=== PATIENT | male | born 1965 | race Caucasian/White ===

== ENCOUNTER 2019-04-26 10:20 | Observation (INO) ==
[2019-04-26 11:19] LABS: Basophils # (auto) 0.02 K/uL (0-0.2); Basophils % (auto) 0.2 %; Eosinophils # (auto) 0.03 K/uL (0-0.5); Eosinophils % (auto) 0.3 %; Hematocrit (blood only) 39.4 % (42-52); Hemoglobin 13.5 g/dL (14.0-18.0); Immature Granulocytes # (auto) 0.02 K/uL (0.00-0.02); Immature Granulocytes % (auto) 0.2 %; Lymphocytes # (auto) 0.86 K/uL (1.2-3.4); Mean Corpuscular Hgb Conc 34.3 g/dL (32-36); Mean Corpuscular Volume 89.1 fL (80-100); Mean Platelet Volume 9.6 fL (7.4-10.4); Monocytes # (auto) 0.83 K/uL (0.11-0.59); Monocytes % (auto) 7.7 %; Neutrophils # (auto) 8.98 K/uL (1.4-6.5); Neutrophils % (auto) 83.6 %; Platelet Count 208 K/uL (130-400); RDW Coefficient of Variation 18.6 % (11.5-14.5); RDW Standard Deviation 61.2 fL (36.4-46.3); Red Blood Count 4.42 M/uL (4.7-6.1); White Blood Count 10.74 K/uL (4.8-10.8)
[2019-04-26 11:30] LABS: INR 1.4 (0.9-1.1); Partial Thromboplastin Ratio 0.9; Partial Thromboplastin Time 23.3 Seconds (21.0-31.0); Prothrombin Time 13.7 Seconds (9.0-12.0)
[2019-04-26 11:38] LABS: Albumin Level 3.9 gm/dl (3.4-5.0); Calcium 8.6 mg/dl (8.5-10.1); Est GFR (African American) 87.1; Est GFR (Non-African American) 75.2; Potassium 4.3 mmol/L (3.5-5.1)
[2019-04-26 11:41] LABS: Albumin Globulin Ratio 1.1 (0.9-2); Bilirubin,Total 1.1 mg/dl (0.2-1); Globulin 3.4 gm/dl (2.5-4.0); Total Protein 7.3 gm/dl (6.4-8.2)
[2019-04-26] MEDS ORDERED: IOVERSOL 100ml IV PRN (11:44)
--- NOTE | 2019-04-26 12:14 | CT Scan Report ---
CT SCAN OF THE ABDOMEN AND PELVIS WITH IV CONTRAST CLINICAL HISTORY: Lower abdominal pain. Hematochezia. COMPARISON STUDY: Abdominal CT dated 04/17/2007. TECHNIQUE: Following the IV administration of 94 cc of Optiray 320, CT scan of the abdomen and pelvi s is performed from the lung bases to the proximal femora. Images are reviewed in the axial, sagittal , and coronal planes. IV contrast was administered without complication. A dose lowering technique wa s utilized adhering to the principles of ALARA. CT DOSE: 583.14 mGy.cm FINDINGS: Lung bases: The heart is top normal in size and without pericardial effusion. There are coronary charlee ry calcifications. There is a tiny hiatal hernia. The lung bases are clear. Liver: The contrast-enhanced liver is normal in size. The liver is cirrhotic in morphology and hetero geneous in attenuation, with nodularity of the surface contour. There is no intrahepatic biliary duct al dilatation. The hepatic veins and portal veins are patent. A subcentimeter hypodensity in segment IV likely represents a cyst but is too small for definitive characterization. Gallbladder: Unremarkable. Spleen: Normal in size and attenuation. Pancreas: Unremarkable. Adrenal glands: Unremarkable. Kidneys: The contrast enhanced kidneys are normal in size and without hydronephrosis. The kidneys enh ance symmetrically. Abdominal vasculature: The abdominal aorta is normal in course and caliber noting moderate to advance d atherosclerotic calcification. Bowel: There is postoperative change from left colon resection with colocolonic anastomosis. No bowel obstruction is seen. There is significant rectosigmoid fecal retention. Mild perirectal stranding is noted. There is mild diverticulosis of the left colon without CT evidence of acute diverticulitis. T he appendix is well-visualized and normal. Peritoneum: There is no intraperitoneal free air or abdominal ascites. Lymphadenopathy: None. Pelvic viscera: The the prostate gland is enlarged and heterogeneous noting median lobe hypertrophy. The bladder is distended. The bladder wall is mildly thickened and trabeculated indicating chronic ou tlet obstruction. There are bilateral varicoceles, with venous collaterals present in the groin bilat erally. Skeletal structures: The skeletal structures are osteopenic. Mild to moderate lumbosacral spondylosis is observed. A large posterior disc osteophyte complex is seen at L4-L5. Degenerative change is note d in the sacroiliac joints and pubic symphysis. No lytic or blastic lesions are seen. IMPRESSION: 1. There is significant rectosigmoid fecal retention with associated perirectal stranding. Correlate clinically for evidence of proctitis. 2. There are postoperative changes from left colon resection with colocolonic anastomosis as well as moderate constipation. No bowel obstruction is seen. 3. The liver shows changes of cirrhosis. 4. Additional findings as above. Electronically signed by: Tyree Mensah M.D. 04/26/2019 12:13 PM
[2019-04-26] MEDS ORDERED: HYDROmorphone INJ 0.5 MG/0.5 ML SYR IV STA (12:38)
[2019-04-26] MEDS ORDERED: GLYCERIN ADULT 12 EA SUPP PR ONE (13:26)
[2019-04-26] MEDS ORDERED: LORazepam 0.5 MG/1 ML VIAL IV STA (13:29)
[2019-04-26] MEDS ORDERED: LAVAGE SOLUTION 4000ML PO SCH (13:30)
--- NOTE | 2019-04-26 14:14 | History & Physical Report ---
Date of Service April 26, 2019 Assessment & Plan (1) Proctitis: (2) Bright red rectal bleeding: (3) Fecal impaction: This is a 54-year-old male who has a significant past medical history of hypertension, anxiety, alcohol use, elevated transaminitis, history of diverticulitis status post left colon resection, pre-DM who presents to [facility] ED secondary to bright red blood per rectum x1 day. In ED patient with gross bright red blood per rectum CT scan abd/pelvis: significant rectosigmoid fecal retention with associated perirectal stranding concerning for proctitis. Postoperative changes from left colon resection with colocolonic anastomosis as well as moderate constipation, no obstruction seen. Liver shows changes concerning of cirrhosis. Hemoglobin and hematocrit stable at 13.5 and 39.4 INR elevated at 1.4 BMP unremarkable LFTs significant for AST 86, T bili 1.1 ED provider discussed case with GI Dr. Saravia - recommends admit and tx with with glycerin suppos and Golytely admit to med/surg administer glycerin suppository/Golytely Repeat H/H at 8pm and in a.m. Consult GI Clear liquid diet, NPO after midnight Hold home meloxicam for now, takes for arthralgias (4) HTN (hypertension): Blood pressure slightly elevated likely secondary to anxiety and discomfort Continue HCTZ and metoprolol (5) Pre-diabetes: A1c 5.7 Diet and lifestyle modification Recommend alcohol cessation (6) Anxiety: Ativan as needed (7) Alcohol use: Patient admits to drinking 6 beers 3-4 nights a week AWSS protocol Gabapentin taper protocol prn ativan (8) Elevated transaminase level: CT scan of abdomen reveals cirrhotic changes of liver AST 86, T bili 1.1, INR 1.4 Transaminases noted to be elevated in 2017 Recommend alcohol cessation GI on board, will have them weigh in on cirrhosis as well will need outpt GI follow up MELD 11 based on current labs (9) DVT prophylaxis: Pt ambulatory no chemical prophylaxis given lower GI bleed Disposition: Discharge to home when able Follow-up: PCP Dr. Lindo upon discharge; also recommend outpatient GI follow-up given proctitis and findings on CT scan consistent with cirrhosis Patient was seen and examined in collaboration with Dr. Lala, please see addendum. History of Present Illness Chief Complaint: Bright red blood per rectum x1 day. Primary Care Provider: Rashmi Lindo MD This is a 54-year-old male who has a significant past medical history of hypertension, anxiety, alcohol use, elevated transaminitis, history of diverticulitis status post left colon resection, pre-DM who presents to [facility] ED secondary to bright red blood per rectum x1 day. Over the past few days patient has overall felt bloated and distended with mild nausea. He has been moving his bowels daily, but when he went to move his bowels this morning he noticed pure blood. Due to blood loss he felt like he was overall dizzy and lightheaded. He recalls having bright red blood per rectum in the past secondary to a hemorrhoid from heavy weightlifting, and thought this might be the case. He denies any pain with his BM or stool incontinence. Currently has stool urgency but unable to defecate. Painful to sit down. Denies any recent fever, chills, sweats, syncope, chest pain, shor tness of breath, abdominal pain, emesis, diarrhea, hematuria, increased urgency or frequency with urination, dysuria. He states he does have a history of diverticulitis which required a sigmoidectomy approximately 10 years ago. He has had a history of colonoscopy significant for diverticulosis but otherwise unremarkable. His appetite has otherwise been fine, no weight loss. Allergies Allergy/AdvReac Type Severity Reaction Status Date / Time lisinopril Allergy Severe ANGIOEDEMA Verified 04/26/19 12:19 Home Medications Home Medications Medication Instructions Recorded Confirmed Type atorvastatin 10 mg PO DAILY 04/26/19 04/26/19 History hydrochlorothiazide 12.5 mg PO DAILY 04/26/19 04/26/19 History lorazepam 0.5 mg PO QID PRN 04/26/19 04/26/19 History meloxicam 15 mg PO DAILY 04/26/19 04/26/19 History metoprolol succinate 25 mg PO BID 04/26/19 04/26/19 History multivitamin 1 tab PO DAILY 04/26/19 04/26/19 History omega [id number]-fish oil [Fish Oil] 1 cap PO DAILY 04/26/19 04/26/19 History Past Med/Surg History Medical History Alcohol use (Chronic) HTN (hypertension) (Chronic) Pre-diabetes (Chronic) Anxiety (Chronic) Left foot drop (Chronic) Diverticulitis (Resolved) Lymphedema (Chronic) Surgical History History of tonsillectomy (Chronic) History of lumbar surgery (Chronic) L4-L5 decompression, residual drop left foot S/P partial colectomy (Resolved) Left colon resection Family History Father Stroke AAA (abdominal aortic aneurysm) Smoker Mother Coronary heart disease Hypertension Smoker Uncle Prostate cancer Diverticulitis Social History Preferred Language: [place] Communication Ability: Effective Beliefs That Will Affect Care: None marital status: Single Current Living Situation: Alone Other Information That Helps Us Care for You: No Feels Safe at Home: Yes Safety Concerns: Feels Safe At This Time Smoking Status: Former smoker packs per day: 1 Years Smoked: 5 Smoking End Da te: 2010 Hx Alcohol Use: Yes Alcohol type: beer Alcohol Intake Frequency: Weekly Alcohol Intake Frequency Comment: 3-4 times per week/6 pack of beer Hx Substance Use: No Childhood Exposure to Second-Hand Smoke: Yes Review of Systems Review of Systems: As noted per HPI, 10 systems reviewed and negative unless noted above. Physical Exam Physical Exam: Gen: WD/WN, M, NAD, standing in room walking around, states "it is painful to sit," pleasant, conversing easily Head: Normocephalic, Atraumatic Eyes: Sclera normal, no conjunctival injection, PERRLA, EOMI ENT: Gross hearing intact, normal pharynx, mucous membranes moist Neck: supple, no adenopathy, No JVD, no bruit, Resp: Clear to auscultation b/l, no wheeze, rales, rhonchi. Normal insp/exp effort, no accessory muscle use CV: Tachycardic rate, regular rhythm, no murmur, rub, gallop, or ectopy Abd: Distended abdomen, firm, NT, hypoactive BS x 4, Musculoskeletal: moves extremities active rom x 4, strength intact, good drafter heating and ventilating strength Extremities: No edema bilaterally Skin: warm, moist, no rash, negative turgor, cap refill < 2sec Neuro: Alert and oriented x 3, speech normal, good mood/affect, cran nerve 2-12 intact grossly : + Bright red blood noted in collection hat and toilet along with drops of blood throughout bathroom and on patient's gown and leg Results & Data Vital Signs (Past 12 Hours) Vital Signs Temp Pulse Pulse Resp BP BP Pulse Ox 04/26/19 12:57 98 H 20 155/88 H 99 04/26/19 10:32 36.5 C 104 H 18 176/94 H 96 Laboratory Results Short CBC 04/26/19 04/26/19 Range/Units 11:04 11:04 WBC 10.74 (4.8-10.8) K/uL Hgb 13.5 L (14.0-18.0) g/dL Hct 39.4 L (42-52) % Plt Count 208 (130-400) K/uL AST 86 H (15-37) U/L BMP 04/26/19 11:04 Sodium 140 Potassium 4.3 Chloride 105 Carbon Dioxide 30 BUN 12 Creatinine 1.10 Glucose 96 Calcium 8.6 Liver Function 04/26/19 Range/Units 11:04 Total Bilirubin 1.1 H (0.2-1) mg/dl AST 86 H (15-37) U/L ALT 52 (12-78) U/L Alkaline Phosphatase 57 (45-117) U/L Albumin 3.9 (3.4-5.0) gm/dl Diagnostic Findings CT abd/pelvis: IMPRESSION: 1. There is significant rectosigmoid fecal retention with associated perirectal stranding. Correlate clinically for evidence of proctitis. 2. There are postoperative changes from left colon resection with colocolonic anastomosis as well as moderate constipation. No bowel obstruction is seen. 3. The liver shows changes of cirrhosis. 4. Additional findings as above. Medications Administered Ioversol (Optiray 320 100ml) 94 ml IV ONCE PRN PRN Reason: Interaction Checking Stop: 04/30/19 11:43 Last Admin: 04/26/19 11:44 Dose: 94 ml Documented by: [id number] Discontinued Medications Hydromorphone HCl (Dilaudid) 0.5 mg IV NOW STA Stop: 04/26/19 12:39 Last Admin: 04/26/19 12:51 Dose: 0.5 mg Documented by: [id number] Lorazepam (Ativan) 0.5 mg in 1 mls @ 1 mls/min IV NOW STA Stop: 04/26/19 13:30 Last Admin: 04/26/19 13:35 Dose: 1 mls/min Documented by: [id number] Code Status & VTE Plan Code Status Full Code VTE Prophylaxis Plan VTE Prophylaxis will be ordered: No Supervising Physician Co-Signing Physician Notes I have seen and examined the patient with physician security assistant and agree with the assessment and plan as above and would like to comment with changes to the plan that patient presented for episodes of bright red blood per rectum and imaging also concerning for Proctitis. Patient with history of hemorrhoids and colon surgery in the past and also has been taking NSAIDs for musculoskeletal pain. Patient also feels urge to defecate but not able to clear the stool burden completely. Patient will to take the Golytely as recommended by gastroenterology and hopefully this will help cleanse the bowels for any potential colonoscopy and at the same time help with patient to defecate stool. He does not have symptoms of bowel obstruction. For this reason, will hold off giving glycerin suppository for hemorrhoids/proctitis. will instead start patient on IV metronizadole for the inflammation and draw blood cultures prior to start antibiotics. agree with other assessment and plans as documented by physician security assistant General: no acute distress Lungs: clear to auscultation bilaterally Heart: regular rate Abdomen: soft, nontender, some bowel distension Extremities: moves all extremities
[2019-04-26] MEDS ORDERED: GABAPENTIN 1200MG ALCOHOL WITHDRAWAL LOAD PO STA (15:11)
[2019-04-26] MEDS ORDERED: ALUMINUM/MAGNESIUM SUSP 30 ML UDC PO PRN (15:11)
[2019-04-26] MEDS ORDERED: POLYETHYLENE (MIRALAX) 17 GM PACK PO PRN (15:11)
[2019-04-26] MEDS ORDERED: ACETAMINOPHEN 325 MG TAB PO PRN (15:11)
[2019-04-26] MEDS ORDERED: LORazepam 1 MG TAB PO PRN (15:11)
[2019-04-26] MEDS ORDERED: ONDANSETRON INJ 2 MG/ML 2 ML VIAL IV PRN (15:11)
[2019-04-26] MEDS ORDERED: MAGNESIUM HYDROXIDE SUSP 30 ML UDC PO PRN (15:11)
[2019-04-26] MEDS ORDERED: GABAPENTIN 600 MG TAB PO SCH (16:00)
[2019-04-26] MEDS ORDERED: metroNIDAZOLE 500 MG/100 ML BAG IV ONE (16:15)
[2019-04-26] MEDS: LORazepam 0.5 MG TAB PO PRN (16:28)
[2019-04-26] MEDS: LAVAGE SOLUTION 4000ML PO SCH ×3 (16:30→23:58)
[2019-04-26 17:06] LABS: Basophils # (auto) 0.05 K/uL (0-0.2); Basophils % (auto) 0.5 %; Hematocrit (blood only) 39.9 % (42-52); Hemoglobin 13.6 g/dL (14.0-18.0); Immature Granulocytes # (auto) 0.01 K/uL (0.00-0.02); Immature Granulocytes % (auto) 0.1 %; Lymphocytes # (auto) 0.59 K/uL (1.2-3.4); Lymphocytes % (auto) 5.3 %; Mean Corpuscular Volume 91.1 fL (80-100); Mean Platelet Volume 9.7 fL (7.4-10.4); Monocytes # (auto) 0.88 K/uL (0.11-0.59); Monocytes % (auto) 7.9 %; Neutrophils # (auto) 9.58 K/uL (1.4-6.5); Neutrophils % (auto) 86.2 %; Platelet Count 224 K/uL (130-400); RDW Coefficient of Variation 18.6 % (11.5-14.5); RDW Standard Deviation 62.3 fL (36.4-46.3); Red Blood Count 4.38 M/uL (4.7-6.1); White Blood Count 11.11 K/uL (4.8-10.8)
[2019-04-26 17:07] LABS: Mean Corpuscular Hgb Conc 34.1 g/dL (32-36)
--- NOTE | 2019-04-26 17:17 | Emergency Department Note ---
Entered by Percy Daly acting as a scribe for ED Provider Note CHIEF COMPLAINT: Rectal Bleed HISTORY OF PRESENT ILLNESS: The patient is a 54 year old male who presents to the Emergency Room with complaints of rectal bleeding. The patient states he had some rectal bleeding that started this morning. The patient had bleeding months ago due to hemorrhoids. They recommended he stay away from blood thinners. The patient feels very bloated and sore. The patient also feels urge to go to the bathroom but he cannot. He also had a surgery on his colon before. The patient sees Seema Schultz. The patient states he ate some apple sauce before coming in but no other medications were taken prior to arrival. The patient denies any other bleeding. Pt denies LOC, headache, fevers, chills, diaphoresis, visual changes, neck pain, chest pain, breathing difficulties, nausea, vomiting, back pain, melena, urinary symptoms, numbness, weakness, lymphadenopathy, rash, or other complaints. REVIEW OF SYSTEMS: See HPI for pertinent positives and negatives. A total of ten systems were reviewed and were otherwise negative. PMHx/PSHx: Pneumonia, diverticulitis, lymphedema SOCIAL HISTORY: Patient lives at home. PHYSICAL EXAM: GENERAL: Awake, alert, anxious HENT: Normocephalic, atraumatic. Oropharynx unremarkable. EYES: PERRL. Normal conjunctiva. Sclera non-icteric. NECK: Inspection normal. Non-tender. Supple. No nuchal rigidity. FROM. No masses. RESPIRATORY: Clear to auscultation. No wheezes. No rales. Normal respiratory effort. CARDIAC: Normal rate. Normal rhythm. No murmurs. No rubs. Extremities warm and well perfused. Pulses equal. No JVD. GI: Soft, non-distended. Mild lower abdominal tenderness. Mild lower distension. No rebound or guarding. No masses. MUSCULOSKELETAL: Atraumatic. Chest examination reveals no tenderness. The back is symmetrical on inspection without obvious abnormality. There is no CVA tenderness to palpation. No joint edema. LOWER EXTREMITIES: Left leg is slightly larger than the right leg which the patient states is chronic. No edema. No discoloration. NEURO: Normal sensorium. No sensory or motor deficits noted. SKIN: No rash or jaundice noted. RECTAL: gross blood no fissures or obvious external hemorrhoids EMERGENCY DEPARTMENT COURSE: 1046: Past medical records reviewed. The patient was evaluated in room C10, and a complete history and physical examination were performed. 1310: I reassessed the patient Dr. Saravia, unix analyst, who recommended glycerin rectal suppositories and a go-lytely prep. The patient will also be admitted. 1330: I spoke with Yu Douglass PA-C under Dr. Lala, about the patients case and they agreed to accept the patient for further examination. 1335: The patient was admitted. MEDICAL DECISION MAKING: Triage Nursing notes reviewed and agree them. The patient's history was concerning for possible gastrointestinal bleeding. Differential diagnosis: Etiologies such as diverticulosis, AVM, coagulopathy, colitis, inflammatory bowel disease, malignancy,Sara-Dickens tear, esophagitis, peptic ulcer disease, variceal bleed, gastritis, epistaxis, fissure, hemorrhoids, as well as others were entertained. Physical exam: As above. The patient had gross blood on rectal examination. ER treatment provided: IV Dilaudid 0.5 mg x 1 On reassessment the patient felt better. Glycerin suppository and GoLYTELY ordered after consultation with gastroenterology Ativan IV Diagnostics interpreted by me: The labs revealed a subtle anemia on CBC. No leukocytosis. Chemistry panel was unremarkable. Slight elevation of AST and INR. Imaging studies: CT scan of the abdomen pelvis was performed. Moderate fecal impaction noted. Mild proctitis. Consultation: Consultation was made with [facility] gastro[facility]ology and a bowel cleanout was r ecommended. Given the GI bleeding and proctitis admission to the hospital was deemed necessary. I discussed this with the patient and he was in agreement. A consultation was placed with the hospitalist. The case was discussed and diagnostics were reviewed. The patient was evaluated in the ER for further treatment. IMPRESSION: Rectal bleeding, proctitis, fecal impaction, constipation PLAN: Further management by hospitalist Impression & Plan Bright red rectal bleeding, Proctitis, Fecal impaction, Constipation Past Med/Surg History Medical History Alcohol use (Chronic) HTN (hypertension) (Chronic) Pre-diabetes (Chronic) Anxiety (Chronic) Left foot drop (Chronic) Diverticulitis (Resolved) Lymphedema (Chronic) Surgical History History of tonsillectomy (Chronic) History of lumbar surgery (Chronic) L4-L5 decompression, residual drop left foot S/P partial colectomy (Resolved) Left colon resection Family History Father Stroke AAA (abdominal aortic aneurysm) Smoker Mother Coronary heart disease Hypertension Smoker Uncle Prostate cancer Diverticulitis Social History Preferred Language: Georgian Communication Ability: Effective Beliefs That Will Affect Care: None marital status: Single Current Living Situation: Alone Other Information That Helps Us Care for You: No Feels Safe at Home: Yes Safety Concerns: Feels Safe At This Time Smoking Status: Former smoker packs per day: 1 Years Smoked: 5 Smoking End Date: 2010 Hx Alcohol Use: Yes Alcohol type: beer Alcohol Intake Frequency: Weekly Alcohol Intake Frequency Comment: 3-4 times per week/6 pack of beer Hx Substance Use: No Childhood Exposure to Second-Hand Smoke: Yes Results & Data Vital Signs Vital Signs - 24 hr 04/26/19 10:32 04/26/19 12:57 04/26/19 14:03 Temperature 36.5 C Temperature Source Oral Sepsis Recent Fever Within 48 Hours No Sepsis New/Unexplained Change in Mental Status No Sepsis Action Taken by Nursing No Action Required Pulse Rate 104 H Pulse Rate [Apical] 98 H Pulse Strength Normal Respiratory Rate 18 20 Respiratory Depth Normal Blood Pressure 176/94 H Blood Pressure [Left Arm] 155/88 H Blood Pressure Mean 121 Blood Pressure Mean [Left Arm] 110 Blood Pressure Position Sitting Pulse Oximetry 96 99 Oxygen Delivery Method Room Air Room Air Room Air Home Medications Current Medication List: was personally reviewed by me Laboratory Data Attestation: I reviewed the patient's lab results. Result diagrams: 04/26/19 16:53 04/26/19 11:04 Lab Results 04/26/19 04/26/19 04/26/19 Range/Units 11:04 11:04 11:04 WBC 10.74 (4.8-10.8) K/uL RBC 4.42 L (4.7-6.1) M/uL Hgb 13.5 L (14.0-18.0) g/dL Hct 39.4 L (42-52) % MCV 89.1 (80-100) fL MCH 30.5 (25-34) pg MCHC 34.3 (32-36) g/dL RDW Std Deviation 61.2 H (36.4-46.3) fL RDW Coeff of Tamera 18.6 H (11.5-14.5) % Plt Count 208 (130-400) K/uL MPV 9.6 (7.4-10.4) fL Immature Gran % (Auto) 0.2 % Neut % (Auto) 83.6 % Lymph % (Auto) 8.0 % [place] % (Auto) 7.7 % Eos % (Auto) 0.3 % Baso % (Auto) 0.2 % Immature Gran # (Auto) 0.02 (0.00-0.02) K/uL Neut # (Auto) 8.98 H (1.4-6.5) K/uL Lymph # (Auto) 0.86 L (1.2-3.4) K/uL [place] # (Auto) 0.83 H (0.11-0.59) K/uL Eos # (Auto) 0.03 (0-0.5) K/uL Baso # (Auto) 0.02 (0-0.2) K/uL PT 13.7 H (9.0-12.0) Seconds INR 1.4 H (0.9-1.1) APTT 23.3 (21.0-31.0) Seconds PTT Ratio 0.9 Sodium 140 (136-145) mmol/L Potassium 4.3 (3.5-5.1) mmol/L Chloride 105 (98-107) mmol/L Carbon Dioxide 30 (21-32) mmol/L Anion Gap 5.0 (3-11) BUN 12 (7-18) mg/dl Creatinine 1.10 (0.6-1.4) mg/dl Est Cr Clr Drug Dosing 91.0 ml/min Est GFR ( Amer) 87.1 Est GFR (Non-Af Amer) 75.2 BUN/Creatinine Ratio 11.0 (10-20) Glucose 96 (70-99) mg/dl Calcium 8.6 (8.5-10.1) mg/dl Total Bilirubin 1.1 H (0.2-1) mg/dl AST 86 H (15-37) U/L ALT 52 (12-78) U/L Alkaline Phosphatase 57 (45-117) U/L Total Protein 7.3 (6.4-8.2) gm/dl Albumin 3.9 (3.4-5.0) gm/dl Globulin 3.4 (2.5-4.0) gm/dl Albumin/Globulin Ratio 1.1 (0.9-2) Blood Type Antibody Screen 04/26/19 Range/Units 11:04 WBC (4.8-10.8) K/uL RBC (4.7-6.1) M/uL Hgb (14.0-18.0) g/dL Hct (42-52) % MCV (80-100) fL MCH (25-34) pg MCHC (32-36) g/dL RDW Std Deviation (36.4-46.3) fL RDW Coeff of Tamera (11.5-14.5) % Plt Count (130-400) K/uL MPV (7.4-10.4) fL Immature Gran % (Auto) % Neut % (Auto) % Lymph % (Auto) % [place] % (Auto) % Eos % (Auto) % Baso % (Auto) % Immature Gran # (Auto) (0.00-0.02) K/uL Neut # (Auto) (1.4-6.5) K/uL Lymph # (Auto) (1.2-3.4) K/uL [place] # (Auto) (0.11-0.59) K/uL Eos # (Auto) (0-0.5) K/uL Baso # (Auto) (0-0.2) K/uL PT (9.0-12.0) Seconds INR (0.9-1.1) APTT (21.0-31.0) Seconds PTT Ratio Sodium (136-145) mmol/L Potassium (3.5-5.1) mmol/L Chloride (98-107) mmol/L Carbon Dioxide (21-32) mmol/L Anion Gap (3-11) BUN (7-18) mg/dl Creatinine (0.6-1.4) mg/dl Est Cr Clr Drug Dosing ml/min Est GFR ( Amer) Est GFR (Non-Af Amer) BUN/Creatinine Ratio (10-20) Glucose (70-99) mg/dl Calcium (8.5-10.1) mg/dl Total Bilirubin (0.2-1) mg/dl AST (15-37) U/L ALT (12-78) U/L Alkaline Phosphatase (45-117) U/L Total Protein (6.4-8.2) gm/dl Albumin (3.4-5.0) gm/dl Globulin (2.5-4.0) gm/dl Albumin/Globulin Ratio (0.9-2) Blood Type AB Negative Antibody Screen NEGATIVE Administered Medications Lorazepam (Ativan) 0.5 mg PO QID PRN PRN Reason: Anxiety Stop: 05/26/19 15:10 Last Admin: 04/26/19 16:28 Dose: 0.5 mg Documented by: [id number] Polyethylene Glycol/Electrolytes (Golytely) 4 dose PO Q4H ALYSE Stop: 04/27/19 03:46 Last Admin: 04/26/19 16:30 Dose: 4 dose Documented by: [id number] Discontinued Medications Gabapentin (Neurontin) 1,200 mg PO TODAY@1600 ALYSE Stop: 04/26/19 16:01 Last Admin: 04/26/19 16:28 Dose: 1,200 mg Documented by: [id number] Hydromorphone HCl (Dilaudid) 0.5 mg IV NOW STA Stop: 04/26/19 12:39 Last Admin: 04/26/19 12:51 Dose: 0.5 mg Documented by: [id number] Lorazepam (Ativan) 0.5 mg in 1 mls @ 1 mls/min IV NOW STA Stop: 04/26/19 13:30 Last Admin: 04/26/19 13:35 Dose: 1 mls/min Documented by: [id number] Ioversol (Optiray 320 100ml) 94 ml IV ONCE PRN PRN Reason: Interaction Checking Stop: 04/30/19 11:43 Last Admin: 04/26/19 11:44 Dose: 94 ml Documented by: [id number] Imaging Data Attestation: I personally reviewed and interpreted this imaging study as follows: Radiologist's Impression: Radiology results have been interpreted by the radiologist and reviewed by me. CT SCAN OF THE ABDOMEN AND PELVIS WITH IV CONTRAST CLINICAL HISTORY: Lower abdominal pain. Hematochezia. COMPARISON STUDY: Abdominal CT dated 04/17/2007. TECHNIQUE: Following the IV administration of 94 cc of Optiray 320, CT scan of the abdomen and pelvis is performed from the lung bases to the proximal femora. Images are reviewed in the axial, sagittal, and coronal planes. IV contrast was administered without complication. A dose lowering technique was utilized adhering to the principles of ALARA. CT DOSE: 583.14 mGy.cm FINDINGS: Lung bases: The heart is top normal in size and without pericardial effusion. There are coronary artery calcifications. There is a tiny hiatal hernia. The sohail ng bases are clear. Liver: The contrast-enhanced liver is normal in size. The liver is cirrhotic in morphology and heterogeneous in attenuation, with nodularity of the surface contour. There is no intrahepatic biliary ductal dilatation. The hepatic veins and portal veins are patent. A subcentimeter hypodensity in segment IV likely represents a cyst but is too small for definitive characterization. Gallbladder: Unremarkable. Spleen: Normal in size and attenuation. Pancreas: Unremarkable. Adrenal glands: Unremarkable. Kidneys: The contrast enhanced kidneys are normal in size and without hy dronephrosis. The kidneys enhance symmetrically. Abdominal vasculature: The abdominal aorta is normal in course and caliber noting moderate to advanced atherosclerotic calcification. Bowel: There is postoperative change from left colon resection with colocolonic anastomosis. No bowel obstruction is seen. There is significant rectosigmoid fecal retention. Mild perirectal stranding is noted. There is mild diverticulosis of the left colon without CT evidence of acute diverticulitis. The appendix is well-visualized and normal. Peritoneum: There is no intraperitoneal free air or abdominal ascites. Lymphadenopathy: None. Pelvic viscera: The the prostate gland is enlarged and heterogeneous noting median lobe hypertrophy. The bladder is distended. The bladder wall is mildly thickened and trabeculated indicating chronic outlet obstruction. There are bilateral varicoceles, with venous collaterals present in the groin bilaterally. Skeletal structures: The skeletal structures are osteopenic. Mild to moderate lumbosacral spondylosis is observed. A large posterior disc osteophyte complex is seen at L4-L5. Degenerative change is noted in the sacroiliac joints and pubic symphysis. No lytic or blastic lesions are seen. IMPRESSION: 1. There is significant rectosigmoid fecal retention with associated perirectal stranding. Correlate clinically for evidence of proctitis. 2. There are postoperative changes from left colon resection with colocolonic anastomosis as well as moderate constipation. No bowel obstruction is seen. 3. The liver shows changes of cirrhosis. 4. Additional findings as above. Electronically signed by: Tyree Mensah M.D. 04/26/2019 12:13 PM Blood Pressure Blood Pressure Findings: Elevated blood pressure Blood Pressure Disposition: further management by hospitalist Discharge Plan Visit Data *Final* Discharge Date/Time: 04/26/19 14:20 Chief Complaint: Rectal Bleed Stated Complaint: RECTAL BLEED ED Provider: Angel Jesus Discharge Problem: Bright red rectal bleeding, Proctitis, Fecal impaction, Constipation Patient Disposition: Admitted As Inpatient Discharge Instructions Interventions: ED Discharge Assessment Last Done: 04/26/19 14:20 Discharge Problem: Constipation Qualifiers: Constipation type: unspecified constipation type Qualified Code(s): K59.00 - Constipation, unspecified The scribe's documentation has been prepared under my direction and personally reviewed by me in its entirety. I confirm that the note above accurately ref lects all work, treatment, procedures, and medical decision making performed by me.
[2019-04-26] MEDS: METOPROLOL SUCC 25MG EXT REL TAB PO SCH (20:46)
[2019-04-26] MEDS: GABAPENTIN 600 MG TAB PO SCH (22:06)
[2019-04-26] MEDS: metroNIDAZOLE 500 MG/100 ML BAG IV SCH (23:55)
[2019-04-27] MEDS: LAVAGE SOLUTION 4000ML PO SCH (04:00)
[2019-04-27] MEDS: GABAPENTIN 600 MG TAB PO SCH (05:42)
[2019-04-27 07:36] LABS: Hematocrit (blood only) 39.9 % (42-52); Hemoglobin 13.5 g/dL (14.0-18.0); Mean Corpuscular Hgb Conc 33.8 g/dL (32-36); Mean Corpuscular Volume 89.7 fL (80-100); Mean Platelet Volume 9.7 fL (7.4-10.4); Platelet Count 207 K/uL (130-400); RDW Coefficient of Variation 18.6 % (11.5-14.5); RDW Standard Deviation 62.1 fL (36.4-46.3); Red Blood Count 4.45 M/uL (4.7-6.1); White Blood Count 8.85 K/uL (4.8-10.8)
[2019-04-27 07:48] LABS: INR 1.4 (0.9-1.1); Prothrombin Time 13.7 Seconds (9.0-12.0)
[2019-04-27 08:08] LABS: Albumin Level 3.7 gm/dl (3.4-5.0); BUN Creatinine Ratio 10.7 (10-20); Calcium 8.8 mg/dl (8.5-10.1); Creatinine Clr Calc Pharmacy 107.6 ml/min; Est GFR (African American) 106.7; Est GFR (Non-African American) 92.1
[2019-04-27 08:13] LABS: Albumin Globulin Ratio 1.1 (0.9-2); Globulin 3.3 gm/dl (2.5-4.0)
[2019-04-27] MEDS ORDERED: hydroCHLOROthiazide 25 MG TAB PO SCH (09:00)
[2019-04-27] MEDS ORDERED: ATORVASTATIN 10 MG TAB PO SCH (09:00)
[2019-04-27] MEDS: METOPROLOL SUCC 25MG EXT REL TAB PO SCH (09:30)
[2019-04-27] MEDS: LORazepam 0.5 MG TAB PO PRN (09:38)
[2019-04-27] MEDS: metroNIDAZOLE 500 MG/100 ML BAG IV SCH (09:38)
--- NOTE | 2019-04-27 10:07 | Gastrointestinal Consultation ---
Date of Consultation April 27, 2019 Assessment & Plan (1) Bright red rectal bleedin54 year old male admitted w/ rectal bleeding, CT w/ evidence of proctitis, fecal retention clinically improve on bowel regimen. He is awake, alert, oriented x 3, feeling well wants to go home. Would avoid narcotic analgesia Would continue a bowel regimen at discharge w/ Miralax 1 capful 1-2 times daily Will need OP Colonoscopy Should have OP GI follow up for questionable cirrhosis on imaging Would recommend ETOH cessation GI to sign off Thank you for allowing us to participate in the care of this patient. Please call with any acute changes, questions or concerns. Please see addendum below with additional recommendation from my supervising physician. Present on Admission?: Yes (2) Fecal impaction: Supervising Physician Co-Signing Physician Notes I have personally seen and examined the patient with KEILY Arteaga. Her note reflects my exam and findings. I agree with her impression and plan. Doing well and wants to go home. Bowels moving more regularly. Will arrange out patient colonoscopy. Advance diet as per hospitalist service. Charles Moreno M.D. History of Present Illness Reason for Consultation: constipation, proctitis Requesting Physician: Spike Attending Physician: Steven Lala MD History of Present Illness 54 year old male with history of HTN, prediabetes, partial sigmoid colectomy for diverticular disease who presented through the ED for evaluation of rectal bleeding. Pt was seen and evaluated, chart reviewed. He endorses chronic issues with rectal bleeding he felt secondary to external hemorrhoid and straining. He typically moves his bowels once daily but notes constipation over the past week. CT w/ evidence of constipation, proctitis. He was provided w/ laxative therapy and now endorses semi-formed and liquidy green stools. No black or bloody stools w/ regimen. He does use OP narctoic analgesia PRN. Drinks ETOH. No fever, chills, weight loss, CP ,SOB. CT 2019: There is significant rectosigmoid fecal retention with associated perirectal stranding. Correlate clinically for evidence of proctitis. There are postoperative changes from left colon resection with colocolonic anastomosis as well as moderate constipation. No bowel obstruction is seen. The liver shows changes of cirrhosis. Allergies Allergy/AdvReac Type Severity Reaction Status Date / Time lisinopril Allergy Severe ANGIOEDEMA Verified 04/26/19 12:19 Home Medications Home Medications Medication Instructions Recorded Confirmed Type atorvastatin 10 mg PO DAILY 04/26/19 04/26/19 History hydrochlorothiazide 12.5 mg PO DAILY 04/26/19 04/26/19 History lorazepam 0.5 mg PO QID PRN 04/26/19 04/26/19 History metoprolol succinate 25 mg PO BID 04/26/19 04/26/19 History multivitamin 1 tab PO DAILY 04/26/19 04/26/19 History omega 4-xpj-era-fish oil [Fish Oil] 1 cap PO DAILY 04/26/19 04/26/19 History polyethylene glycol 3350 [Miralax] 17 g PO DAILY PRN 30 Days #30 ea 04/27/19 Rx Patient History Medical History Alcohol use (Chronic) HTN (hypertension) (Chronic) Pre-diabetes (Chronic) Anxiety (Chronic) Left foot drop (Chronic) Diverticulitis (Resolved) Lymphedema (Chronic) Surgical History History of tonsillectomy (Chronic) History of lumbar surgery (Chronic) L4-L5 decompression, residual drop left foot S/P partial colectomy (Resolved) Left colon resection Family History Father Stroke AAA (abdominal aortic aneurysm) Smoker Mother Coronary heart disease Hypertension Smoker Uncle Prostate cancer Diverticulitis Social History Preferred Language: Bulgarian Communication Ability: Effective Beliefs That Will Affect Care: None marital status: Single Current Living Situation: Alone Other Information That Helps Us Care for You: No Feels Safe at Home: Yes Safety Concerns: Feels Safe At This Time Smoking Status: Former smoker packs per day: 1 Years Smoked: 5 Smoking End Date: 2010 Hx Alcohol Use: Yes Alcohol type: beer Alcohol Intake Frequency: Weekly Alcohol Intake Frequency Comment: 3-4 times per week/6 pack of beer Hx Substance Use: No Childhood Exposure to Second-Hand Smoke: Yes Review of Systems Constitutional: no fever, no chills and no fatigue Respiratory: no cough, no dyspnea, no pain on inspiration and no wheezing Cardiovascular: no chest pain, no radiating jaw, neck or arm pain, no dyspnea on exertion and no palpitations Gastrointestinal: no abdominal pain, no belching, no early satiety, no vomiting and no coffee ground emesis Physical Exam Constitutional: WD/WN, vitals as above Respiratory: normal respiratory effort, lungs clear to auscultation Cardiovascular: RRR, no murmur, no edema Gastrointestinal (Abdomen): normal bowel sounds, soft, nontender, no hepatosplenomegaly Skin: no rashes, warm and dry Results & Data Vital Signs (Past 12 Hours) Vital Signs Temp Pulse Pulse Resp BP Pulse Ox 04/27/19 08:34 37.1 C 86 20 156/84 H 98 04/27/19 00:04 36.8 C 84 14 158/82 H 93 Laboratory Results 04/27/19 04/27/19 04/27/19 Range/Units 07:21 07:21 07:21 WBC 8.85 (4.8-10.8) K/uL RBC 4.45 L (4.7-6.1) M/uL Hgb 13.5 L (14.0-18.0) g/dL Hct 39.9 L (42-52) % MCV 89.7 (80-100) fL MCH 30.3 (25-34) pg MCHC 33.8 (32-36) g/dL RDW Std Deviation 62.1 H (36.4-46.3) fL RDW Coeff of Tamera 18.6 H (11.5-14.5) % Plt Count 207 (130-400) K/uL MPV 9.7 (7.4-10.4) fL Immature Gran % (Auto) % Neut % (Auto) % Lymph % (Auto) % [place] % (Auto) % Eos % (Auto) % Baso % (Auto) % Immature Gran # (Auto) (0.00-0.02) K/uL Neut # (Auto) (1.4-6.5) K/uL Lymph # (Auto) (1.2-3.4) K/uL [place] # (Auto) (0.11-0.59) K/uL Eos # (Auto) (0-0.5) K/uL Baso # (Auto) (0-0.2) K/uL PT 13.7 H (9.0-12.0) Seconds INR 1.4 H (0.9-1.1) APTT (21.0-31.0) Seconds PTT Ratio Sodium 140 (136-145) mmol/L Potassium 4.0 (3.5-5.1) mmol/L Chloride 103 (98-107) mmol/L Carbon Dioxide 32 (21-32) mmol/L Anion Gap 5.0 (3-11) BUN 10 (7-18) mg/dl Creatinine 0.93 (0.6-1.4) mg/dl Est Cr Clr Drug Dosing 107.6 ml/min Est GFR ( Amer) 106.7 Est GFR (Non-Af Amer) 92.1 BUN/Creatinine Ratio 10.7 (10-20) Glucose 82 (70-99) mg/dl Calcium 8.8 (8.5-10.1) mg/dl Total Bilirubin 2.0 H D (0.2-1) mg/dl AST 65 H (15-37) U/L ALT 47 (12-78) U/L Alkaline Phosphatase 48 (45-117) U/L Total Protein 7.0 (6.4-8.2) gm/dl Albumin 3.7 (3.4-5.0) gm/dl Globulin 3.3 (2.5-4.0) gm/dl Albumin/Globulin Ratio 1.1 (0.9-2) Stool Occult Bld Scrn (Negative) POC Stool Occult Blood Blood Type Antibody Screen 04/26/19 04/26/19 04/26/19 Range/Units Unknown Unknown 16:53 WBC 11.11 H (4.8-10.8) K/uL RBC 4.38 L (4.7-6.1) M/uL Hgb 13.6 L (14.0-18.0) g/dL Hct 39.9 L (42-52) % MCV 91.1 (80-100) fL MCH 31.1 (25-34) pg MCHC 34.1 (32-36) g/dL RDW Std Deviation 62.3 H (36.4-46.3) fL RDW Coeff of Tamera 18.6 H (11.5-14.5) % Plt Count 224 (130-400) K/uL MPV 9.7 (7.4-10.4) fL Immature Gran % (Auto) 0.1 % Neut % (Auto) 86.2 % Lymph % (Auto) 5.3 % [place] % (Auto) 7.9 % Eos % (Auto) 0.0 % Baso % (Auto) 0.5 % Immature Gran # (Auto) 0.01 (0.00-0.02) K/uL Neut # (Auto) 9.58 H (1.4-6.5) K/uL Lymph # (Auto) 0.59 L (1.2-3.4) K/uL [place] # (Auto) 0.88 H (0.11-0.59) K/uL Eos # (Auto) 0.00 (0-0.5) K/uL Baso # (Auto) 0.05 (0-0.2) K/uL PT (9.0-12.0) Seconds INR (0.9-1.1) APTT (21.0-31.0) Seconds PTT Ratio Sodium (136-145) mmol/L Potassium (3.5-5.1) mmol/L Chloride (98-107) mmol/L Carbon Dioxide (21-32) mmol/L Anion Gap (3-11) BUN (7-18) mg/dl Creatinine (0.6-1.4) mg/dl Est Cr Clr Drug Dosing ml/min Est GFR ( Amer) Est GFR (Non-Af Amer) BUN/Creatinine Ratio (10-20) Glucose (70-99) mg/dl Calcium (8.5-10.1) mg/dl Total Bilirubin (0.2-1) mg/dl AST (15-37) U/L ALT (12-78) U/L Alkaline Phosphatase (45-117) U/L Total Protein (6.4-8.2) gm/dl Albumin (3.4-5.0) gm/dl Globulin (2.5-4.0) gm/dl Albumin/Globulin Ratio (0.9-2) Stool Occult Bld Scrn Negative (Negative) POC Stool Occult Blood Pending Blood Type Antibody Screen 04/26/19 04/26/19 04/26/19 Range/Units 11:04 11:04 11:04 WBC (4.8-10.8) K/uL RBC (4.7-6.1) M/uL Hgb (14.0-18.0) g/dL Hct (42-52) % MCV (80-100) fL MCH (25-34) pg MCHC (32-36) g/dL RDW Std Deviation (36.4-46.3) fL RDW Coeff of Tamera (11.5-14.5) % Plt Count (130-400) K/uL MPV (7.4-10.4) fL Immature Gran % (Auto) % Neut % (Auto) % Lymph % (Auto) % [place] % (Auto) % Eos % (Auto) % Baso % (Auto) % Immature Gran # (Auto) (0.00-0.02) K/uL Neut # (Auto) (1.4-6.5) K/uL Lymph # (Auto) (1.2-3.4) K/uL [place] # (Auto) (0.11-0.59) K/uL Eos # (Auto) (0-0.5) K/uL Baso # (Auto) (0-0.2) K/uL PT 13.7 H (9.0-12.0) Seconds INR 1.4 H (0.9-1.1) APTT 23.3 (21.0-31.0) Seconds PTT Ratio 0.9 Sodium 140 (136-145) mmol/L Potassium 4.3 (3.5-5.1) mmol/L Chloride 105 (98-107) mmol/L Carbon Dioxide 30 (21-32) mmol/L Anion Gap 5.0 (3-11) BUN 12 (7-18) mg/dl Creatinine 1.10 (0.6-1.4) mg/dl Est Cr Clr Drug Dosing 91.0 ml/min Est GFR ( Amer) 87.1 Est GFR (Non-Af Amer) 75.2 BUN/Creatinine Ratio 11.0 (10-20) Glucose 96 (70-99) mg/dl Calcium 8.6 (8.5-10.1) mg/dl Total Bilirubin 1.1 H (0.2-1) mg/dl AST 86 H (15-37) U/L ALT 52 (12-78) U/L Alkaline Phosphatase 57 (45-117) U/L Total Protein 7.3 (6.4-8.2) gm/dl Albumin 3.9 (3.4-5.0) gm/dl Globulin 3.4 (2.5-4.0) gm/dl Albumin/Globulin Ratio 1.1 (0.9-2) Stool Occult Bld Scrn (Negative) POC Stool Occult Blood Blood Type AB Negative Antibody Screen NEGATIVE 04/26/19 Range/Units 11:04 WBC 10.74 (4.8-10.8) K/uL RBC 4.42 L (4.7-6.1) M/uL Hgb 13.5 L (14.0-18.0) g/dL Hct 39.4 L (42-52) % MCV 89.1 (80-100) fL MCH 30.5 (25-34) pg MCHC 34.3 (32-36) g/dL RDW Std Deviation 61.2 H (36.4-46.3) fL RDW Coeff of Tamera 18.6 H (11.5-14.5) % Plt Count 208 (130-400) K/uL MPV 9.6 (7.4-10.4) fL Immature Gran % (Auto) 0.2 % Neut % (Auto) 83.6 % Lymph % (Auto) 8.0 % [place] % (Auto) 7.7 % Eos % (Auto) 0.3 % Baso % (Auto) 0.2 % Immature Gran # (Auto) 0.02 (0.00-0.02) K/uL Neut # (Auto) 8.98 H (1.4-6.5) K/uL Lymph # (Auto) 0.86 L (1.2-3.4) K/uL [place] # (Auto) 0.83 H (0.11-0.59) K/uL Eos # (Auto) 0.03 (0-0.5) K/uL Baso # (Auto) 0.02 (0-0.2) K/uL PT (9.0-12.0) Seconds INR (0.9-1.1) APTT (21.0-31.0) Seconds PTT Ratio Sodium (136-145) mmol/L Potassium (3.5-5.1) mmol/L Chloride (98-107) mmol/L Carbon Dioxide (21-32) mmol/L Anion Gap (3-11) BUN (7-18) mg/dl Creatinine (0.6-1.4) mg/dl Est Cr Clr Drug Dosing ml/min Est GFR ( Amer) Est GFR (Non-Af Amer) BUN/Creatinine Ratio (10-20) Glucose (70-99) mg/dl Calcium (8.5-10.1) mg/dl Total Bilirubin (0.2-1) mg/dl AST (15-37) U/L ALT (12-78) U/L Alkaline Phosphatase (45-117) U/L Total Protein (6.4-8.2) gm/dl Albumin (3.4-5.0) gm/dl Globulin (2.5-4.0) gm/dl Albumin/Globulin Ratio (0.9-2) Stool Occult Bld Scrn (Negative) POC Stool Occult Blood Blood Type Antibody Screen
--- NOTE | 2019-04-27 12:30 | Hospitalist Progress Note ---
Date of Service April 27, 2019 Assessment & Plan (1) Proctitis: (2) Bright red rectal bleeding: (3) Fecal impaction: This is a 54-year-old male who has a significant past medical history of hypertension, anxiety, alcohol use, elevated transaminitis, history of diverticulitis status post left colon resection, pre-DM who presents to [facility] ED secondary to bright red blood per rectum x1 day. In ED patient with gross bright red blood per rectum CT scan abd/pelvis: significant rectosigmoid fecal retention with associated perirectal stranding concerning for proctitis. Postoperative changes from left colon resection with colocolonic anastomosis as well as moderate constipation, no obstruction seen. Liver shows changes concerning of cirrhosis. Hemoglobin and hematocrit stable at 13.5 and 39.4 INR elevated at 1.4 BMP unremarkable LFTs significant for AST 86, T bili 1.1 -Patient with stable hemoglobin and made bowel movements with Golytely bowel prep that was started on 04/26/19 -Patient was seen by [facility] Gastronenterology service and they recommend outpatient colonoscopy for the bright red blood per rectum that patient presented to hospital for. They will coordinate with patient. -Gastroenterology attending physician does not recommend further antibiotics for proctitis and IV metronidazole stopped on discharge day -Patient may take Miralax 1 capful 1-2 times daily for bowel movements -Patient should avoid excessive use of meloxicam or other NSAID (nonsteroidal anti-inflammatory drugs ) medications (Aleve, Motrin ibuprofen) -Patient should avoid alcohol use -Patient should follow up with primary care doctor to follow up blood counts in 1 week or if more abdomen symptoms (4) HTN (hypertension): -Patient should follow up with primary care doctor on blood pressure control -Continue HCTZ and metoprolol (5) Pre-diabetes: A1c 5.7 Diet and lifestyle modification by avoiding alcohol (6) Anxiety: mood stable (7) Alcohol use: no alcohol withdrawal symptoms while in the hospital recommended alcohol reduction at home (8) Elevated transaminase level: gastronenterology outpatient colonoscopy plans CT scan of abdomen reveals cirrhotic changes of liver and recommended patient to cut down on alcohol use to protect liver from future changes (9) DVT prophylaxis: ambulatory Discharge Diagnosis Bright red rectal bleeding, Proctitis, Fecal impaction, hypertension Subjective Patient able to make bowel movements yesterday from the bowel prep. blood count stable and gastroenterology recommends outpatient colonoscopy. Patient would like to go home. no abdomen pain. bowels feel better. no chest pain. no shortness of breath. no dizziness. no lightheadedness. no vomiting. discussed with patient about avoiding NSAIDs to avoid GI bleed and alcohol to prevent future liver problems and following up with primary care doctor for blood pressure and other health issues Physical Exam Constitutional: WD/WN, vitals as above Eyes: PERRL, conjunctivae normal, anicteric sclerae EOM intact bilaterally ENMT: external ear and nose normal, oropharynx normal Neck: trachea midline, no thyromegaly normal visual inspection Respiratory: normal respiratory effort, lungs clear to auscultation Cardiovascular: RRR, no murmur, no edema Gastrointestinal (Abdomen): normal bowel sounds, soft, nontender, no hepatosp lenomegaly Musculoskeletal: no cyanosis or clubbing, extremities motor strength 5/5 Head/Neck/Chest: normocephalic and head atraumatic Neurologic: PERRL, EOMI, accommodation nl, no face palsy, no dysarthria CN's II-XI intact bilaterally Psychiatric: A+Ox3, euthymic affect Results & Data Vital Signs (Past 12 Hours) Vital Signs Temp Pulse Pulse Pulse Pulse Resp BP 04/27/19 11:57 37.1 C 92 H 20 178/84 H 04/27/19 11:54 37.1 C 86 105 H 84 87 20 156/84 H 04/27/19 08:34 37.1 C 86 20 156/84 H BP Pulse Ox 04/27/19 11:57 97 04/27/19 11:54 145/82 H 98 04/27/19 08:34 98
--- NOTE | 2019-04-27 12:41 | Discharge Summary ---
Date of Service April 27, 2019 Admission HPI Per Admitting Provider This is a 54-year-old male who has a significant past medical history of hypertension, anxiety, alcohol use, elevated transaminitis, history of diverticulitis status post left colon resection, pre-DM who presents to [facility] ED secondary to bright red blood per rectum x1 day. Over the past few days patient has overall felt bloated and distended with mild nausea. He has been moving his bowels daily, but when he went to move his bowels this morning he noticed pure blood. Due to blood loss he felt like he was overall dizzy and lightheaded. He recalls having bright red blood per rectum in the past secondary to a hemorrhoid from heavy weightlifting, and thought this might be the case. He denies any pain with his BM or stool incontinence. Currently has stool urgency but unable to defecate. Painful to sit down. Denies any recent fever, chills, sweats, syncope, chest pain, shortness of breath, abdominal pain, emesis, diarrhea, hematuria, increased urgency or frequency with urination, dysuria. He states he does have a history of diverticulitis which required a sigmoidectomy approximately 10 years ago. He has had a history of colonoscopy significant for diverticulosis but otherwise unremarkable. His appetite has otherwise been fine, no weight loss. Admission Exam Per Admitting Provider Gen: WD/WN, M, NAD, standing in room walking around, states "it is painful to sit," pleasant, conversing easily Head: Normocephalic, Atraumatic Eyes: Sclera normal, no conjunctival injection, PERRLA, EOMI ENT: Gross hearing intact, normal pharynx, mucous membranes moist Neck: supple, no adenopathy, No JVD, no bruit, Resp: Clear to auscultation b/l, no wheeze, rales, rhonchi. 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 Extremities: No edema bilaterally Skin: warm, moist, no rash, negative turgor, cap refill < 2sec Neuro: Alert and oriented x 3, speech normal, good mood/affect, cran nerve 2-12 intact grossly : + Bright red blood noted in collection hat and toilet along with drops of blood throughout bathroom and on patient's gown and leg Principal Diagnosis Bright red rectal bleeding, Proctitis, Fecal impaction, hypertension Discharge Exam Constitutional WD/WN, vitals as above Eyes PERRL, conjunctivae normal, anicteric sclerae EOM intact bilaterally ENMT external ear and nose normal, oropharynx normal Neck trachea midline, no thyromegaly normal visual inspection Respiratory normal respiratory effort, lungs clear to auscultation Cardiovascular RRR, no murmur, no edema Gastrointestinal (Abdomen) normal bowel sounds, soft, nontender, no hepatosplenomegaly Musculoskeletal no cyanosis or clubbing, extremities motor strength 5/5 Head/Neck/Chest: normocephalic and head atraumatic Neurologic PERRL, EOMI, accommodation nl, no face palsy, no dysarthria CN's II-XI intact bilaterally Psychiatric A+Ox3, euthymic affect Discharge Data Allergies Allergy/AdvReac Type Severity Reaction Status Date / Time lisinopril Allergy Severe ANGIOEDEMA Verified 04/26/19 12:19 Consultations 04/26/19 13:26 ED Decision to Admit Stat 04/26/19 15:11 Consult Gastroenterology Routine Ordered Studies 04/26/19 10:59 CT abd pelvis IV con only Stat Hospital Course (1) Proctitis: (2) Bright red rectal bleeding: (3) Fecal impaction: This is a 54-year-old male who has a significant past medical history of hypertension, anxiety, alcohol use, elevated transaminitis, history of diverticulitis status post left colon resection, pre-DM who presents to [facility] ED secondary to bright red blood per rectum x1 day. In ED patient with gross bright red blood per rectum CT scan abd/pelvis: significant rectosigmoid fecal retention with associated perirectal stranding concerning for proctitis. Postoperative changes from left colon resection with colocolonic anastomosis as well as moderate constipation, no obstruction seen. Liver shows changes concerning of cirrhosis. Hemoglobin and hematocrit stable at 13.5 and 39.4 INR elevated at 1.4 BMP unremarkable LFTs significant for AST 86, T bili 1.1 -Patient with stable hemoglobin and made bowel movements with Golytely bowel prep that was started on 04/26/19 -Patient was seen by [facility] Gastronenterology service and they recommend outpatient colonoscopy for the bright red blood per rectum that patient presented to hospital for. They will coordinate with patient. -Gastroenterology attending physician does not recommend further antibiotics for proctitis and IV metronidazole stopped on discharge day -Patient may take Miralax 1 capful 1-2 times daily for bowel movements -Patient should avoid excessive use of meloxicam or other NSAID (nonsteroidal anti-inflammatory drugs ) medications (Aleve, Motrin ibuprofen) -Patient should avoid alcohol use -Patient should follow up with primary care doctor to follow up blood counts in 1 week or if more abdomen symptoms (4) HTN (hypertension): -Patient should follow up with primary care doctor on blood pressure control -Continue HCTZ and metoprolol (5) Pre-diabetes: A1c 5.7 Diet and lifestyle modification by avoiding alcohol (6) Anxiety: mood stable (7) Alcohol use: no alcohol withdrawal symptoms while in the hospital recommended alcohol reduction at home (8) Elevated transaminase level: gastronenterology outpatient colonoscopy plans CT scan of abdomen reveals cirrhotic changes of liver and recommended patient to cut down on alcohol use to protect liver from future changes (9) DVT prophylaxis: ambulatory Discharge Diagnosis Bright red rectal bleeding, Proctitis, Fecal impaction, hypertension Total Time Total Time Spent Total Time Spent (In Minutes): 40 minutes Total Time Includes: Examination of the Patient, Discharge Planning, Medication Reconciliation and Communication With Other Providers Discharge Plan Discharge Items Patient Disposition: Home - Self-Care Reason For Visit: PROCTITIS,LGIB Discharge Diagnosis: Bright red rectal bleeding, Proctitis, Fecal impaction, hypertension Condition: Good Discharge Goals: Improve disease control Activity: Resume your previous activity Non-emergency contact: Primary Care Provider and 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 They will coordinate with patient. Gastroenterology attending physician does not recommend further antibiotics for proctitis and IV metronidazole stopped on discharge day Patient may take Miralax 1 capful 1-2 times daily for bowel movements Patient should avoid excessive use of meloxicam or other NSAID (nonsteroidal anti-inflammatory drugs ) medications (Aleve, Motrin ibuprofen) Patient should avoid alcohol use Patient should follow up with primary care doctor to follow up blood counts in 1 week or if more abdomen symptoms and for further management of other health issues such as hypertension Prescriptions: New polyethylene glycol 3350 [Miralax] 17 gram Powder In Packet 17 g PO DAILY PRN (Reason: constipation) 30 Days Qty: 30 RF: 0 Continued multivitamin Tablet 1 tab PO DAILY RF: 0 hydrochlorothiazide 12.5 mg capsule 12.5 mg PO DAILY RF: 0 metoprolol succinate 25 mg tablet extended release 24 hr 25 mg PO BID RF: 0 atorvastatin 10 mg tablet 10 mg PO DAILY RF: 0 lorazepam 0.5 mg tablet 0.5 mg PO QID PRN (Reason: Anxiety) RF: 0 omega [id number]-ksi-[id number]-fish oil [Fish Oil] 1,000 mg (120 mg-180 mg) Capsule 1 cap PO DAILY RF: 0 Discontinued meloxicam 15 mg tablet 15 mg PO DAILY RF: 0 Stand-Alone Forms: [facility]/Other Patient Handouts: Bleeding Rectal Evaluate Treat, Bleeding Rectal Discharge Orders: Discharge Order (Routine); Ordered 04/27/19 Ordered By: Steven Lala Admission Data Admit Date/Time: 04/26/19 14:04 Attending Provider: Steven Lala Admit Provider: Steven Lala Primary Care Provider: Rashmi Lindo Other Providers: Leopoldo Saravia ; Steven Lala Service: Surgical Services Other Interventions: Discharge Summary Assessment (RN) Last Done: 04/27/19 11:54
[2019-04-27] MEDS ORDERED: GABAPENTIN 600 MG TAB PO SCH (14:00)
[2019-04-28] MEDS ORDERED: GABAPENTIN 600 MG TAB PO SCH (18:00)
[2019-04-30] MEDS ORDERED: GABAPENTIN 600 MG TAB PO SCH (06:00)
== END 2019-04-27 12:46 | disposition home or self-care (01) ==
LOC: ED 10:20 → 3W 10:20

== ENCOUNTER 2019-10-13 14:11 | Inpatient (IN) ==
[2019-10-13] MEDS ORDERED: ACETAMINOPHEN 325 MG TAB PO PRN (14:16)
[2019-10-13] MEDS ORDERED: LORazepam 3 MG/6 ML VIAL IV PRN (14:18)
[2019-10-13] MEDS ORDERED: GABAPENTIN 1200MG ALCOHOL WITHDRAWAL LOAD PO STA (14:18)
[2019-10-13] MEDS ORDERED: LORazepam 1 MG/2 ML VIAL IV PRN (14:18)
[2019-10-13] MEDS ORDERED: ATIVAN IV ALCOHOL WITHDRAWL IV PRN (14:18)
[2019-10-13] MEDS ORDERED: MULTI-VITAMIN INFUSION 10 ML, THIAMINE HCL 100 MG, FOLIC ACID 1 MG in SODIUM CHLORIDE 0... IV ONE (14:18)
[2019-10-13] MEDS ORDERED: LORazepam 2 MG/4 ML VIAL IV PRN (14:18)
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
[2019-10-13 15:44] LABS: Basophils # (auto) 0.03 K/uL (0-0.2); Basophils % (auto) 0.4 %; Eosinophils # (auto) 0.04 K/uL (0-0.5); Eosinophils % (auto) 0.5 %; Hematocrit (blood only) 30.8 % (42-52); Hemoglobin 10.1 g/dL (14.0-18.0); Immature Granulocytes # (auto) 0.33 K/uL (0.00-0.02); Immature Granulocytes % (auto) 4.2 %; Lymphocytes # (auto) 0.61 K/uL (1.2-3.4); Lymphocytes % (auto) 7.8 %; Mean Corpuscular Hemoglobin 30.8 pg (25-34); Mean Corpuscular Hgb Conc 32.8 g/dL (32-36); Mean Corpuscular Volume 93.9 fL (80-100); Mean Platelet Volume 8.6 fL (7.4-10.4); Monocytes # (auto) 0.18 K/uL (0.11-0.59); Monocytes % (auto) 2.3 %; Neutrophils # (auto) 6.64 K/uL (1.4-6.5); Neutrophils % (auto) 84.8 %; Platelet Count 376 K/uL (130-400); RDW Coefficient of Variation 14.9 % (11.5-14.5); RDW Standard Deviation 51.2 fL (36.4-46.3); Red Blood Count 3.28 M/uL (4.7-6.1); White Blood Count 7.83 K/uL (4.8-10.8)
[2019-10-13] MEDS ORDERED: GABAPENTIN 600 MG TAB PO SCH (16:00)
[2019-10-13 16:04] LABS: Albumin Level 2.7 gm/dl (3.4-5.0); BUN Creatinine Ratio 7.4 (10-20); Calcium 8.6 mg/dl (8.5-10.1); Creatinine Clr Calc Pharmacy 151.7 ml/min; Est GFR (African American) 94.3; Est GFR (Non-African American) 81.4
[2019-10-13 16:07] LABS: Albumin Globulin Ratio 0.6 (0.9-2); Bilirubin,Total 0.3 mg/dl (0.2-1); Globulin 4.7 gm/dl (2.5-4.0); Total Protein 7.4 gm/dl (6.4-8.2)
[2019-10-13] MEDS ORDERED: CONSULT PHARMACY STA (16:11)
[2019-10-13] MEDS ORDERED: ALBUTEROL HFA 8 GM INHALER INH PRN (16:16)
[2019-10-13] MEDS ORDERED: VANCOMYCIN CONSULT ACTIVE PRN (17:06)
[2019-10-13] MEDS ORDERED: PIPERACILL/TAZOBAC CONSULT ACTIVE PRN (17:07)
[2019-10-13] MEDS ORDERED: PIPERACILLIN/TAZOBACTAM 4.5 GM in DEXTROSE 5% 100 ML IV ONE (17:15)
--- NOTE | 2019-10-13 17:22 | Orthopedic Consultation ---
Date of Consultation October 13, 2019 Assessment & Plan (1) Post-operative infection: Extensive foul-smelling infection in right elbow after previous distal triceps repair. Underwent I&D surgery today. All hardware removed. Will plan for repeat I&D . Admitted to Medicine service for IV antibiotic treatment and management of alcoholism with risk of withdrawal. Appreciate Medicine team's assistance. History of Present Illness Reason for Consultation: Right elbow postoperative infection Attending Physician: Aries Shell MD History of Present Illness Mr. Pradhan is a 54 year old male well known to me. He originally sustained a right distal triceps tendon rupture in early August while lifting weights, after several months of pre-existing pain in the distal triceps area. He did not present to me until about 3 weeks after the rupture, and elected for surgical repair, which was completed on 09/17/19, about 4 weeks after injury. At the time of that surgery, there was extensive scar tissue that had to be debrided to complete the repair, which caused a fair amount of bleeding. When I saw him for his 2-week postop appointment on 09/30, he had a small hematoma at the proximal end of his incision, but no wound dehiscence or evidence of infection. He then reports that he developed dehiscence of his wound the next day, with what sounds like bloody hematoma drainage and a large opening at the proximal end of the incision line. However, he did not report this or seek care until 9 days later. We received a message from his therapist with a clinical photograph of his wound showing the dehiscence, and immediately had him come in to clinic for evaluation 10/09. I started him on Bactrim over the weekend and set him up for wound washout today (10/13). Intraoperatively today, there was extensive infection. It was very foul-smelling (Proteus?), with extensive destruction of the distal triceps tendon. The infection clearly tracked into the olecranon as well. I removed all previous non-absorbable suture and the suture anchor in the olecranon. I recommended admission for IV antibiotics and repeat wound washout 10/15/19. Unknown to me before today, apparently he is a heavy alcoholic. His reports that he used to drink 2 gallons of wine per day, but has cut back to about a case of beer per day. It sounds like he had DTs after his last surgery on 09/17, and has a history of DTs during a previous hospital admission. She also notes that he has cirrhosis due to this alcohol abuse. She notes that he will not admit his alcoholism to anyone, and this has caused significant conflict for them in the past, which is why they are currently . Allergies Allergy/AdvReac Type Severity Reaction Status Date / Time lisinopril Allergy Severe ANGIOEDEMA Verified 09/17/19 09:56 Home Medications Home Medications Medication Instructions Recorded Confirmed Type atorvastatin 10 mg PO QAM 04/26/19 10/13/19 History hydrochlorothiazide 12.5 mg PO QAM 04/26/19 10/13/19 History lorazepam 1 mg PO BID PRN 04/26/19 10/13/19 History metoprolol succinate 25 mg PO BID 04/26/19 10/13/19 History multivitamin 1 tab PO QAM 04/26/19 10/13/19 History omega 5-oiq-tgq-fish oil [Fish Oil] 1 cap PO QAM 04/26/19 10/13/19 History albuterol sulfate 90 mcg INHALATION Q6H PRN 09/14/19 10/13/19 History citalopram 40 mg PO QAM 09/14/19 10/13/19 History gabapentin 100 mg PO DAILY 09/14/19 10/13/19 History milk thistle 150 mg PO QAM 09/14/19 10/13/19 History Patient History Medical History Alcohol use disorder Anxiety (Chronic) Diverticulitis (Resolved) hx of HTN (hypertension) (Chronic) Rupture of right triceps tendon (Acute) Seasonal allergies inhaler PRN listed on medications/no hx asthma/copd noted per RN phone assessment Surgical History (Updated 10/13/19 @ 16:00 by Robina Gamez PA-C) History of lumbar surgery (Chronic) L4-L5 decompression, residual drop left foot History of tonsillectomy (Chronic) Hx of colonoscopy Hx of lumbar discectomy x2 S/P partial colectomy (Resolved) Left colon resection S/P tendon repair Family History Father Stroke AAA (abdominal aortic aneurysm) Smoker Mother Coronary heart disease Hypertension Smoker Uncle Prostate cancer Diverticulitis Social History (Updated 10/13/19 @ 16:01 by Robina Gamez PA-C) Preferred Language: Mohawk Communication Ability: Effective 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 reportedly decreased to 6 pack daily Hx Substance Use: No Childhood Exposure to Second-Hand Smoke: Yes Physical Exam Physical Exam: Right elbow with significant infection, now s/p surgical debridement today. Drain/dressings intact. Results & Data Vital Signs (Past 12 Hours) Vital Signs Temp Pulse Pulse Resp BP Pulse Ox 10/13/19 15:29 90 10/13/19 15:17 36.7 C 88 22 150/82 H 97
[2019-10-13] MEDS ORDERED: VANCOMYCIN HCL 2,000 MG in SODIUM CHLORIDE 0.9% 500 ML IV SCH (18:00)
[2019-10-13] MEDS: POLYETHYLENE (MIRALAX) 17 GM PACK PO PRN (19:39)
[2019-10-13] MEDS: OXYCODONE HCL IR 5 MG TAB (IMMEDIATE RELEASE) PO PRN (19:39)
[2019-10-13] MEDS: METOPROLOL SUCC 25MG EXT REL TAB PO SCH (20:59)
[2019-10-13] MEDS: GABAPENTIN 600 MG TAB PO SCH (21:00)
[2019-10-13] MEDS ORDERED: IBUPROFEN 200 MG TAB PO PRN (21:15)
[2019-10-13] MEDS ORDERED: SODIUM CHLORIDE 0.9% 1000ML 1,000 ML IV ONE (21:16)
[2019-10-13] MEDS: PIPERACILLIN/TAZOBACTAM 3.375 GM in DEXTROSE 5% 100 ML IV SCH (21:33)
[2019-10-13] MEDS: KETOROLAC TROMETHAMINE 15 MG/ML VIAL IV PRN (21:40)
[2019-10-13] MEDS: LORazepam 1 MG TAB PO PRN (23:07)
[2019-10-14] MEDS: OXYCODONE HCL IR 5 MG TAB (IMMEDIATE RELEASE) PO PRN ×3 (01:18→21:42)
[2019-10-14] MEDS: PIPERACILLIN/TAZOBACTAM 3.375 GM in DEXTROSE 5% 100 ML IV SCH ×3 (05:30→21:41)
[2019-10-14] MEDS: VANCOMYCIN HCL 1,500 MG in SODIUM CHLORIDE 0.9% 500 ML IV SCH ×2 (05:31→17:56)
[2019-10-14] MEDS: GABAPENTIN 600 MG TAB PO SCH ×3 (05:52→21:43)
[2019-10-14 06:56] LABS: Hematocrit (blood only) 30.9 % (42-52); Hemoglobin 10.4 g/dL (14.0-18.0); Mean Corpuscular Hemoglobin 31.3 pg (25-34); Mean Corpuscular Hgb Conc 33.7 g/dL (32-36); Mean Corpuscular Volume 93.1 fL (80-100); Platelet Count 372 K/uL (130-400); RDW Coefficient of Variation 15.1 % (11.5-14.5); RDW Standard Deviation 51.6 fL (36.4-46.3); Red Blood Count 3.32 M/uL (4.7-6.1); White Blood Count 12.07 K/uL (4.8-10.8)
[2019-10-14 07:28] LABS: Albumin Level 2.5 gm/dl (3.4-5.0); BUN Creatinine Ratio 13.3 (10-20); Calcium 8.6 mg/dl (8.5-10.1); Creatinine Clr Calc Pharmacy 112.6 ml/min; Est GFR (Non-African American) 95.8; Potassium 4.5 mmol/L (3.5-5.1)
[2019-10-14 07:31] LABS: Albumin Globulin Ratio 0.5 (0.9-2); Bilirubin,Total 0.3 mg/dl (0.2-1); Globulin 4.6 gm/dl (2.5-4.0); Total Protein 7.1 gm/dl (6.4-8.2)
[2019-10-14] MEDS: LORazepam 1 MG TAB PO PRN (08:07)
[2019-10-14] MEDS: POLYETHYLENE (MIRALAX) 17 GM PACK PO PRN (08:07)
[2019-10-14] MEDS: MULTIVITAMIN TAB PO SCH (08:08)
[2019-10-14] MEDS: METOPROLOL SUCC 25MG EXT REL TAB PO SCH ×2 (08:08→21:43)
[2019-10-14] MEDS: CITALOPRAM 40 MG TAB PO SCH (08:09)
[2019-10-14] MEDS: ATORVASTATIN 10 MG TAB PO SCH (08:09)
--- NOTE | 2019-10-14 08:31 | Pharmacy Report ---
Pharmacy Abx Dose Short Note - Date of Service October 14, 2019 - Assessment & Plan Assessment 54 year old M receiving Vancomycin and zosyn for treatment of elbow infection. Day # 2 of antimicrobial therapy. * Pt with history of distal tricep repair on 09/17. S/p I&D 10/13/19. * Blood cultures pending * Renal function at baseline Plan Vancomycin IV * Estimated PK Parameters: Vd 0.7 L/kg, Carlo 0.083 hr-1, t1/2 8 hr * Loading dose: 2000 mg (20 mg/kg) * Maintenance dose: 1500 mg IV (15 mg/kg) every 12 hours * Goal trough level : 15 to 20 mcg/mL * Trough level ordered for 10/15/19 @1730 Piperacillin/tazobactam * 4.5 g bolus administered over 30 minutes, then 3.375 g IV extended infusion every 8 hours for CrCl greater than 20 mL/min Pharmacy will continue to follow and will adjust dose/frequency as necessary. Thank you.
[2019-10-14] MEDS ORDERED: hydroCHLOROthiazide 25 MG TAB PO SCH (09:00)
[2019-10-14] MEDS: FOLIC ACID 1 MG TAB PO SCH (09:37)
[2019-10-14] MEDS: THIAMINE HCL 100 MG TAB PO SCH (09:37)
--- NOTE | 2019-10-14 12:04 | Orthopedic Progress Note ---
Date of Service October 14, 2019 Assessment & Plan (1) Wound dehiscence: Wound dehiscence right elbow status post surgery for ruptured triceps. Postop day 1 status post I&D of right elbow done at outpatient surgery center. Current cultures showing staph aureus as noted above. Await sensitivities. Continue current IV antibiotics. Plan for second irrigation and debridement tomorrow. Subjective Patient currently sleeping upon arrival but easily awoken. States he is having some pain in the right elbow. Otherwise he has no complaints. Denies any shortness of breath, chest pain, lightheadedness. States that nursing had to change his dressing last night due to increased drainage. He states that the current dressing is intact and dry. Multiple questions about future plans for surgery concerning antibiotics etc. Most questions answered but discussed that Dr. Acevedo will make definitive plans the near future. Patient understands that a second washout is planned for tomorrow. Physical Exam Physical Exam: Current dressing is clean, dry, and intact. Hemovac drain present but does not appear to be holding suction. He does have some drainage continuing to get into the reservoir though. Able to go through gentle range of motion of the elbow at this time without significant pain. States he has numbness in the third through fifth fingers but has good range of motion and use of the fingers at this time. He states that this has been ongoing. Capillary refill is less than 2 seconds. Good wrist range of motion and there is no overt swelling down into the forearm. Denies shoulder pain at this time. Results & Data Vital Signs (Past 12 Hours) Vital Signs Temp Pulse Pulse Resp BP Pulse Ox 10/14/19 11:26 36.6 C 75 18 145/78 H 97 10/14/19 08:00 74 10/14/19 07:40 36.5 C 72 18 176/100 H 95 10/14/19 04:00 36.5 C 78 155/92 H 95 10/14/19 00:00 74 Laboratory Results Laboratory Results WBC 12.07 K/uL (4.8-10.8) H 10/14/19 06:29 RBC 3.32 M/uL (4.7-6.1) L 10/14/19 06:29 Hgb 10.4 g/dL (14.0-18.0) L 10/14/19 06:29 Hct 30.9 % (42-52) L 10/14/19 06:29 MCV 93.1 fL (80-100) 10/14/19 06:29 MCH 31.3 pg (25-34) 10/14/19 06:29 MCHC 33.7 g/dL (32-36) 10/14/19 06:29 RDW Std Deviation 51.6 fL (36.4-46.3) H 10/14/19 06:29 RDW Coeff of Tamera 15.1 % (11.5-14.5) H 10/14/19 06:29 Plt Count 372 K/uL (130-400) 10/14/19 06:29 MPV 9.0 fL (7.4-10.4) 10/14/19 06:29 Immature Gran % (Auto) 4.2 % 10/13/19 15:22 Neut % (Auto) 84.8 % 10/13/19 15:22 Lymph % (Auto) 7.8 % 10/13/19 15:22 [place] % (Auto) 2.3 % 10/13/19 15:22 Eos % (Auto) 0.5 % 10/13/19 15:22 Baso % (Auto) 0.4 % 10/13/19 15:22 Immature Gran # (Auto) 0.33 K/uL (0.00-0.02) H 10/13/19 15:22 Neut # (Auto) 6.64 K/uL (1.4-6.5) H 10/13/19 15:22 Lymph # (Auto) 0.61 K/uL (1.2-3.4) L 10/13/19 15:22 [place] # (Auto) 0.18 K/uL (0.11-0.59) 10/13/19 15:22 Eos # (Auto) 0.04 K/uL (0-0.5) 10/13/19 15:22 Baso # (Auto) 0.03 K/uL (0-0.2) 10/13/19 15:22 Sodium 136 mmol/L (136-145) 10/14/19 06:29 Potassium 4.5 mmol/L (3.5-5.1) 10/14/19 06:29 Chloride 107 mmol/L (98-107) 10/14/19 06:29 Carbon Dioxide 27 mmol/L (21-32) 10/14/19 06:29 Anion Gap 2.0 (3-11) L 10/14/19 06:29 BUN 12 mg/dl (7-18) 10/14/19 06:29 Creatinine 0.90 mg/dl (0.6-1.4) 10/14/19 06:29 Est Cr Clr Drug Dosing 112.6 ml/min 10/14/19 06:29 Est GFR ( Amer) 111.0 10/14/19 06:29 Est GFR (Non-Af Amer) 95.8 10/14/19 06:29 BUN/Creatinine Ratio 13.3 (10-20) 10/14/19 06:29 Glucose 186 mg/dl (70-99) H 10/14/19 06:29 Calcium 8.6 mg/dl (8.5-10.1) 10/14/19 06:29 Total Bilirubin 0.3 mg/dl (0.2-1) 10/14/19 06:29 AST 29 U/L (15-37) 10/14/19 06:29 ALT 33 U/L (12-78) 10/14/19 06:29 Alkaline Phosphatase 52 U/L (45-117) 10/14/19 06:29 Total Protein 7.1 gm/dl (6.4-8.2) 10/14/19 06:29 Albumin 2.5 gm/dl (3.4-5.0) L 10/14/19 06:29 Globulin 4.6 gm/dl (2.5-4.0) H 10/14/19 06:29 Albumin/Globulin Ratio 0.5 (0.9-2) L 10/14/19 06:29 Folate 15.80 ng/ml (>5.38) 10/13/19 15:22 Ethyl Alcohol mg/dL 50.0 mg/dl (0-3) H 10/13/19 15:22 Diagnostic Findings Name: BARBARA OSULLIVAN Acct: [id number] Status: [place]P [place] 1965 [facility] [place]: [place]13/[place] Age: 54 Sex: M Dis Date: Loc: Laboratory Specimen Drop Off Spec: [id number] Collected: 10/13/19-UNK Received: 10/13/198730 Subm Dr: Blane Goodwin M.D. Source: Elbow,Right OV Order: Ordered: Aer/Destinee Cult/Sm Comments: RIGHT ELBOW WOUND DEHISCENCE SWAB Procedure Result Verified Site Gram Stain Final 10/14/19 Gram Stain Result Many Polys Moderate Gram Positive Cocci Rare Gram Positive Bacilli Aero/Destinee Cult Preliminary 10/14/19 Organism 1 Staphylococcus aureus Quantity Moderate Sens Sensitivities to Follow
--- NOTE | 2019-10-14 17:23 | Hospitalist Progress Note ---
Date of Service October 14, 2019 Assessment & Plan (1) Rupture of right triceps tendon: (2) Post-operative infection: Patient is a 54 yr male with H/O Right triceps tendon rupture s/p post-op infection and washout, alcohol use disorder, HTN and anxiety who presents from outpatient orthopedic surgical center for IV antibiotic treatment. Wound dehiscence S/P ruptured biceps surgery by Dr. Goodwin on or rupture of right triceps in August S/P I&D POD#1 Planned for irrigation and debridement tomorrow Blood cultures: No growth to date Wound culture: Staph Continue IV vancomycin, Zosyn for now Appreciate orthopedics input Pain control (3) Alcohol use disorder: H/O Alcoholism with DTs in the past. Required intubation for airway protection during 2013 admission Serum alcohol level: 50 Continue Alcohol withdrawal protocol with gabapentin, Ativan PRN Continue Folate, thiamine Counseled to quit drinking (4) HTN (hypertension): BP slightly elevated Likely de to pain, in setting of possible withdrawal Continue metoprolol Hydralazine PRN (5) Anxiety: Continue SSRI and PRN ativan (6) History of lumbar surgery: Residual chronic left foot drop DVT Px: SCDs Re: Planned for procedure tmw Code status: FULL Disposition: Expect to discharge home when stable PCP: Dr.Manisha Lindo Subjective Patient is seen and examined at bedside Complains of Right elbow pain Anxious at times as per RN Denies any chest pain, SOB, dizziness, nausea, abd pain Offers no other complaints Review of Systems Review of Systems: All systems reviewed & are unremarkable except as noted in HPI & below Physical Exam Physical Exam: Physical Exam: Vitals signs as noted above General Appearance:Moderately built and nourished, no apparent distress Head: normocephalic, Atraumatic Eyes: normal inspection, EOMI Neck: supple, Trachea midline Respiratory/Chest: Normal breath sounds, CTA Cardiovascular: S1, S2, No murmur Abdomen/GI:Soft, Non tender, Bowel sounds present Extremities/Musculoskelatal:normal inspection, no edema, R elbow in dressing Neurologic/Psych:AAOX3, grossly no focal neurological deficits Skin: normal color, warm Results & Data Vital Signs (Past 12 Hours) Vital Signs Temp Pulse Pulse Resp BP Pulse Ox 10/14/19 16:13 36.5 C 71 18 158/85 H 97 10/14/19 12:00 74 01/01/20 11:26 36.6 C 75 18 145/78 H 97 10/14/19 08:00 74 10/14/19 07:40 36.5 C 72 18 176/100 H 95 Laboratory Results Short CBC 10/14/19 Range/Units 06:29 WBC 12.07 H (4.8-10.8) K/uL Hgb 10.4 L (14.0-18.0) g/dL Hct 30.9 L (42-52) % Plt Count 372 (130-400) K/uL BMP 10/14/19 06:29 Sodium 136 Potassium 4.5 Chloride 107 Carbon Dioxide 27 BUN 12 Creatinine 0.90 Glucose 186 H Calcium 8.6 Liver Function 10/14/19 Range/Units 06:29 Total Bilirubin 0.3 (0.2-1) mg/dl AST 29 (15-37) U/L ALT 33 (12-78) U/L Alkaline Phosphatase 52 (45-117) U/L Albumin 2.5 L (3.4-5.0) gm/dl
[2019-10-15] MEDS: GABAPENTIN 600 MG TAB PO SCH ×2 (05:37→16:52)
[2019-10-15] MEDS: PIPERACILLIN/TAZOBACTAM 3.375 GM in DEXTROSE 5% 100 ML IV SCH ×2 (05:38→17:08)
[2019-10-15] MEDS: VANCOMYCIN HCL 1,500 MG in SODIUM CHLORIDE 0.9% 500 ML IV SCH (05:39)
[2019-10-15 08:00] LABS: Basophils # (auto) 0.02 K/uL (0-0.2); Basophils % (auto) 0.2 %; Eosinophils # (auto) 0.01 K/uL (0-0.5); Eosinophils % (auto) 0.1 %; Hematocrit (blood only) 31.6 % (42-52); Hemoglobin 10.2 g/dL (14.0-18.0); Immature Granulocytes # (auto) 0.16 K/uL (0.00-0.02); Immature Granulocytes % (auto) 1.3 %; Lymphocytes # (auto) 1.51 K/uL (1.2-3.4); Lymphocytes % (auto) 12.7 %; Mean Corpuscular Hemoglobin 30.6 pg (25-34); Mean Corpuscular Hgb Conc 32.3 g/dL (32-36); Mean Corpuscular Volume 94.9 fL (80-100); Mean Platelet Volume 8.4 fL (7.4-10.4); Monocytes # (auto) 0.73 K/uL (0.11-0.59); Monocytes % (auto) 6.2 %; Neutrophils # (auto) 9.43 K/uL (1.4-6.5); Neutrophils % (auto) 79.5 %; Platelet Count 412 K/uL (130-400); RDW Coefficient of Variation 15.3 % (11.5-14.5); RDW Standard Deviation 52.5 fL (36.4-46.3); Red Blood Count 3.33 M/uL (4.7-6.1); White Blood Count 11.86 K/uL (4.8-10.8)
[2019-10-15 08:27] LABS: Albumin Level 2.5 gm/dl (3.4-5.0); BUN Creatinine Ratio 13.6 (10-20); Calcium 9.3 mg/dl (8.5-10.1); Creatinine Clr Calc Pharmacy 136.9 ml/min; Est GFR (African American) 120.4; Est GFR (Non-African American) 103.8; Potassium 4.3 mmol/L (3.5-5.1)
[2019-10-15 08:30] LABS: Albumin Globulin Ratio 0.6 (0.9-2); Bilirubin,Total 0.2 mg/dl (0.2-1); Globulin 4.5 gm/dl (2.5-4.0)
[2019-10-15] MEDS: CITALOPRAM 40 MG TAB PO SCH (08:56)
[2019-10-15] MEDS: ATORVASTATIN 10 MG TAB PO SCH (08:56)
[2019-10-15] MEDS: MULTIVITAMIN TAB PO SCH (08:56)
[2019-10-15] MEDS: FOLIC ACID 1 MG TAB PO SCH (08:57)
[2019-10-15] MEDS: HydrALAZINE 10 MG TAB PO PRN (08:57)
[2019-10-15] MEDS: OXYCODONE HCL IR 5 MG TAB (IMMEDIATE RELEASE) PO PRN ×2 (08:57→21:57)
[2019-10-15] MEDS: LORazepam 1 MG TAB PO PRN ×2 (08:57→21:58)
[2019-10-15] MEDS: THIAMINE HCL 100 MG TAB PO SCH (08:57)
[2019-10-15] MEDS: carvediloL 6.25 MG TAB PO SCH ×2 (09:28→22:00)
[2019-10-15] MEDS ORDERED: ONDANSETRON INJ 2 MG/ML 2 ML VIAL ONE (12:06)
[2019-10-15] MEDS ORDERED: PROPOFOL IV EMULSION 10 MG/ML 20 ML VIAL IV ONE (12:06)
[2019-10-15] MEDS ORDERED: LIDOCAINE HCL 2% 2 ML VIAL/AMP(20MG/ML) INFIL ONE (12:06)
[2019-10-15] MEDS ORDERED: DEXAMETHASONE SOD INJ 4 MG/ML VIAL ONE (12:06)
[2019-10-15] MEDS ORDERED: fentaNYL citrate 100 MCG/2 ML VIAL ONE ×2 (12:07→14:42)
[2019-10-15] MEDS ORDERED: MIDAZOLAM HCL 1 MG/ML 2ML VIAL ONE ×3 (12:07→15:06)
--- NOTE | 2019-10-15 12:50 | Anesthesiology Consultation ---
Date of Service October 15, 2019 Assessment & Plan ASA ASA3 Proposed Anesthesia Anesthesia Type: General Risk / Benefits Reviewed With: PT / POA / Parent / Guardian, Accepts Plan and Informed Consent Obtained History Surgery Operation Date: 10/15/19 07:30 Proposed Procedures p Right Elbow Incision and Drainage - Blane Goodwin M.D. Height/Weight Height: 5 ft 11 in Weight: 101.6 kg Allergies Allergy/AdvReac Type Severity Reaction Status Date / Time lisinopril Allergy Severe ANGIOEDEMA Verified 09/17/19 09:56 Medications Home Medications Medication Instructions Recorded Confirmed Last Taken atorvastatin 10 mg PO QAM 04/26/19 10/13/19 09/17/19 06:00 hydrochlorothiazide 12.5 mg PO QAM 04/26/19 10/13/19 09/16/19 07:00 lorazepam 1 mg PO BID PRN 04/26/19 10/13/19 09/16/19 21:00 metoprolol succinate 25 mg PO BID 04/26/19 10/13/19 09/17/19 06:00 multivitamin 1 tab PO QAM 04/26/19 10/13/19 09/16/19 07:00 omega 2-kym-[id number]-fish oil [Fish Oil] 1 cap PO QAM 04/26/19 10/13/19 09/16/19 07:00 albuterol sulfate 90 mcg INHALATION Q6H PRN 09/14/19 10/13/19 09/14/19 citalopram 40 mg PO QAM 09/14/19 10/13/19 09/16/19 12:00 gabapentin 100 mg PO DAILY 09/14/19 10/13/19 09/17/19 06:00 milk thistle 150 mg PO QAM 09/14/19 10/13/19 09/16/19 07:00 Active Medications Generic Name Dose Route Start Last Admin Trade Name Freq PRN Reason Stop Dose Admin Atorvastatin Calcium 10 mg 10/14/19 09:00 10/15/19 08:56 Lipitor PO 11/13/19 08:59 10 mg QAM ALYSE Administration Carvedilol 6.25 mg 10/15/19 09:00 10/15/19 09:28 Coreg PO 11/14/19 08:59 6.25 mg BID ALYSE Administration Citalopram Hydrobromide 40 mg 10/14/19 09:00 10/15/19 08:56 Celexa PO 11/13/19 08:59 40 mg QAM ALYSE Administration Folic Acid 1 mg 10/14/19 09:00 10/15/19 08:57 Folvite PO 11/13/19 08:59 1 mg QAM ALYSE Administration Piperacillin Sod/Tazobactam 115 mls @ 28.75 mls/hr 10/13/19 22:00 10/15/19 09:38 Sod 3.375 gm/ Dextrose IV 11/24/19 21:59 Infused Q8H ALYSE Infusion Protocol Vancomycin HCl 1,500 mg/ 530 mls @ 200 mls/hr 10/14/19 06:00 10/15/19 08:18 Sodium Chloride IV 11/25/19 05:59 Infused Q12H ALYSE Infusion Protocol Ibuprofen 200 mg 10/13/19 21:15 10/13/19 21:40 Advil PO 11/12/19 21:14 200 mg Q6H PRN Administration Mild Pain Ketorolac Tromethamine 15 mg 10/13/19 21:15 10/13/19 21:40 Toradol IV 10/18/19 21:14 15 mg Q6H PRN Administration Pain Lorazepam 1 mg 10/13/19 16:16 10/15/19 08:57 Ativan PO 11/12/19 16:15 1 mg BID PRN Administration Anxiety Multivitamins 1 tab 10/14/19 09:00 10/15/19 08:56 Multivitamin Tab PO 11/13/19 08:59 1 tab QAM ALYSE Administration Oxycodone HCl 5 mg 10/13/19 16:13 10/15/19 08:57 Roxicodone Immediate Rel PO 10/27/19 16:12 5 mg Q6H PRN Administration Pain Polyethylene Glycol 17 gm 10/13/19 14:16 10/14/19 08:07 Miralax Powder Packet PO 11/12/19 14:15 17 gm DAILY PRN Administration Constipation Thiamine HCl 100 mg 10/14/19 09:00 10/15/19 08:57 Vitamin B-1 PO 11/13/19 08:59 100 mg QAM ALYSE Administration NPO Date Last Intake of Fluids: 10/14/19 Time Last Intake of Fluids: 23:59 Last Intake of Fluids Comment: sip of water with meds Date Last Intake of Solids: 10/14/19 Time Last Intake of Solids: 23:59 Past Medical History Medical History Alcohol use disorder Anxiety (Chronic) Diverticulitis (Resolved) hx of HTN (hypertension) (Chronic) Rupture of right triceps tendon (Acute) Seasonal allergies inhaler PRN listed on medications/no hx asthma/copd noted per RN phone assessment Exercise / Class Metabolic Activity II 4-5 Yardwork/Stairs/Walk up hill Past Family History Family History Father Stroke AAA (abdominal aortic aneurysm) Smoker Mother Coronary heart disease Hypertension Smoker Uncle Prostate cancer Diverticulitis Past Surgical History Surgical History History of lumbar surgery (Chronic) L4-L5 decompression, residual drop left foot History of tonsillectomy (Chronic) Hx of colonoscopy Hx of lumbar discectomy x2 S/P partial colectomy (Resolved) Left colon resection S/P tendon repair Past Anesthesia History No Hx of Anesthesia Complications and No Family Hx of Anesthesia Complications History of PONV No Hx of PONV and No Hx of Motion Sickness Social History Smoking Status: Former smoker tobacco type: cigarettes Hx Alcohol Use: Yes Alcohol type: beer alcohol intake frequency: 3 or more drinks per day Alcohol Intake Frequency Comment: 6 pack beer day/ hx alcohol abuse Hx Substance Use: No substance use type: does not use Review of Systems denies fever/cough/ colds/ chest pain/ SOB/ GUZMAN Constitutional: no fever and no chills Respiratory: no cough and no dyspnea denies GUZMAN Cardiovascular: no chest pain and no dyspnea on exertion Physical Exam Vital Signs Last Vital Signs Temp 36.7 C 10/15/19 12:21 Pulse 82 10/15/19 12:21 Resp 16 10/15/19 12:21 BP 158/102 H 10/15/19 12:21 Pulse Ox 94 10/15/19 12:21 ENMT Mouth: + dentition abnormality (Multiple missing); no TMJ abnormality Thyromental Distance: > or= 3.5 Finger Breadths Mallampati Class: II Neck neck extension not limited Respiratory normal respiratory effort; no respiratory distress Auscultation: lungs clear to auscultation bilaterally Cardiovascular Rate/Rhythm: regular rate and regular rhythm Neurologic moves all extremities Psychiatric Orientation: alert and oriented x 3 Testing Laboratory Results 10/15/19 07:40 10/15/19 07:40 10/13/19 15:32 Aerobic Blood Culture - Preliminary Blood No growth in Aerobic bottle after 24 hours. Anaerobic Blood Culture - Preliminary No growth in Anaerobic bottle after 24 hours. 10/13/19 15:22 Aerobic Blood Culture - Preliminary Blood No growth in Aerobic bottle after 24 hours. Anaerobic Blood Culture - Preliminary No growth in Anaerobic bottle after 24 hours.
[2019-10-15] MEDS ORDERED: ePHEDrine sulfate 50 MG/ML AMP IV PRN (12:54)
[2019-10-15] MEDS ORDERED: fentaNYL citrate 100 MCG/2 ML VIAL IV PRN (12:54)
[2019-10-15] MEDS ORDERED: HYDROmorphone INJ 2 MG/ML SYR/VIAL IV PRN (12:54)
[2019-10-15] MEDS ORDERED: ATROPINE SULFATE 0.1 MG/ML 10ML SYR IV PRN (12:54)
--- NOTE | 2019-10-15 13:46 | History & Physical Bridge Note ---
Date of Service October 15, 2019 History & Physical Bridge Note I have examined the patient, reviewed the History & Physical and in the interval since the performance of the History & Physical I have noted the following changes of clinical significance: no changes noted
--- NOTE | 2019-10-15 15:17 | Post Operative Brief Note ---
Immediate Post Op Note v1 Date of Surgery October 15, 2019 Pre & Post Diagnosis Operation Date: 10/15/19 07:30 Pre-Op Diagnosis: POST OP INFECTION Post-Op Diagnosis: POST OP INFECTION I identified the patient and participated in the time-out.: Yes Procedure Operation Date: 10/15/19 07:30 Actual Procedures p Right Elbow Incision and Drainage(Right) - Blane Goodwni M.D. Surgeon Blane Goodwin C[employer]ing And Events Manager None Estimated Blood Loss 30 Findings Consistent with Post-Op Diagnosis Drains Hemovac Drain
--- NOTE | 2019-10-15 15:27 | Operative Report ---
Post Operative Report Pre & Post Diagnosis Operation Date: 10/15/19 07:30 Pre-Op Diagnosis: Right elbow postoperative infection Post-Op Diagnosis: Right elbow postoperative infection I identified the patient and participated in the time-out.: Yes Procedure Operation Date: 10/15/19 07:30 Actual Procedures Right Elbow Irrigation and debridement of skin, subcutaneous tissue, triceps tendon, and bone, approximately 30 cm ([id number]) - Blane Goodwin M.D. Surgeon Blane Goodwin Managing Jeweler None Estimated Blood Loss 30 Findings Consistent with Post-Op Diagnosis Hematoma, but no gross purulence Specimens None Drains Medium Hemovac Anesthesia Type General Complications none Disposition Disposition: Recovery Room Indications Mr. Pradhan is a 54-year-old male who has a right elbow postoperative infection. He had just underwent irrigation and debridement surgery 2 days ago at the outpatient surgery center. There was gross purulence and an extensive infection. I recommended admission to the hospital for IV antibiotics and repeat irrigation and debridement surgery. Risks, benefits, and alternatives of surgery were explained in detail. The patient understood all this and wished to proceed. Description of Procedure Patient was identified in the preoperative holding area. Operative extremity was marked. Patient was then brought back to the operating room, and general anesthesia was induced without complication. He is currently receiving vancomycin and Zosyn scheduled, and therefore no additional antibiotics were given. Tourniquet was placed on the right upper arm, but was not inflated during the procedure. He was then turned into the lateral decubitus position with the right arm up. Arm was then prepped and draped in a standard sterile fashion using Betadine prep. Previous sutures were removed, and the posterior elbow incision was reopened. There was a fairly significant amount of hematoma within the wound, but no gross purulence was seen. The edema and induration of his skin and arm in general were markedly improved compared to 2 days ago. There was no longer any foul odor to the wound. It overall appeared much better than it did 2 days ago. I then debrided skin, subcutaneous tissue, tendon tissue, and bone, but tried not to induce too much bleeding. The wound measured approximately 15 cm in length and about 2 cm in width. There was some generalized oozing after debridement, and larger bleeders were coagulated with Bovie electrocautery. His INR was elevated at 1.4, presumably due to his alcoholic cirrhosis. After debridement was completed, I then copiously irrigated the wound with 6 L of sterile saline via gravity irrigation. Medium Hemovac was then inserted along the wound and sewn in place proximally. The wound was then closed with 3-0 nylon suture. Sterile dressings were then applied with Xeroform, sterile gauze, ABD pads, sterile Webril, and . Cooling compression sleeve was then applied. The drapes were removed, the patient was awakened from anesthesia, and taken to the Post Anesthesia Care Unit in stable condition. There were no immediate complications from the procedure. I was present and scrubbed for the entire procedure. I attest to the content of the Intraoperative Record and any orders documented therein. Any exceptions are noted below.
--- NOTE | 2019-10-15 15:32 | Hospitalist Progress Note ---
Date of Service October 15, 2019 Assessment & Plan (1) Rupture of right triceps tendon: (2) Post-operative infection: Patient is a 54 yr male with H/O Right triceps tendon rupture s/p post-op infection and washout, alcohol use disorder, HTN and anxiety who presents from outpatient orthopedic surgical center for IV antibiotic treatment. Wound Dehiscence S/P ruptured biceps surgery by Dr. Goodwin on or rupture of right triceps in August S/P I&D POD # 2 S/P repeat Procedure on 10/15/19 Blood cultures: No growth to date Wound culture: Staph. aureus Continue IV vancomycin, Zosyn for now Appreciate orthopedics input Pain control Continue Wound Care Hyperglycemia Check Hb A1C to R/O DM (3) Alcohol use disorder: H/O Alcoholism with DTs in the past. Required intubation for airway protection during 2013 admission Serum alcohol level: 50 Continue Alcohol withdrawal protocol with gabapentin, Ativan PRN Continue Folate, thiamine Counseled to quit drinking (4) HTN (hypertension): BP elevated Likely de to pain, in setting of possible withdrawal Changed metoprolol to Coreg Resume HCTZ in AM Hydralazine PRN (5) Anxiety: Continue SSRI and PRN ativan (6) History of lumbar surgery: Residual chronic left foot drop DVT Px: SCDs for now Code status: Full Code Disposition: Expect to discharge home when stable PCP: Dr.Manisha Lindo Subjective Patient is seen and examined at bedside States Right elbow pain is better today No new complaints Planned for wound debridement today Denies any chest pain, SOB, dizziness, nausea, abd pain No signs of alcohol withdrawal Offers no other complaints Review of Systems Review of Systems: All systems reviewed & are unremarkable except as noted in HPI & below Physical Exam Physical Exam: Physical Exam: Vitals signs as noted above General Appearance:Moderately built and nourished, no apparent distress Head: normocephalic, Atraumatic Eyes: normal inspection, EOMI Neck: supple, Trachea midline Respiratory/Chest: Normal breath sounds, CTA Cardiovascular: S1, S2, No murmur Abdomen/GI:Soft, Non tender, Bowel sounds present Extremities/Musculoskelatal:normal inspection, no edema, R elbow in dressing Neurologic/Psych:AAOX3, grossly no focal neurological deficits Skin: normal color, warm Results & Data Vital Signs (Past 12 Hours) Vital Signs Temp Pulse Pulse Pulse Resp BP Pulse Ox 10/15/19 12:21 36.7 C 82 16 158/102 H 94 10/15/19 12:00 36.8 C 87 20 166/101 H 94 10/15/19 09:00 61 10/15/19 08:00 36.9 C 72 18 168/99 H 92 10/15/19 04:00 36.8 C 69 18 170/100 H 97 Laboratory Results Short CBC 10/15/19 Range/Units 07:40 WBC 11.86 H (4.8-10.8) K/uL Hgb 10.2 L (14.0-18.0) g/dL Hct 31.6 L (42-52) % Plt Count 412 H (130-400) K/uL BMP 10/15/19 07:40 Sodium 138 Potassium 4.3 Chloride 106 Carbon Dioxide 26 BUN 10 Creatinine 0.74 Glucose 127 H Calcium 9.3 Liver Function 10/15/19 Range/Units 07:40 Total Bilirubin 0.2 (0.2-1) mg/dl AST 25 (15-37) U/L ALT 32 (12-78) U/L Alkaline Phosphatase 48 (45-117) U/L Albumin 2.5 L (3.4-5.0) gm/dl
--- NOTE | 2019-10-15 15:40 | Anesthesiology Progress Note ---
Date of Service October 15, 2019 Anesthesia Post Procedure Vital Signs Vital Signs: Temp Pulse Pulse Pulse Resp BP Pulse Ox 10/15/19 15:30 70 12 155/102 H 94 10/15/19 15:20 69 12 148/103 H 94 10/15/19 15:10 36.6 C 77 12 144/100 H 94 10/15/19 12:21 36.7 C 82 16 158/102 H 94 10/15/19 12:00 36.8 C 87 20 166/101 H 94 10/15/19 09:00 61 10/15/19 08:00 36.9 C 72 18 168/99 H 92 10/15/19 04:00 36.8 C 69 18 170/100 H 97 10/15/19 00:00 36.6 C 77 18 157/86 H 96 10/14/19 16:13 36.5 C 71 18 158/85 H 97 Pain Intensity Right Elbow: Pain Intensity: 7 Transfer of Care Handoff Completed per policy Notes Mental Status: alert / awake / arousable and participated in evaluation Patient Amnestic to Procedure: Yes Nausea / Vomiting: adequately controlled Pain: adequately controlled Airway Patency, RR, SpO2: stable & adequate BP & HR: stable & adequate Hydration State: stable & adequate Anesthetic Complications: no major complications apparent and Pt Satisfied with anesthetic care
[2019-10-15] MEDS: CEFAZOLIN 2000MG 2,000 MG/15 ML SYR IV SCH (16:51)
[2019-10-15] MEDS ORDERED: VANCOMYCIN TROUGH ONE (17:30)
[2019-10-15] MEDS: KETOROLAC TROMETHAMINE 15 MG/ML VIAL IV PRN (23:58)
[2019-10-16] MEDS: OXYCODONE HCL IR 5 MG TAB (IMMEDIATE RELEASE) PO PRN (05:32)
[2019-10-16] MEDS: POLYETHYLENE (MIRALAX) 17 GM PACK PO PRN (05:32)
[2019-10-16] MEDS: GABAPENTIN 600 MG TAB PO SCH (05:33)
[2019-10-16] MEDS: HydrALAZINE 10 MG TAB PO PRN (05:55)
[2019-10-16 06:48] LABS: Basophils # (auto) 0.01 K/uL (0-0.2); Basophils % (auto) 0.1 %; Hematocrit (blood only) 32.1 % (42-52); Hemoglobin 10.6 g/dL (14.0-18.0); Immature Granulocytes % (auto) 0.9 %; Lymphocytes # (auto) 0.92 K/uL (1.2-3.4); Lymphocytes % (auto) 8.3 %; Mean Corpuscular Hemoglobin 30.9 pg (25-34); Mean Corpuscular Volume 93.6 fL (80-100); Mean Platelet Volume 8.7 fL (7.4-10.4); Monocytes # (auto) 0.42 K/uL (0.11-0.59); Monocytes % (auto) 3.8 %; Neutrophils # (auto) 9.69 K/uL (1.4-6.5); Neutrophils % (auto) 86.9 %; Platelet Count 412 K/uL (130-400); RDW Coefficient of Variation 15.3 % (11.5-14.5); RDW Standard Deviation 52.6 fL (36.4-46.3); Red Blood Count 3.43 M/uL (4.7-6.1); White Blood Count 11.14 K/uL (4.8-10.8)
[2019-10-16 07:16] LABS: Estimated Average Glucose 120 mg/dl; Hemoglobin A1C 5.8 % (4.5-5.6)
[2019-10-16 07:18] LABS: BUN Creatinine Ratio 14.7 (10-20); Creatinine Clr Calc Pharmacy 104.9 ml/min; Est GFR (African American) 102.7; Est GFR (Non-African American) 88.6; Potassium 4.6 mmol/L (3.5-5.1)
[2019-10-16] MEDS: hydroCHLOROthiazide 25 MG TAB PO SCH (07:28)
[2019-10-16] MEDS: FOLIC ACID 1 MG TAB PO SCH (07:29)
[2019-10-16] MEDS: THIAMINE HCL 100 MG TAB PO SCH (07:30)
[2019-10-16] MEDS: KETOROLAC TROMETHAMINE 15 MG/ML VIAL IV PRN (07:31)
[2019-10-16] MEDS: ATORVASTATIN 10 MG TAB PO SCH (07:31)
[2019-10-16] MEDS: CITALOPRAM 40 MG TAB PO SCH (07:31)
[2019-10-16] MEDS: MULTIVITAMIN TAB PO SCH (07:31)
[2019-10-16] MEDS: carvediloL 6.25 MG TAB PO SCH (07:31)
[2019-10-16] MEDS ORDERED: HydrALAZINE HCL 20 MG/ML VIAL IV PRN (08:08)
[2019-10-16] MEDS ORDERED: carvediloL 6.25 MG TAB PO ONE (08:30)
[2019-10-16] MEDS ORDERED: AMLODIPINE BESYLATE 5 MG TAB PO SCH (09:00)
[2019-10-16] MEDS: CEFAZOLIN 2000MG 2,000 MG/15 ML SYR IV SCH ×3 (09:03→17:16)
--- NOTE | 2019-10-16 18:55 | Orthopedic Progress Note ---
Date of Service October 16, 2019 Assessment & Plan (1) Wound dehiscence: POD #1 s/p Right Elbow Irrigation and debridement of skin, subcutaneous tissue, triceps tendon, and bone, approximately 30 cm Continue IV Ancef per medicine--will require 2-4 weeks of IV antibiotics. PICC line placed today. Dressing kept in place today. Plan for dressing change and removal of hemovac tomorrow AM. D/C planning--once IV antibiotics are set up for home and home nursing/teach of antibiotic dosing is set up, the patient will probably be able to be discharged, possibly tomorrow. Subjective Right elbow pain is controlled. No complaints today. States he was being taught how to flush the PICC line that was placed earlier today. Denies CP, SOB, LH. Physical Exam Constitutional: WD/WN, vitals as above no acute distress Musculoskeletal: Right elbow: MIRIAM bandage dressing C/D/I. Hemovac in place with minimal drainage. NV intact RUE. Psychiatric: A+Ox3, euthymic affect Results & Data Vital Signs (Past 12 Hours) Vital Signs Temp Pulse Pulse Resp BP Pulse Ox 10/16/19 16:00 76 10/16/19 15:45 36.8 C 79 18 178/90 H 93 10/16/19 12:00 36.6 C 75 20 163/88 H 95 10/16/19 08:00 71 10/16/19 07:11 36.8 C 76 18 178/110 H 97 Laboratory Results Spec: [id number] Collected: 10/13/19-UNK Received: 10/13/19-5253 [facility] Dr: Blane Goodwin M.D. Source: Elbow,Right OV Order: Ordered: Aer/Destinee Cult/Sm Comments: RIGHT ELBOW WOUND DEHISCENCE SWAB Procedure Result Verified Site Gram Stain Final 10/14/19 Gram Stain Result Many Polys Moderate Gram Positive Cocci Rare Gram Positive Bacilli Aero/Destinee Cult Preliminary 10/16/19-1222 Organism 1 Staphylococcus aureus Quantity Moderate Sens Sensitivities to Follow +MixWound Plus Low Counts of Probable Skin [place] S aureus RX M.I.C. --- --------- Clindamycin S <=0.5 Daptomycin S 1 Erythromycin S <=0.5 Oxacillin S 0.5 Tetracycline S <=4 Trimeth/Sulfa S <=0.5/9.5 Vancomycin S 2 S = SENSITIVE I = INTERMEDIATE R = RESISTANT
--- NOTE | 2019-10-16 19:12 | Hospitalist Progress Note ---
Date of Service October 16, 2019 Assessment & Plan (1) Rupture of right triceps tendon: (2) Post-operative infection: Patient is a 54 yr male with H/O Right triceps tendon rupture s/p post-op infection and washout, alcohol use disorder, HTN and anxiety who presents from outpatient orthopedic surgical center for IV antibiotic treatment. Wound Dehiscence S/P ruptured biceps surgery by Dr. Goodwin on or rupture of right triceps in August S/P I&D POD # 3 S/P repeat Procedure on 10/15/19 Blood cultures: No growth to date Wound culture: Staph. aureus (MSSA) Continue IV vancomycin, Zosyn transitioned to IV Ancef Discussed with Infectious Disease in [facility] on 10/15/19 Needs to complete IV antibiotic course for 4 weeks Appreciate orthopedics input Pain control Continue Wound Care Case management for discharge planning Prediabetes Hb A1C:5.8 Monitor (3) Alcohol use disorder: H/O Alcoholism with DTs in the past. Required intubation for airway protection during 2013 admission Serum alcohol level: 50 Continue Alcohol withdrawal protocol with gabapentin, Ativan PRN Continue Folate, thiamine Counseled to quit drinking (4) HTN (hypertension): BP elevated Likely de to pain, in setting of possible withdrawal Changed metoprolol to Coreg Resume HCTZ in AM Hydralazine PRN (5) Anxiety: Continue SSRI and PRN ativan (6) History of lumbar surgery: Residual chronic left foot drop DVT Px: SCDs for now Code status: Full Code Disposition: Expect to discharge home when stable PCP: Dr.Manisha Lindo Subjective Patient is seen and examined at bedside Right elbow pain is controlled Midline placement today Denies any chest pain, SOB, dizziness, nausea, abd pain No signs of alcohol withdrawal Review of Systems Review of Systems: All systems reviewed & are unremarkable except as noted in HPI & below Physical Exam Physical Exam: Physical Exam: Vitals signs as noted above General Appearance:Moderately built and nourished, no apparent distress Head: normocephalic, Atraumatic Eyes: normal inspection, EOMI Neck: supple, Trachea midline Respiratory/Chest: Normal breath sounds, CTA Cardiovascular: S1, S2, No murmur Abdomen/GI:Soft, Non tender, Bowel sounds present Extremities/Musculoskelatal:normal inspection, no edema, R elbow in dressing, +Hemovac Neurologic/Psych:AAOX3, grossly no focal neurological deficits Skin: normal color, warm Results & Data Vital Signs (Past 12 Hours) Vital Signs Temp Pulse Pulse Resp BP Pulse Ox 10/16/19 19:03 36.8 C 72 18 180/97 H 95 10/16/19 16:00 76 10/16/19 15:45 36.8 C 79 18 178/90 H 93 10/16/19 12:00 36.6 C 75 20 163/88 H 95 10/16/19 08:00 71 10/16/19 07:11 36.8 C 76 18 178/110 H 97 Laboratory Results Short CBC 10/16/19 Range/Units 06:36 WBC 11.14 H (4.8-10.8) K/uL Hgb 10.6 L (14.0-18.0) g/dL Hct 32.1 L (42-52) % Plt Count 412 H (130-400) K/uL BMP 10/16/19 06:36 Sodium 134 L Potassium 4.6 Chloride 101 Carbon Dioxide 29 BUN 14 Creatinine 0.96 Glucose 273 H Calcium 9.0
[2019-10-16] MEDS: LORazepam 1 MG TAB PO PRN (19:53)
[2019-10-16] MEDS ORDERED: carvediloL 12.5 MG TAB PO SCH (21:00)
[2019-10-17] MEDS: CEFAZOLIN 2000MG 2,000 MG/15 ML SYR IV SCH ×3 (02:02→17:11)
[2019-10-17] MEDS ORDERED: GABAPENTIN 600 MG TAB PO SCH (06:00)
[2019-10-17] MEDS: LORazepam 1 MG TAB PO PRN (06:19)
[2019-10-17 06:36] LABS: Basophils # (auto) 0.02 K/uL (0-0.2); Basophils % (auto) 0.2 %; Eosinophils # (auto) 0.01 K/uL (0-0.5); Eosinophils % (auto) 0.1 %; Hematocrit (blood only) 34.8 % (42-52); Hemoglobin 11.7 g/dL (14.0-18.0); Immature Granulocytes # (auto) 0.15 K/uL (0.00-0.02); Immature Granulocytes % (auto) 1.3 %; Lymphocytes % (auto) 18.8 %; Mean Corpuscular Hemoglobin 30.9 pg (25-34); Mean Corpuscular Hgb Conc 33.6 g/dL (32-36); Mean Corpuscular Volume 91.8 fL (80-100); Mean Platelet Volume 8.8 fL (7.4-10.4); Monocytes # (auto) 0.73 K/uL (0.11-0.59); Monocytes % (auto) 6.5 %; Neutrophils # (auto) 8.19 K/uL (1.4-6.5); Neutrophils % (auto) 73.1 %; Platelet Count 489 K/uL (130-400); RDW Coefficient of Variation 14.9 % (11.5-14.5); RDW Standard Deviation 49.9 fL (36.4-46.3); Red Blood Count 3.79 M/uL (4.7-6.1)
--- NOTE | 2019-10-17 06:37 | Communication Note ---
Date of Service: October 17, 2019 Made aware by RN of uncontrolled blood pressure. SBP 150-190s the last 24 hours. Cardiac rate 60s Patient asymptomatic as per RN. AP Hypertensive urgency Continue Coreg at current dose Increase amlodipine from 5 to 10 mg daily. Will relay to AM provider.
[2019-10-17] MEDS ORDERED: AMLODIPINE BESYLATE 5 MG TAB PO SCH (06:45)
[2019-10-17 07:09] LABS: BUN Creatinine Ratio 16.5 (10-20); Calcium 10.2 mg/dl (8.5-10.1); Creatinine Clr Calc Pharmacy 132.3 ml/min; Est GFR (African American) 119.7; Est GFR (Non-African American) 103.3; Magnesium 1.8 mg/dl (1.8-2.4); Potassium 4.1 mmol/L (3.5-5.1)
[2019-10-17] MEDS: ATORVASTATIN 10 MG TAB PO SCH (09:23)
[2019-10-17] MEDS: CITALOPRAM 40 MG TAB PO SCH (09:23)
[2019-10-17] MEDS: MULTIVITAMIN TAB PO SCH (09:23)
[2019-10-17] MEDS: carvediloL 12.5 MG TAB PO SCH ×2 (09:23→20:47)
[2019-10-17] MEDS: FOLIC ACID 1 MG TAB PO SCH (09:23)
[2019-10-17] MEDS: THIAMINE HCL 100 MG TAB PO SCH (09:23)
[2019-10-17] MEDS: hydroCHLOROthiazide 25 MG TAB PO SCH (09:44)
[2019-10-17] MEDS: AMLODIPINE BESYLATE 5 MG TAB PO SCH (09:59)
--- NOTE | 2019-10-17 10:54 | Progress Note ---
DATE: 10/17/2019 SUBJECTIVE: Ho is postop day #2 status post repeat irrigation and debridement of right elbow. He is doing well. Notes no new complaints. He states swelling has decreased. OBJECTIVE: Right elbow examination, dressing is clean and dry. Hemovac does show clotted blood. Hand is warm and well perfused. He can flex and extend the elbow to a limited degree. ASSESSMENT: Postoperative day #2 status post repeat irrigation and debridement of right elbow. PLAN: At this point in time, he does exhibit subjective improvement. We will discontinue Hemovac today. Change dressing in the afternoon. We will inspect the wound and incision tomorrow. I do not anticipate further orthopedic surgical treatment at this point in time. We will continue antibiotics, Ancef, for MSSA.
--- NOTE | 2019-10-17 18:40 | Hospitalist Progress Note ---
Date of Service October 17, 2019 Assessment & Plan (1) Rupture of right triceps tendon: (2) Post-operative infection: Patient is a 54 yr male with H/O Right triceps tendon rupture s/p post-op infection and washout, alcohol use disorder, HTN and anxiety who presents from outpatient orthopedic surgical center for IV antibiotic treatment. Wound Dehiscence S/P ruptured biceps surgery by Dr. Goodwin on or rupture of right triceps in August S/P I&D POD # 4 S/P repeat Procedure on 10/15/19 Blood cultures: No growth to date Wound culture: Staph. aureus (MSSA), Finegoldia magna Continue IV vancomycin, Zosyn transitioned to IV Ancef Discussed with Infectious Disease in [facility] on 10/15/19 Needs to complete IV antibiotic course for 4 weeks Appreciate orthopedics input Pain control, wound care Case management for discharge planning Continue current management Prediabetes Hb A1C:5.8 Monitor (3) Alcohol use disorder: H/O Alcoholism with DTs in the past. Required intubation for airway protection during 2013 admission Serum alcohol level: 50 Continue Alcohol withdrawal protocol with gabapentin, Ativan PRN Continue Folate, thiamine Counseled to quit drinking (4) HTN (hypertension): BP elevated Likely de to pain, in setting of possible withdrawal Changed metoprolol to Coreg 12.5 mg twice daily Amlodipine dose increased to 10 mg daily HCTZ increased to 25 mg daily Hydralazine PRN (5) Anxiety: Continue SSRI and PRN ativan (6) History of lumbar surgery: Residual chronic left foot drop DVT Px: Heparin SQ Code status: Full Code Disposition: Plan to discharge once cleared by orthopedics, IV antibiotics arranged PCP: Dr.Manisha Lindo Subjective Patient is seen and examined at bedside Hemovac removed, dressing change Right elbow pain is controlled No new complaints Midline placed yesterday Denies any chest pain, SOB, dizziness, nausea, abd pain Review of Systems Review of Systems: All systems reviewed & are unremarkable except as noted in HPI & below Physical Exam Physical Exam: Physical Exam: Vitals signs as noted above General Appearance:Moderately built and nourished, no apparent distress Head: normocephalic, Atraumatic Eyes: normal inspection, EOMI Neck: supple, Trachea midline Respiratory/Chest: Normal breath sounds, CTA Cardiovascular: S1, S2, No murmur Abdomen/GI:Soft, Non tender, Bowel sounds present Extremities/Musculoskelatal:normal inspection, no edema, R elbow in dressing Neurologic/Psych:AAOX3, grossly no focal neurological deficits Skin: normal color, warm Results & Data Vital Signs (Past 12 Hours) Vital Signs Temp Pulse Resp BP Pulse Ox 10/17/19 18:22 37.0 C 67 18 153/61 H 96 10/17/19 15:40 37.0 C 82 18 141/65 H 95 10/17/19 12:02 37.2 C 62 16 147/70 H 96 10/17/19 07:00 36.6 C 69 18 166/96 H 96 Laboratory Results Short CBC 10/17/19 Range/Units 06:07 WBC 11.20 H (4.8-10.8) K/uL Hgb 11.7 L (14.0-18.0) g/dL Hct 34.8 L (42-52) % Plt Count 489 H (130-400) K/uL BMP 10/17/19 06:07 Sodium 136 Potassium 4.1 Chloride 102 Carbon Dioxide 28 BUN 12 Creatinine 0.75 Glucose 101 H Calcium 10.2 H
[2019-10-17] MEDS: POLYETHYLENE (MIRALAX) 17 GM PACK PO PRN (20:46)
[2019-10-17] MEDS: OXYCODONE HCL IR 5 MG TAB (IMMEDIATE RELEASE) PO PRN (20:46)
[2019-10-17] MEDS: HEPARIN SOD 5,000 UNIT/0.5 ML VIAL SQ SCH (20:47)
[2019-10-18] MEDS: CEFAZOLIN 2000MG 2,000 MG/15 ML SYR IV SCH ×3 (02:20→16:39)
[2019-10-18 07:15] LABS: Basophils # (auto) 0.03 K/uL (0-0.2); Basophils % (auto) 0.2 %; Eosinophils # (auto) 0.14 K/uL (0-0.5); Eosinophils % (auto) 1.1 %; Hematocrit (blood only) 35.4 % (42-52); Hemoglobin 11.7 g/dL (14.0-18.0); Immature Granulocytes # (auto) 0.26 K/uL (0.00-0.02); Lymphocytes # (auto) 2.72 K/uL (1.2-3.4); Lymphocytes % (auto) 20.8 %; Mean Corpuscular Hemoglobin 31.1 pg (25-34); Mean Corpuscular Hgb Conc 33.1 g/dL (32-36); Mean Corpuscular Volume 94.1 fL (80-100); Mean Platelet Volume 8.6 fL (7.4-10.4); Monocytes # (auto) 1.03 K/uL (0.11-0.59); Monocytes % (auto) 7.9 %; Neutrophils # (auto) 8.89 K/uL (1.4-6.5); Platelet Count 543 K/uL (130-400); RDW Coefficient of Variation 15.1 % (11.5-14.5); RDW Standard Deviation 51.4 fL (36.4-46.3); Red Blood Count 3.76 M/uL (4.7-6.1); White Blood Count 13.07 K/uL (4.8-10.8)
[2019-10-18 07:37] LABS: BUN Creatinine Ratio 25.6 (10-20); Calcium 9.9 mg/dl (8.5-10.1); Est GFR (African American) 113.7; Est GFR (Non-African American) 98.1; Potassium 4.3 mmol/L (3.5-5.1)
--- NOTE | 2019-10-18 08:03 | Orthopedic Progress Note ---
Date of Service October 18, 2019 Assessment & Plan (1) Wound dehiscence: POD #3 s/p repeat Right Elbow Irrigation and debridement of skin, subcutaneous tissue, triceps tendon, and bone Wound culture: Staph. aureus (MSSA), Finegoldia magna Pain Control, currently doing well patient has midline in, will need at least 4 weeks of Abx. there is discussion of switching his Abx to easier dosing, primary team to discuss with ID. continue with daily dressing changes. Subjective POD #3 Right Elbow Irrigation and debridement of skin, subcutaneous tissue, triceps tendon, and bone Review of Systems Review of Systems: All systems reviewed & are unremarkable except as noted in HPI & below Constitutional: no fever and no chills Respiratory: no cough Cardiovascular: no chest pain and no dyspnea Gastrointestinal: no nausea and no vomiting Physical Exam Physical Exam: Vital Signs Temp Pulse Pulse Resp BP Pulse Ox 10/18/19 07:49 36.6 C 75 18 135/86 98 10/18/19 02:31 36.6 C 73 18 136/84 96 10/18/19 00:00 36.7 C 70 71 18 148/77 H 97 10/17/19 18:22 37.0 C 67 18 153/61 H 96 10/17/19 15:40 37.0 C 82 18 141/65 H 95 10/17/19 12:02 37.2 C 62 16 147/70 H 96 Intake and Output 10/17/19 10/18/19 10/18/19 22:59 06:59 14:59 Intake Total 395 / 995 300 / 300 Balance 395 / 995 300 / 300 Intake: Oral 395 / 995 300 / 300 Other: Weight 95.8 kg Patient Weight 10/19/19 06:59 Weight 95.8 kg Constitutional: WD/WN, vitals as above Musculoskeletal: right elbow: posterior incision with skin edges well approximated with nylon sutures, there is swelling present the posterior elbow, mild erythema but improving. he can move it gently without any pain. Radial pulse +2, radial/med/ulnar nerves intact distally. Results & Data Vital Signs (Past 12 Hours) Vital Signs Temp Pulse Pulse Resp BP Pulse Ox 10/18/19 07:49 36.6 C 75 18 135/86 98 10/18/19 02:31 36.6 C 73 18 136/84 96 10/18/19 00:00 36.7 C 70 71 18 148/77 H 97 Laboratory Results Laboratory Results WBC 13.07 K/uL (4.8-10.8) H 10/18/19 06:53 RBC 3.76 M/uL (4.7-6.1) L 10/18/19 06:53 Hgb 11.7 g/dL (14.0-18.0) L 10/18/19 06:53 Hct 35.4 % (42-52) L 10/18/19 06:53 MCV 94.1 fL (80-100) 10/18/19 06:53 MCH 31.1 pg (25-34) 10/18/19 06:53 MCHC 33.1 g/dL (32-36) 10/18/19 06:53 RDW Std Deviation 51.4 fL (36.4-46.3) H 10/18/19 06:53 RDW Coeff of Tamera 15.1 % (11.5-14.5) H 10/18/19 06:53 Plt Count 543 K/uL (130-400) H 10/18/19 06:53 MPV 8.6 fL (7.4-10.4) 10/18/19 06:53 Immature Gran % (Auto) 2.0 % 10/18/19 06:53 Neut % (Auto) 68.0 % 10/18/19 06:53 Lymph % (Auto) 20.8 % 10/18/19 06:53 [place] % (Auto) 7.9 % 10/18/19 06:53 Eos % (Auto) 1.1 % 10/18/19 06:53 Baso % (Auto) 0.2 % 10/18/19 06:53 Immature Gran # (Auto) 0.26 K/uL (0.00-0.02) H 10/18/19 06:53 Neut # (Auto) 8.89 K/uL (1.4-6.5) H 10/18/19 06:53 Lymph # (Auto) 2.72 K/uL (1.2-3.4) 10/18/19 06:53 [place] # (Auto) 1.03 K/uL (0.11-0.59) H 10/18/19 06:53 Eos # (Auto) 0.14 K/uL (0-0.5) 10/18/19 06:53 Baso # (Auto) 0.03 K/uL (0-0.2) 10/18/19 06:53 Sodium 138 mmol/L (136-145) 10/18/19 06:53 Potassium 4.3 mmol/L (3.5-5.1) 10/18/19 06:53 Chloride 106 mmol/L (98-107) 10/18/19 06:53 Carbon Dioxide 27 mmol/L (21-32) 10/18/19 06:53 Anion Gap 6.0 (3-11) 10/18/19 06:53 BUN 22 mg/dl (7-18) H D 10/18/19 06:53 Creatinine 0.85 mg/dl (0.6-1.4) 10/18/19 06:53 Est Cr Clr Drug Dosing 116.0 ml/min 10/18/19 06:53 Est GFR ( Amer) 113.7 10/18/19 06:53 Est GFR (Non-Af Amer) 98.1 10/18/19 06:53 BUN/Creatinine Ratio 25.6 (10-20) H 10/18/19 06:53 Glucose 95 mg/dl (70-99) 10/18/19 06:53 Estimat Average Glucose 120 mg/dl 10/16/19 06:36 Hemoglobin A1c 5.8 % (4.5-5.6) H 10/16/19 06:36 Calcium 9.9 mg/dl (8.5-10.1) 10/18/19 06:53 Magnesium 1.8 mg/dl (1.8-2.4) 10/17/19 06:07 Total Bilirubin 0.2 mg/dl (0.2-1) 10/15/19 07:40 AST 25 U/L (15-37) 10/15/19 07:40 ALT 32 U/L (12-78) 10/15/19 07:40 Alkaline Phosphatase 48 U/L (45-117) 10/15/19 07:40 Total Protein 7.0 gm/dl (6.4-8.2) 10/15/19 07:40 Albumin 2.5 gm/dl (3.4-5.0) L 10/15/19 07:40 Globulin 4.5 gm/dl (2.5-4.0) H 10/15/19 07:40 Albumin/Globulin Ratio 0.6 (0.9-2) L 10/15/19 07:40 Folate 15.80 ng/ml (>5.38) 10/13/19 15:22 Ethyl Alcohol mg/dL 50.0 mg/dl (0-3) H 10/13/19 15:22 Microbiology 10/13/19 15:32 Blood Aerobic Blood Culture - Preliminary No growth in Aerobic bottle after 48 hours. 10/13/19 15:32 Blood Anaerobic Blood Culture - Preliminary No growth in Anaerobic bottle after 48 hours. 10/13/19 15:22 Blood Aerobic Blood Culture - Preliminary No growth in Aerobic bottle after 48 hours. 10/13/19 15:22 Blood Anaerobic Blood Culture - Preliminary No growth in Anaerobic bottle after 48 hours.
[2019-10-18] MEDS: carvediloL 12.5 MG TAB PO SCH ×2 (08:21→20:10)
[2019-10-18] MEDS: FOLIC ACID 1 MG TAB PO SCH (08:22)
[2019-10-18] MEDS: hydroCHLOROthiazide 25 MG TAB PO SCH (08:22)
[2019-10-18] MEDS: HEPARIN SOD 5,000 UNIT/0.5 ML VIAL SQ SCH ×2 (08:24→20:11)
[2019-10-18] MEDS: AMLODIPINE BESYLATE 5 MG TAB PO SCH (08:27)
[2019-10-18] MEDS: ATORVASTATIN 10 MG TAB PO SCH (08:27)
[2019-10-18] MEDS: THIAMINE HCL 100 MG TAB PO SCH (08:28)
[2019-10-18] MEDS: MULTIVITAMIN TAB PO SCH (08:28)
[2019-10-18] MEDS: CITALOPRAM 40 MG TAB PO SCH (08:29)
[2019-10-18] MEDS: OXYCODONE HCL IR 5 MG TAB (IMMEDIATE RELEASE) PO PRN ×2 (08:43→20:10)
[2019-10-18] MEDS: metroNIDAZOLE 500 MG/100 ML BAG IV SCH ×2 (09:38→16:38)
--- NOTE | 2019-10-18 16:46 | Hospitalist Progress Note ---
Date of Service October 18, 2019 Assessment & Plan (1) Rupture of right triceps tendon: (2) Post-operative infection: Patient is a 54 yr male with H/O Right triceps tendon rupture s/p post-op infection and washout, alcohol use disorder, HTN and anxiety who presents from outpatient orthopedic surgical center for IV antibiotic treatment. Wound Dehiscence S/P ruptured biceps surgery by Dr. Goodwin on or rupture of right triceps in August S/P I&D POD # 5 S/P repeat Procedure on 10/15/19 Blood cultures: No growth to date Wound culture: Staph. aureus (MSSA), Finegoldia magna Continue IV vancomycin, Zosyn transitioned to IV Ancef, added flagyl May need to complete IV antibiotic course for 4 weeks Appreciate orthopedics input Pain control, wound care Consult ID for Input Prediabetes Hb A1C:5.8 Monitor (3) Alcohol use disorder: H/O Alcoholism with DTs in the past. Required intubation for airway protection during 2013 admission Serum alcohol level: 50 Continue Alcohol withdrawal protocol with gabapentin, Ativan PRN Continue Folate, thiamine Counseled to quit drinking (4) HTN (hypertension): BP elevated Likely de to pain, in setting of possible withdrawal Changed metoprolol to Coreg 12.5 mg twice daily Amlodipine dose increased to 10 mg daily HCTZ increased to 25 mg daily Hydralazine PRN BP better (5) Anxiety: Continue SSRI and PRN ativan (6) History of lumbar surgery: Residual chronic left foot drop DVT Px: Heparin SQ Code status: Full Code Disposition: PCP: Dr.Manisha Lindo Subjective Patient is seen and examined at bedside Right elbow pain better BP is better controlled No new complaints Denies any chest pain, SOB, dizziness, nausea, abd pain Eager to get discharged Review of Systems Review of Systems: All systems reviewed & are unremarkable except as noted in HPI & below Physical Exam Physical Exam: Physical Exam: Vitals signs as noted above General Appearance:Moderately built and nourished, no apparent distress Head: normocephalic, Atraumatic Eyes: normal inspection, EOMI Neck: supple, Trachea midline Respiratory/Chest: Normal breath sounds, CTA Cardiovascular: S1, S2, No murmur Abdomen/GI:Soft, Non tender, Bowel sounds present Extremities/Musculoskelatal:normal inspection, no edema, R elbow in dressing Neurologic/Psych:AAOX3, grossly no focal neurological deficits Skin: normal color, warm Results & Data Vital Signs (Past 12 Hours) Vital Signs Temp Pulse Resp BP Pulse Ox 10/18/19 15:57 36.8 C 86 18 139/64 99 10/18/19 12:23 37.0 C 71 20 117/71 95 10/18/19 07:49 36.6 C 75 18 135/86 98 Laboratory Results Short CBC 10/18/19 Range/Units 06:53 WBC 13.07 H (4.8-10.8) K/uL Hgb 11.7 L (14.0-18.0) g/dL Hct 35.4 L (42-52) % Plt Count 543 H (130-400) K/uL BMP 10/18/19 06:53 Sodium 138 Potassium 4.3 Chloride 106 Carbon Dioxide 27 BUN 22 H D Creatinine 0.85 Glucose 95 Calcium 9.9
[2019-10-18] MEDS: LORazepam 1 MG TAB PO PRN (20:10)
[2019-10-18] MEDS: POLYETHYLENE (MIRALAX) 17 GM PACK PO PRN (20:11)
[2019-10-19] MEDS: metroNIDAZOLE 500 MG/100 ML BAG IV SCH ×2 (02:11→09:41)
[2019-10-19] MEDS: CEFAZOLIN 2000MG 2,000 MG/15 ML SYR IV SCH ×2 (02:11→08:23)
[2019-10-19 07:04] LABS: Basophils # (auto) 0.03 K/uL (0-0.2); Basophils % (auto) 0.2 %; Eosinophils # (auto) 0.26 K/uL (0-0.5); Eosinophils % (auto) 1.9 %; Hemoglobin 11.2 g/dL (14.0-18.0); Immature Granulocytes # (auto) 0.22 K/uL (0.00-0.02); Immature Granulocytes % (auto) 1.6 %; Lymphocytes # (auto) 2.39 K/uL (1.2-3.4); Lymphocytes % (auto) 17.4 %; Mean Corpuscular Hemoglobin 30.4 pg (25-34); Mean Corpuscular Hgb Conc 32.9 g/dL (32-36); Mean Corpuscular Volume 92.4 fL (80-100); Mean Platelet Volume 8.7 fL (7.4-10.4); Monocytes # (auto) 1.28 K/uL (0.11-0.59); Monocytes % (auto) 9.3 %; Neutrophils # (auto) 9.59 K/uL (1.4-6.5); Neutrophils % (auto) 69.6 %; Platelet Count 503 K/uL (130-400); RDW Coefficient of Variation 15.4 % (11.5-14.5); RDW Standard Deviation 51.8 fL (36.4-46.3); Red Blood Count 3.68 M/uL (4.7-6.1); White Blood Count 13.77 K/uL (4.8-10.8)
[2019-10-19 07:38] LABS: BUN Creatinine Ratio 24.7 (10-20); Calcium 9.9 mg/dl (8.5-10.1); Creatinine Clr Calc Pharmacy 91.8 ml/min; Est GFR (African American) 90.1; Est GFR (Non-African American) 77.7; Potassium 4.2 mmol/L (3.5-5.1)
[2019-10-19] MEDS: AMLODIPINE BESYLATE 5 MG TAB PO SCH (08:17)
[2019-10-19] MEDS: carvediloL 12.5 MG TAB PO SCH (08:17)
[2019-10-19] MEDS: MULTIVITAMIN TAB PO SCH (08:18)
[2019-10-19] MEDS: hydroCHLOROthiazide 25 MG TAB PO SCH (08:18)
[2019-10-19] MEDS: ATORVASTATIN 10 MG TAB PO SCH (08:19)
[2019-10-19] MEDS: HEPARIN SOD 5,000 UNIT/0.5 ML VIAL SQ SCH (08:19)
[2019-10-19] MEDS: CITALOPRAM 40 MG TAB PO SCH (08:19)
[2019-10-19] MEDS: THIAMINE HCL 100 MG TAB PO SCH (08:19)
[2019-10-19] MEDS: FOLIC ACID 1 MG TAB PO SCH (08:20)
[2019-10-19] MEDS: OXYCODONE HCL IR 5 MG TAB (IMMEDIATE RELEASE) PO PRN (08:23)
--- NOTE | 2019-10-19 09:08 | Infectious Disease Consult ---
Date of Consultation October 19, 2019 Assessment & Plan (1) Post-operative infection: would prefer treatment with IV abx but pt has declined stating po abx would be easier for him at home. would suggest 21 days po keflex 500mg po tid and can change to po flagyl, would avoid alcohol while on flagyl. ok for d/c from ID standpoint when otherwise stable. History of Present Illness Attending Physician: Manjeet Marti MD pt admitted with post op infection. had triceps tear and repair, with poor wound healing, had outpt surgery on 10/13 -purulent drainge noted, culture grew MSSA sent to ER for admission and IV abx. states he is doing much better. no pain, no f/c. no n/v/d/abd pain, moving hand with no issues. remains on IV ancef and phipps. blood cultures negative. states he is awaiting ID eval for d/c to home, he is declining IV abx upon d/c Allergies Allergy/AdvReac Type Severity Reaction Status Date / Time lisinopril Allergy Severe ANGIOEDEMA Verified 09/17/19 09:56 Home Medications Home Medications Medication Instructions Recorded Confirmed Type atorvastatin 10 mg PO QAM 04/26/19 10/13/19 History hydrochlorothiazide 12.5 mg PO QAM 04/26/19 10/13/19 History lorazepam 1 mg PO BID PRN 04/26/19 10/13/19 History metoprolol succinate 25 mg PO BID 04/26/19 10/13/19 History multivitamin 1 tab PO QAM 04/26/19 10/13/19 History omega 5-[id number]-fish oil [Fish Oil] 1 cap PO QAM 04/26/19 10/13/19 History albuterol sulfate 90 mcg INHALATION Q6H PRN 09/14/19 10/13/19 History citalopram 40 mg PO QAM 09/14/19 10/13/19 History gabapentin 100 mg PO DAILY 09/14/19 10/13/19 History milk thistle 150 mg PO QAM 09/14/19 10/13/19 History Patient History Medical History Alcohol use disorder Anxiety (Chronic) Diverticulitis (Resolved) hx of HTN (hypertension) (Chronic) Rupture of right triceps tendon (Acute) Seasonal allergies inhaler PRN listed on medications/no hx asthma/copd noted per RN phone assessment Surgical History History of lumbar surgery (Chronic) L4-L5 decompression, residual drop left foot History of tonsillectomy (Chronic) Hx of colonoscopy Hx of lumbar discectomy x2 S/P partial colectomy (Resolved) Left colon resection S/P tendon repair Family History Father Stroke AAA (abdominal aortic aneurysm) Smoker Mother Coronary heart disease Hypertension Smoker Uncle Prostate cancer Diverticulitis Social History Preferred Language: Czech Communication Ability: Effective 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 reportedly decreased to 6 pack daily Hx Substance Use: No Childhood Exposure to Second-Hand Smoke: Yes Review of Systems Review of Systems: All systems reviewed & are unremarkable except as noted in HPI & below Physical Exam Constitutional: WD/WN, vitals as above Eyes: PERRL, conjunctivae normal, anicteric sclerae ENMT: external ear and nose normal, oropharynx normal Neck: normal visual inspection Respiratory: normal respiratory effort, lungs clear to auscultation Cardiovascular: RRR, no murmur, no edema Gastrointestinal (Abdomen): normal bowel sounds, soft, nontender, no hepatosplenomegaly Musculoskeletal: no cyanosis or clubbing, extremities motor strength 5/5 Skin: no rashes, warm and dry dressing c/d/i Psychiatric: A+Ox3, euthymic affect Results & Data Vital Signs (Past 12 Hours) Vital Signs Temp Pulse Pulse Resp BP Pulse Ox 10/19/19 07:55 75 10/19/19 06:54 36.9 C 65 18 148/78 H 96 10/19/19 03:54 36.8 C 79 18 137/58 L 97 10/18/19 23:44 70 10/18/19 23:21 37.1 C 70 18 138/69 96 Laboratory Results Microbiology 10/13/19 15:32 Blood Aerobic Blood Culture - Final No growth in Aerobic bottle after 5 days. 10/13/19 15:32 Blood Anaerobic Blood Culture - Final No growth in Anaerobic bottle after 5 days. 10/13/19 15:22 Blood Aerobic Blood Culture - Final No growth in Aerobic bottle after 5 days. 10/13/19 15:22 Blood Anaerobic Blood Culture - Final No growth in Anaerobic bottle after 5 days. PG Care Time/CCT Total # of Minutes Spent Total Time Spent with Patient: Total time spent is greater than 50% in coordination of care (as documented) at patient's floor/unit and/or counseling patient:
[2019-10-19] MEDS: LORazepam 1 MG TAB PO PRN (09:49)
--- NOTE | 2019-10-19 09:52 | Orthopedic Progress Note ---
Date of Service October 19, 2019 Assessment & Plan (1) Post-operative infection: 54 yo male stable POD #4(2nd procedure) s/p I&D right elbow wound infection 1. Med management: cont abx per ID and d/c when stable per medicine on po Keflex and po Flagyl 2. Daily dressing changes as needed, may leave wound open to air when dry. May shower upon discharge. ROM as tolerated. 3. F/U with Dr Goodwin 7-10 days. Call [phone] for appt. Subjective Pt resting in bed, pain controlled, denies complaints Physical Exam Physical Exam: Dressing changed, wound C/D/I, fingers mobile, NVI, new dressing applied Results & Data Vital Signs (Past 12 Hours) Vital Signs Temp Pulse Pulse Resp BP Pulse Ox 10/19/19 07:55 75 10/19/19 06:54 36.9 C 65 18 148/78 H 96 10/19/19 03:54 36.8 C 79 18 137/58 L 97 10/18/19 23:44 70 10/18/19 23:21 37.1 C 70 18 138/69 96 Laboratory Results 10/19/19 10/19/19 Range/Units 06:46 06:46 WBC 13.77 H (4.8-10.8) K/uL RBC 3.68 L (4.7-6.1) M/uL Hgb 11.2 L (14.0-18.0) g/dL Hct 34.0 L (42-52) % MCV 92.4 (80-100) fL MCH 30.4 (25-34) pg MCHC 32.9 (32-36) g/dL RDW Std Deviation 51.8 H (36.4-46.3) fL RDW Coeff of Tamera 15.4 H (11.5-14.5) % Plt Count 503 H (130-400) K/uL MPV 8.7 (7.4-10.4) fL Immature Gran % (Auto) 1.6 % Neut % (Auto) 69.6 % Lymph % (Auto) 17.4 % [place] % (Auto) 9.3 % Eos % (Auto) 1.9 % Baso % (Auto) 0.2 % Immature Gran # (Auto) 0.22 H (0.00-0.02) K/uL Neut # (Auto) 9.59 H (1.4-6.5) K/uL Lymph # (Auto) 2.39 (1.2-3.4) K/uL [place] # (Auto) 1.28 H (0.11-0.59) K/uL Eos # (Auto) 0.26 (0-0.5) K/uL Baso # (Auto) 0.03 (0-0.2) K/uL Sodium 137 (136-145) mmol/L Potassium 4.2 (3.5-5.1) mmol/L Chloride 104 (98-107) mmol/L Carbon Dioxide 29 (21-32) mmol/L Anion Gap 4.0 (3-11) BUN 26 H (7-18) mg/dl Creatinine 1.07 (0.6-1.4) mg/dl Est Cr Clr Drug Dosing 91.8 ml/min Est GFR ( Amer) 90.1 Est GFR (Non-Af Amer) 77.7 BUN/Creatinine Ratio 24.7 H (10-20) Glucose 97 (70-99) mg/dl Calcium 9.9 (8.5-10.1) mg/dl Microbiology 10/13/19 15:32 Aerobic Blood Culture - Final Blood No growth in Aerobic bottle after 5 days. Anaerobic Blood Culture - Final No growth in Anaerobic bottle after 5 days. 10/13/19 15:22 Aerobic Blood Culture - Final Blood No growth in Aerobic bottle after 5 days. Anaerobic Blood Culture - Final No growth in Anaerobic bottle after 5 days.
--- NOTE | 2019-10-19 12:31 | Hospitalist Progress Note ---
Date of Service October 19, 2019 Assessment & Plan (1) Rupture of right triceps tendon: (2) Post-operative infection: Patient is a 54 yr male with H/O Right triceps tendon rupture s/p post-op infection and washout, alcohol use disorder, HTN and anxiety who presents from outpatient orthopedic surgical center for IV antibiotic treatment. Wound Dehiscence S/P ruptured biceps surgery by Dr. Goodwin on or rupture of right triceps in August S/P I&D POD # 6 S/P repeat Procedure on 10/15/19 Blood cultures: No growth to date Wound culture: Staph. aureus (MSSA), Finegoldia magna On IV vancomycin, Zosyn transitioned to IV Ancef and flagyl Appreciate ID and Orthopedics input Pain control, wound care Plan to discharge to PO Abx upon discharge as per ID --PO keflex and flagyl for 21 days Prediabetes Hb A1C:5.8 Monitor (3) Alcohol use disorder: H/O Alcoholism with DTs in the past. Required intubation for airway protection during 2013 admission Serum alcohol level: 50 Continue Alcohol withdrawal protocol with gabapentin, Ativan PRN Continue Folate, thiamine Counseled to quit drinking (4) HTN (hypertension): BP elevated Likely de to pain, in setting of possible withdrawal Changed metoprolol to Coreg 12.5 mg twice daily Amlodipine dose increased to 10 mg daily HCTZ increased to 25 mg daily Hydralazine PRN BP better (5) Anxiety: Continue SSRI and PRN ativan (6) History of lumbar surgery: Residual chronic left foot drop DVT Px: Heparin SQ Code status: Full Code Disposition: PCP: Dr.Manisha Lindo Plan to discharge home today Subjective Patient is seen and examined at bedside Doing well today Right elbow pain is minimal Denies any chest pain, SOB, dizziness, nausea, abd pain Appreciate ID input regarding antibiotics Plan to discharge home today Review of Systems Review of Systems: All systems reviewed & are unremarkable except as noted in HPI & below Physical Exam Physical Exam: Physical Exam: Vitals signs as noted above General Appearance:Moderately built and nourished, no apparent distress Head: normocephalic, Atraumatic Eyes: normal inspection, EOMI Neck: supple, Trachea midline Respiratory/Chest: Normal breath sounds, CTA Cardiovascular: S1, S2, No murmur Abdomen/GI:Soft, Non tender, Bowel sounds present Extremities/Musculoskelatal:normal inspection, no edema, R elbow in dressing Neurologic/Psych:AAOX3, grossly no focal neurological deficits Skin: normal color, warm Results & Data Vital Signs (Past 12 Hours) Vital Signs Temp Pulse Pulse Resp BP Pulse Ox 10/19/19 11:11 36.8 C 65 18 130/68 95 10/19/19 07:55 75 10/19/19 06:54 36.9 C 65 18 148/78 H 96 10/19/19 03:54 36.8 C 79 18 137/58 L 97 Laboratory Results Short CBC 10/19/19 Range/Units 06:46 WBC 13.77 H (4.8-10.8) K/uL Hgb 11.2 L (14.0-18.0) g/dL Hct 34.0 L (42-52) % Plt Count 503 H (130-400) K/uL BMP 10/19/19 06:46 Sodium 137 Potassium 4.2 Chloride 104 Carbon Dioxide 29 BUN 26 H Creatinine 1.07 Glucose 97 Calcium 9.9
--- NOTE | 2019-10-19 12:59 | Discharge Summary ---
Date of Service October 19, 2019 Admission HPI Per Admitting Provider This is a 54yo M with a PMH of R triceps tendon rupture s/p post-op infection and washout earlier today, alcohol use disorder, HTN and anxiety who presents from outpatient orthopedic surgical center for IV antibiotic treatment. Patient had rupture of right distal triceps back in August and presented to [facility] approximately 1 month later because swelling did not resolve on its own. Underwent repair by Dr. Goodwin without issue and was noted to have a small hematoma at site of wound 2 weeks later at follow-up appointment. Reportedly had dehiscence of wound with bloody drainage the following day, but did not call orthopedic service. Was later noted to have open wound at PT, who contacted orthopedic service due to concern for infection. Underwent washout today by Dr. Goodwin at [facility] surgery center and had foul smelling purulent drainage that ortho felt would require repeat washout and IV antibiotics. Also with history of alcoholism and DTs in the past. Per chart review, in 2012 patient was admitted for unrelated issue and went through alcohol withdrawal, developing DTs, requiring intubation for airway protection. Has reportedly decreased alcohol intake since then but would not quantify amount, stating "I do not want a talk about this anymore". Unclear when last drink was consumed. no longer lives with the patient but states that he has decreased alcohol intake and guesses he only drinks a sixpack a day now but is not certain. Requests that we do not discuss alcohol habits while she is in the room due to history of abuse. Patient is currently endorsing 8 out of 10 surgical site pain. Denies any fever, chills, lightheadedness, visual changes, chest pain, shortness of breath, nausea, vomiting, abdominal pain, dysuria, diarrhea or constipation. Admission Exam Per Admitting Provider Physical Exam Physical Exam: General Appearance: WD/WN, vitals as above, NAD, sitting up in bed, pleasant, conversing easily Head: normocephalic, atraumatic Eyes: normal inspection, PERRL, conjunctivae normal, anicteric sclerae ENT: external ear and nose normal, oropharynx normal Neck: trachea midline, no thyromegaly normal visual inspection Respiratory: normal respiratory effort, lungs clear to auscultation, no wheeze, rales, rhonchi. Normal insp/exp effort, no accessory muscle use Cardiovascular: regular rate, rhythm, no murmur, normal peripheral pulses. Vessels: no JVD or carotid bruit Chest: normal inspection of chest Abdomen/GI: normal bowel sounds, soft, nontender, no hepatosplenomegaly Extremities/Musculoskelatal: R arm in bandage with drain visualized. Normal cap refill. No cyanosis or clubbing, extremities motor strength 5/5 Neurologic: PERRL, EOMI, accommodation nl, no face palsy, no dysarthria, CN's II-XI intact bilaterally and moves all extremities. + Chronic L foot drop Psychiatric: A+Ox3, variable mood Skin: no rashes, normal color, warm/dry Principal Diagnosis Postoperative wound infection Hypertension Discharge Data Allergies Allergy/AdvReac Type Severity Reaction Status Date / Time lisinopril Allergy Severe ANGIOEDEMA Verified 09/17/19 09:56 Consultations 10/13/19 14:16 Consult Orthopedic Surgery Routine 10/16/19 19:10 Consult Case Management - Discharge Planning Routine 10/19/19 08:00 Consult Infectious Diseases Routine Procedures Performed Operation Date: 10/15/19 07:30 Actual Procedures p Right Elbow Incision and Drainage(Right) - Blane Goodwin M.D. Hospital Course (1) Rupture of right triceps tendon: (2) Post-operative infection: Patient is a 54 yr male with H/O Right triceps tendon rupture s/p post-op infection and washout, alcohol use disorder, HTN and anxiety who presents from outpatient orthopedic surgical center for IV antibiotic treatment. Wound Dehiscence S/P ruptured biceps surgery by Dr. Goodwin on or rupture of right triceps in August S/P I&D POD # 6 S/P repeat Procedure on 10/15/19 Blood cultures: No growth to date Wound culture: Staph. aureus (MSSA), Finegoldia magna On IV vancomycin, Zosyn transitioned to IV Ancef and flagyl Appreciate ID and Orthopedics input Pain control, wound care Plan to discharge to PO Abx upon discharge as per ID --PO keflex and flagyl for 21 days Prediabetes Hb A1C:5.8 Monitor (3) Alcohol use disorder: H/O Alcoholism with DTs in the past. Required intubation for airway protection during 2013 admission Serum alcohol level: 50 Continue Alcohol withdrawal protocol with gabapentin, Ativan PRN Continue Folate, thiamine Counseled to quit drinking (4) HTN (hypertension): BP elevated Likely de to pain, in setting of possible withdrawal Changed metoprolol to Coreg 12.5 mg twice daily Amlodipine dose increased to 10 mg daily HCTZ increased to 25 mg daily Hydralazine PRN BP better (5) Anxiety: Continue SSRI and PRN ativan (6) History of lumbar surgery: Residual chronic left foot drop DVT Px: Heparin SQ Code status: Full Code Disposition: PCP: Dr.Manisha Lindo Plan to discharge home today Total Time Total Time Spent Total Time Spent (In Minutes): 40 minutes Total Time Includes: Examination of the Patient, Discharge Planning, Medication Reconciliation, Communication With Other Providers and Other Discharge Plan Discharge Items Patient Disposition: Home - Self-Care Reason For Visit: POST OP INFECTION,ALCOHOL WITHDRAWL Discharge Diagnosis: Postoperative wound infection Hypertension Activity: Per Instructions section Exercise/Sports: Gradually increase as tolerated Non-emergency contact: Primary Care Provider and Surgeon Call non-emergency contact if: you have any medication questions, your symptoms worsen, your pain is not controlled, your pain is worsening, your pain is unusual for you, your pain is concerning for you, you have a fever, your wound has increased redness, your wound has increased drainage and your wound pain has increased Follow-up/Referrals: Rashmi Lindo MD [Primary Care Provider] - Diet: Heart Healthy Addtl Attending Provider Instructions: Follow-up with your primary care physician Dr. Rashmi Lindo on October 22, 2019 at 2:05 PM Follow-up with your orthopedic surgeon Dr. Blane Goodwin in 7 -10 days. Please call [phone] for appointment Complete the antibiotic course(Keflex, Flagyl) as prescribed for 3 weeks as recommended by your infectious disease Dr. Barba Seek immediate medical attention if your symptoms reoccur or worsen Pending Studies at Discharge: No Stand-Alone Forms: My Co-Work, Smoking Cessation Medications and DC Order Prescriptions: New carvedilol 12.5 mg Tablet 12.5 mg PO BID 30 Days Qty: 60 RF: 0 amlodipine [Norvasc] 5 mg Tablet 10 mg PO QAM Qty: 30 RF: 0 cephalexin [Keflex] 500 mg capsule 500 mg PO TID 21 Days Qty: 63 RF: 0 metronidazole [Flagyl] 500 mg tablet 500 mg PO TID 21 Days Qty: 63 RF: 0 oxycodone 5 mg tablet 5 mg PO Q8H PRN (Reason: pain) Qty: 10 RF: 0 Continued multivitamin Tablet 1 tab PO QAM RF: 0 atorvastatin 10 mg tablet 10 mg PO QAM RF: 0 lorazepam 0.5 mg tablet 1 mg PO BID PRN (Reason: Anxiety) RF: 0 omega [id number]-fish oil [Fish Oil] 1,000 mg (120 mg-180 mg) Capsule 1 cap PO QAM RF: 0 citalopram 40 mg tablet 40 mg PO QAM RF: 0 milk thistle 150 mg Capsule 150 mg PO QAM RF: 0 gabapentin 100 mg Capsule 100 mg PO DAILY RF: 0 albuterol sulfate 90 mcg/actuation Aerosol Powdr Breath Activated 90 mcg INHALATION Q6H PRN (Reason: sob) RF: 0 Changed hydrochlorothiazide 12.5 mg capsule 25 mg PO QAM Qty: 60 RF: 0 Discontinued metoprolol succinate 25 mg tablet extended release 24 hr 25 mg PO BID RF: 0 Discharge Orders: Discharge Order (Routine); Ordered 10/19/19 Ordered By: Manjeet Mcknight/Other Patient Handouts: Prediabetes, Amlodipine, ED Wound Check Post Op Infec, Metronidazole Oral tablet, Cephalexin Monohydrate Oral tablet, Carvedilol Oral tablet, A1C Admission Data Admit Date/Time: 10/13/19 14:35 Attending Provider: Manjeet Marti Admit Provider: Aries Shell Primary Care Provider: Rashmi Lindo Other Providers: Blane Goodwin Jennifer Other Interventions: Discharge Summary Assessment (RN) Last Done: 10/19/19 13:05 DC Date/Time DO NOT enter until pt leaves facility: 10/19/19 14:45
--- NOTE | 2019-10-23 13:57 | Coding Query ---
DEBRIDEMENT DOCUMENTATION To promote full compliance with coding requirements relating to patient care, physician participation is requested in all cases of barrel handler uncertainty. Please assist us with the question(s) below: Please place an X in the parenthesis (x). If other, please document the finding: Type of Debridement: ( X ) Excisional Debridement- Cutting away necrotic, devitalized tissue or slough to the level of viable tissue using a sharp instrument (i.e. scalpel, scissors, etc.) ( ) Non Excisional Debridement- The removal of necrotic, devitalized tissue or slough by means of scraping, mechanical brushing, flushing, or washing (i.e. irrigation,whirlpool);minor removal of loose fragments. ( ) Other (please specify): Instrument Used: ( ) Scissors ( ) Scalpel ( X ) Curette ( ) Other (please specify): Depth of Debridement: ( ) Skin ( ) Skin and Subcutaneous Tissue ( ) Skin, Subcutaneous Tissue and Muscle ( X ) Skin, Subcutaneous Tissue, Muscle and Bone ( ) Other (please specify): Please Specify the Size of Debridement in cm2: Thank you Shira LUCERO
== END 2019-10-19 14:45 | disposition home or self-care (01) | DRG 863 ==
LOC: 2S 14:35 → SUATTDRO 14:35

== ENCOUNTER 2024-11-24 16:33 | Inpatient (IN) ==
[2024-11-24 17:35] LABS: Basophils # (auto) 0.03 K/uL (0.00-0.20); Basophils % (auto) 0.6 %; Eosinophils # (auto) 0.07 K/uL (0.00-0.50); Eosinophils % (auto) 1.5 %; Hematocrit (blood only) 37.2 % (42.0-52.0); Hemoglobin 12.4 g/dl (14.0-18.0); Immature Granulocytes # (auto) 0.03 K/uL (0.01-0.20); Immature Granulocytes % (auto) 0.6 %; Lymphocytes # (auto) 0.98 K/uL (1.20-3.40); Lymphocytes % (auto) 21.2 %; Mean Corpuscular Hemoglobin 31.2 pg (25.0-34.0); Mean Corpuscular Hgb Conc 33.3 g/dL (32.0-36.0); Mean Corpuscular Volume 93.7 fL (80.0-100.0); Mean Platelet Volume 9.7 fL (9.4-12.4); Monocytes # (auto) 0.58 K/uL (0.11-0.59); Monocytes % (auto) 12.5 %; Neutrophils # (auto) 2.94 K/uL (1.40-6.50); Neutrophils % (auto) 63.6 %; Platelet Count 235 K/uL (130-400); RDW Coefficient of Variation 15.2 % (11.5-14.5); RDW Standard Deviation 52.6 fL (36.4-46.3); Red Blood Count 3.97 M/uL (4.70-6.10); White Blood Count 4.63 K/ul (4.8-10.8)
[2024-11-24 17:51] LABS: Albumin Globulin Ratio 1.4 (0.9-2); Albumin Level 3.7 gm/dl (3.4-5.0); BUN Creatinine Ratio 18.2 (10-20); Bilirubin,Total 0.6 mg/dl (0.2-1.0); Calcium 9.3 mg/dl (8.6-10.3); Creatinine Clr Calc Pharmacy 83.7 ml/min; Globulin 2.7 gm/dl (2.5-4.0); Potassium 3.6 mmol/L (3.5-5.1); Total Protein 6.4 gm/dl (6.0-8.3)
[2024-11-24 17:58] LABS: Troponin I High Sensitivity 34.2 pg/ml (0-20)
[2024-11-24] MEDS: METOPROLOL TARTRATE 1 MG/ML VIAL IV STA (18:37)
[2024-11-24] MEDS: FUROSEMIDE 40 MG/4 ML VIAL IV ONE (18:38)
[2024-11-24 18:47] LABS: Magnesium 1.8 mg/dl (1.7-2.4)
[2024-11-24 19:03] LABS: Thyroid Stimulating Hormone 3.764 uIu/ml (0.300-4.500)
--- NOTE | 2024-11-24 19:15 | XRay Report ---
Exam: Chest one view Reason for exam: Chest pain Previous study: None Findings there is moderate cardiomegaly with pulmonary venous hypertension but no mary lou edema or lung infiltrate. No pleural effusion or pneumothorax is evident. IMPRESSION: Moderate cardiomegaly with pulmonary venous hypertension. Otherwise negative for acute disease. Electronically signed by Zay Campbell 11-24-2024 7:15 PM
[2024-11-24 19:21] LABS: INR 1.4 (0.9-1.1); Partial Thromboplastin Time 26 Seconds (21-31); Prothrombin Time 14.6 Seconds (9.0-12.0)
--- NOTE | 2024-11-24 20:05 | Ultrasound Report ---
DVT ULTRASOUND BILATERAL LOWER EXTREMITY INDICATION: Pain TECHNIQUE: Grayscale and color Doppler evaluation of the BILATERAL femoral-popliteal venous system was performed. A duplex Doppler study was performed, consisting of integrated two-dimensional (2D) real-time imaging: Color flow Doppler and Doppler spectral analysis. COMPARISON: None FINDINGS: RIGHT common femoral, femoral and popliteal veins: Normal compressibility, color flow, respiratory variation. No intraluminal echogenic material. LEFT common femoral, femoral and popliteal veins: Normal compressibility, color flow, respiratory variation. No intraluminal echogenic material. Subcutaneous edema of both lower extremities. IMPRESSION: No evidence of deep venous thrombus in bilateral femoral-popliteal venous systems. Subcutaneous edema of both lower extremities. Electronically signed by Zan Caballero 11-24-2024 8:04 PM
[2024-11-24] MEDS ORDERED: STAT IV Infusion **Titration per Protocol STA ×2 (20:23→20:28)
[2024-11-24] MEDS ORDERED: dilTIAZem HCL 125 MG in DEXTROSE 5% 100 ML IV SCH (20:30)
[2024-11-24] MEDS: HEPARIN 25000 UNIT/500 ML D5W 25,000 UNITS/500 ML BAG IV SCH (20:59)
[2024-11-24] MEDS: HEPARIN SOD (PORCINE) 1000 UNIT/ML IV ONE (21:00)
[2024-11-24] MEDS: THIAMINE HCL 100 MG in SYRINGE 9 ML IV ONE (21:01)
[2024-11-24] MEDS: Heparin IV Adult Wt-Based Standard w/ INITIAL Bolus Protocol IV STA (21:03)
[2024-11-24] MEDS: dilTIAZem HCL 125 MG in DEXTROSE 5% 100 ML IV SCH (21:03)
[2024-11-24] MEDS: FOLIC ACID 1 MG in SYRINGE 9.8 ML IV ONE (22:00)
[2024-11-24] MEDS ORDERED: NITROGLYCERIN SL 0.4 MG/TAB TAB SL PRN (22:57)
[2024-11-24] MEDS ORDERED: POLYETHYLENE (MIRALAX) 17 GM PACK PO PRN (22:57)
[2024-11-24] MEDS ORDERED: ACETAMINOPHEN 325 MG TAB PO PRN (22:57)
[2024-11-24] MEDS ORDERED: ALBUTEROL HFA 8 GM INHALER INH PRN (22:57)
[2024-11-24] MEDS ORDERED: LORazepam 2 MG/1 ML VIAL IV PRN (22:57)
[2024-11-25] MEDS: METOPROLOL TARTRATE 25 MG TAB PO SCH (00:08)
[2024-11-25] MEDS: GABAPENTIN 300 MG CAP PO SCH (00:08)
[2024-11-25 03:48] LABS: Basophils # (auto) 0.03 K/uL (0.00-0.20); Basophils % (auto) 0.7 %; Eosinophils # (auto) 0.11 K/uL (0.00-0.50); Eosinophils % (auto) 2.7 %; Hematocrit (blood only) 36.6 % (42.0-52.0); Hemoglobin 12.5 g/dl (14.0-18.0); Immature Granulocytes # (auto) 0.02 K/uL (0.01-0.20); Immature Granulocytes % (auto) 0.5 %; Lymphocytes % (auto) 31.6 %; Mean Corpuscular Hemoglobin 31.6 pg (25.0-34.0); Mean Corpuscular Hgb Conc 34.2 g/dL (32.0-36.0); Mean Corpuscular Volume 92.4 fL (80.0-100.0); Mean Platelet Volume 9.6 fL (9.4-12.4); Monocytes # (auto) 0.61 K/uL (0.11-0.59); Monocytes % (auto) 14.8 %; Neutrophils # (auto) 2.04 K/uL (1.40-6.50); Neutrophils % (auto) 49.7 %; Platelet Count 209 K/uL (130-400); RDW Coefficient of Variation 15.2 % (11.5-14.5); RDW Standard Deviation 51.2 fL (36.4-46.3); Red Blood Count 3.96 M/uL (4.70-6.10); White Blood Count 4.11 K/ul (4.8-10.8)
[2024-11-25 04:06] LABS: BUN Creatinine Ratio 20.3 (10-20); Calcium 9.2 mg/dl (8.6-10.3); Creatinine Clr Calc Pharmacy 84.3 ml/min; Magnesium 1.8 mg/dl (1.7-2.4); Potassium 3.5 mmol/L (3.5-5.1)
[2024-11-25 04:12] LABS: Troponin I High Sensitivity 35.6 pg/ml (0-20)
[2024-11-25 04:21] LABS: ANTI-Xa, UFH(UnfractionatedHep 0.41 IU/ml (0.3-0.7)
--- OUTSIDE RECORDS SUMMARY | 2024-11-25 05:23 | External Medical Summary | Summary of Care ---
Author Name Unknown Organization [facility] Address [address] [place] [address] Phone [phone] Care Team Providers Care Product Management Internship Name Role Phone Rashmi Lindo MD Primary Care Provider + Reason for Visit * Reason Onset Date Comments Other 05/14/2024 Encounter Details Date Type Department Care Team (Late st Contact Info) Description 05/14/2024 Telephone General Internal Medicine [facility] [address] [place] [address] [facility] [address] [facility] [address] Other Allergies Active Allergy Reactions Criticality Noted Date Comments Alex Inhibitors 12/24/2012 Adverse reaction Lisinopril High 09/17/2019 documented as of this encounter (statuses as of 08/13/2024) Medications Medication Sig Dispensed Refills Start Date End Date Status MILK THISTLE 1000 MG PO CAPS Take 1 Capsule by mouth in the morning. Active SURGICAL COMPRESSION STOCKING 20 to 30mm knee high. 1 Each 5 08/29/2015 Active Multiple Vitamins-Minerals (MULTIVITAMIN ADULTS) TABS Take by mouth. 11/26/2018 Active polyethylene glycol 3350 (MIRALAX) packetIndications:as needed 1 Packet daily as needed for Constipation. Active fish oil concentrate (OMEGA-3) 1000 MG CAPSIndications:Hype rlipidemia Take by mouth 1,200 mg 2 times a day . 60 Cap 5 09/16/2019 Active Acetaminophen 500 MG Oral Tablet (Tylenol) Take 2 Tablets by mouth every 6 hours as needed. Active Clindamycin Phosphate 1 % External GelIndications:Other acne APPLY TOPICALLY TO AFFECTED AREA OF SKIN TWICE DAILY 30 g 09/29/2022 Active Triamcinolone Acetonide 0.1 % External Ointment (Aristocort)Indicati ons:Venous stasis dermatitis of left lower extremity APPLY TOPICALLY TO AFFECTED AREA 2 TIMES A DAY 60 g 1 10/01/2022 Active Clindamycin Phosphate 1 % External GelIndications:Other acne APPLY TOPICALLY TO AFFECTED AREA 2 TIMES A DAY DIRECTED 30 g 5 10/01/2022 Active Fluticasone-Salmeter ol 250-50 MCG/ACT Inhalation Aerosol Powder Breath Activated (Advair Diskus) Inhale 1 Puff by mouth in the morning and 1 Puff before bedtime. 60 Each 3 03/03/2024 Active hydroCHLOROthiazide 25 MG Oral Tablet (Hydrodiuril)Indicat ions:HTN, goal below 140/90 TAKE 1 TABLET BY MOUTH IN THE MORNING 90 Tablet 3 05/08/2024 Active documented as of this encounter (statuses as of 08/13/2024) Active Problems Problem Noted Date Diagnosed Date Food insecurity 03/25/2023 Overview: Per [facility] Protocol ASCVD (arteriosclerotic cardiovascular disease) 03/14/2021 Foot drop, left foot 03/14/2021 Benign hypertension with CKD (chronic kidney disease) stage III 03/14/2021 Unspecified asthma, uncomplicated 03/14/2021 Benign hypertension with stage 3a chronic kidney disease 02/21/2021 Overview: Per CKD protocol Anxiety 02/13/2018 Prediabetes 11/26/2017 Overview: Per Prediabetes protocol #1 HTN, GOAL BELOW 140/90 09/01/2009 Overview: Modified per HTN protocol #16. ADVANCE DIRECTIVE INFORMATION 09/08/2007 Overview: No, Advance Directive brochure given to patient. Diverticulitis of colon 05/08/2007 History of tobacco use Overview: 5 yrs Other specified forms of hearing loss Overview: lt ear complete loss of hearing result severe thraot infection Backache Other hydrocele Overview: lt ICD-10 update of inactive term documented as of this encounter (statuses as of 08/13/2024) Resolved Problems Problem Noted Date Diagnosed Date Resolved Date Fecal impaction 03/14/2021 03/03/2024 Benign hypertension with CKD (chronic kidney disease) stage III 08/04/2020 02/23/2021 Overview: Per CKD protocol Alcohol dependence with with drawal, uncomplicated 04/29/2020 03/03/2024 Alcoholic cirrhosis of liver without ascites 0 03/03/2024 HTN, goal to be determined 1 11/05/2008 Overview: Modified per HTN protocol #16. Acute pharyngitis 02/24/2009 Overview: Resolved per Benign Acute Dxs Protocol Diverticulitis of colon 10/15 Overview: Resolved per Duplicate Protocol #2. HTN, goal to be determined 0 11/11/2008 Overview: Resolved per Duplicate Protocol #2. documented as of this encounter (statuses as of 08/13/2024) Immunizations Name Administration Dates Next Due Covid-19 Ad26, Single Dose (Sultana/J&J) 021 Hepatitis B, 20+ yrs 03/29/2023,02/26/2023 Pneumococcal Conjugate Vacc, 13 Valent (Prevnar) 02/26/2023 Pneumococcal Polysaccharide PPV23 (Pneumovax) 08/09/2020 Seasonal Influenza, PF, 6 M & above, IM , (FluLaval or Fluzone) 07/07/2020,09/01/2019 Seasonal Influenza, Quadriva lent, No Preserve, IM 07/04/2018,07/01/2017,08/12/2015 Seasonal Influenza, Quadriva lent, No Preserve, Mdck 07/04/2018 TDAP (age 10 and older)(Boostrix) 03/27/2018 TDAP, Age 7 and older, IM (Adacel) 08/30/2008 Zoster Vaccine Recombinant (Shingrix) 12/05/2018 ,07/04/2018 documented as of this encounter Social History Tobacco Use Types Packs/Day Years Used Date Smoking Tobacco: Former Cigarettes 1 2 0 12/12/2008 - 12/12/2010 Smokeless Tobacco: Never Comments:smokes 5-6 yr 3/4 p pd Alcohol Use Standard Drinks/Week Comments Yes 0 (1 standard drink = 0.6 oz pure alcohol) beer 3-4 days a week 6 pack each time PHQ-2 Answer Date Recorded PHQ Adult Total Score 2 02/26/2023 Hunger Vital Sign Answer Date Recorded Within the past 12 months, y ou worried that your food would run out before you got the money to buy more. Sometimes true Within the past 12 months, t he food you bought just didn't last and you didn't have money to get more. Sometimes true Sex and Gender Information Value Date Recorded Sex Assigned at Male 05/08/2019 11:41 AM EDT Gender Identity Male 05/08/2019 11:41 AM EDT Sexual Orientation Straight 05/08/2019 11 :41 AM EDT Job Start Date Occupation Industry Not on file Not on file Not on file documented as of this encounter Miscellaneous Notes * Telephone Encounter - Ben Vivas [employer]ARM Tech - 05/14/2024 9:48 AM EDT Verified for [facility] that pt was last seen in office on 03/03/2024 and has scheduled again for next year 03/04/2025. They needed to confirm for filling control substance medication. Thank You, Ben Vivas [facility] [employer] 05/14/2024, 9:49 AM documented in this encounter Plan of Treatment Upcoming Encounters Date Type Department Care Team (Late st Contact Info) Description 03/04/2025 10:00 AM EDT Office Visit General Internal Medicine [place] [facility] [address] [place] [id number] Rashmi Lindo MD [address] [place] [id number] Scheduled Procedures Name Priority Associated Diagnoses Date/Ti me ESOPHAGOGASTRODUODENOSCOPY ( EGD), FLEXIBLE, TRANSORAL, DIAGNOSTIC Recall Cirrhosis (HCC) COLONOSCOPY FLEXIBLE PROXIMAL DIAGNOSTIC Recall History of colon polyps Health Maintenance Due Date Last Done Comments Cologuard 2009 Fecal Occult Blood Test 2009 Sigmoidoscopy 2009 Hepatitis B Vaccine (3 of 3 - 19+ 3-dose series) 08/29/2023 03/29/2023, 02/26/2023 CKD HGB USE SMARTSET 55774 02/20/202402/19, 02/19/2023, 12/28/2022, Additional history exists CKD PHOS USE SMARTSET [id number] 02/27/202402/11, 07/27/2022, 03/14/2021 Depression Screening 02/27/2024 02/26/2023 HbA1c 02/27/2024 02/26/2023, 02/0 05/2022, 03/14/2021, Additional history exists GFR 05/22/2024 11/22/2023, 02/11, 07/27/2022, Additional history exists Colonoscopy 06/10/2024 06/10/2019, 05/15, 10/29/2007, Additional history exists Colorectal Cancer Screening 06/10/2024 COVID-19 Vaccine ( season) 2024 03/15/2021 Influenza Vaccine (FLU shot) (#1) 2024 07/07/2020, 09/01/2019, 07/04/2018, Additional history exists Albumin/Creatinine Ratio 11/22/2024 024, 07/27/2022, 08/10/2020 DTap/Tdap Vaccines (3 - Td or Tdap) 03/27/2028 03/27/2018, 08/30/2008 Pneumococcal Vaccine: Pediatrics (0 to 5 Years) and At-Risk Patients (6 to 64 Years) (3 of 3 - PPSV23 or PCV20) 2029 02/26/2023, 08/09/2020 Zoster Vaccines Completed 12/05/2018, 07/04/2018 RETIRED - COLONOSCOPY-EVERY 5 YRS AGES 18-100 Discontinued 06/10/2019, 06/10/2019, 10/29/2007, Additional history exists HPV (Gardasil) Vaccine Aged Out No lo nger eligible based on patient's age to complete this topic MENINGOCOCCAL (MENACTRA/MENVEO) Aged Out No longer eligible based on patient's age to complete this topic documented as of this encounter Medical Devices Not on filedocumented as of this encounter Care Teams Product Management Internship Relationship Specialty Start Date End Date Rashmi Lindo MD [address] [facility] [place] [address] PCP - General Internal Medicine 06/11/14 documented as of this encounter
--- OUTSIDE RECORDS SUMMARY | 2024-11-25 05:23 | External Medical Summary | Summary of Care ---
Author Name Unknown Organization [facility] Address [address] [place] [address] Phone [phone] Care Team Providers Care Planning Advisor Name Role Phone Rashmi Lindo MD Primary Care Provider + Reason for Visit * Reason Onset Date Comments Medication Refill 09/08/2024 Encounter Details Date Type Department Care Team (Late st Contact Info) Description 09/08/2024 Refill General Internal Medicine [facility] [address] [facility] [place] [address] Rashmi Lindo MD [address] [place] [address] Anxiety Allergies Active Allergy Reactions Criticality Noted Date Comments Alex Inhibitors 12/24/2012 Adverse reaction Lisinopril High 09/17/2019 documented as of this encounter (statuses as of 09/08/2024) Medications MILK THISTLE 1000 MG PO CAPS Take 1 Capsule by mouth in the morning. Active SURGICAL COMPRESSION STOCKING 20 to 30mm knee high. 1 Each 5 5 Active Multiple Vitamins-Mineral s (MULTIVITAMIN ADULTS) TABS Take by mouth. 9 Active polyethylene glycol 3350 (MIRALAX) packetIndication s:as needed 1 Packet daily as needed for Constipation. Active fish oil concentrate (OMEGA-3) 1000 MG CAPSIndications: Hyperlipidemia Take by mouth 1,200 mg 2 times a day . 60 Cap 5 9 Active Acetaminophen 500 MG Oral Tablet (Tylenol) Take 2 Tablets by mouth every 6 hours as needed. Active Clindamycin Phosphate 1 % External GelIndications:O ther acne APPLY TOPICALLY TO AFFECTED AREA OF SKIN TWICE DAILY 30 g 2 Active Triamcinolone Acetonide 0.1 % External Ointment (Aristocort)Ruba cations:Venous stasis dermatitis of left lower extremity APPLY TOPICALLY TO AFFECTED AREA 2 TIMES A DAY 60 g 1 2 Active Clindamycin Phosphate 1 % External GelIndications:O ther acne APPLY TOPICALLY TO AFFECTED AREA 2 TIMES A DAY DIRECTED 30 g 5 2 Active Fluticasone-Salm eterol 250-50 MCG/ACT Inhalation Aerosol Powder Breath Activated (Advair Diskus) Inhale 1 Puff by mouth in the morning and 1 Puff before bedtime. 60 Each 3 4 Active hydroCHLOROthiaz mahendra 25 MG Oral Tablet (Hydrodiuril)Ind ications:HTN, goal below 140/90 TAKE 1 TABLET BY MOUTH IN THE MORNING 90 Tablet 3 4 Active Sildenafil Citrate 50 MG Oral Tablet TAKE 1 TABLET BY MOUTH ONCE FOR 1 DOSE 1-4 HOURS BEFORE INTERCOURSE, NO MORE THAN 1 DOSE IN 24 HOURS 10 Tablet 3 4 Active Albuterol Sulfate HFA 108 (90 Base) MCG/ACT Inhalation Aerosol Solution INHALE 2 PUFFS BY MOUTH 4 TIMES DAILY NEEDED FOR SHORTNESS OF BREATH 18 g 1 4 Active Amoxicillin 500 MG Oral Capsule (Amoxil)Indicati ons:Tooth pain Take 1 Capsule by mouth in the morning and 1 Capsule at noon and 1 Capsule before bedtime. 30 Capsule 4 Active Gabapentin 300 MG Oral Capsule (Neurontin)Indic ations:Pain of right upper arm TAKE 1 CAPSULE BY MOUTH IN THE MORNING, THEN 1 CAP AT NOON AND 1 CAP AT BEDTIME 270 Capsule 4 Active Fenofibrate 160 MG Oral Tablet (Lofibra)Indicat ions:Hyperlipide icci TAKE 1 TABLET BY MOUTH ONCE DAILY WITH A MEAL 90 Tablet 1 4 Active Atorvastatin Calcium 40 MG Oral Tablet (Lipitor) TAKE 1 TABLET BY MOUTH ONCE DAILY IN THE MORNING 90 Tablet 1 4 Active LORazepam 0.5 MG Oral Tablet (Ativan)Indicati ons:Anxiety TAKE 1 TABLET BY MOUTH AT BEDTIME NEEDED FOR ANXIETY 90 Tablet 4 Active documented as of this encounter (statuses as of 09/08/2024) Active Problems Problem Noted Date Diagnosed Date [...] protocol #1 HTN, GOAL BELOW 140/90 09/01/2009 Overview (09/01/2009): Modified per HTN protocol #16. Diverticulitis of colon 05/08/2007 History of tobacco use Overview (08/23/2008): 5 yrs Other specified forms of hearing loss Overview (08/23/2008): lt ear complete loss of hearing result severe thraot infection Backache Other hydrocele Overview (07/15/2017): lt ICD-10 update of inactive term documented as of this encounter (statuses as of 09/08/2024) Resolved Problems Problem Noted Date Diagnosed Date Resolved Date Fecal impaction 03/14/2021 03/03/2024 Benign hypertension with CKD (chronic kidney disease) stage III 08/04/2020 02/23/2021 Overview: Per CKD protocol Alcohol dependence with with drawal, uncomplicated 04/29/2020 03/03/2024 Alcoholic cirrhosis of liver without ascites 0 03/03/2024 ADVANCE DIRECTIVE INFORMATION 09/08/2007 08/17/2024 Overview (09/08/2007): No, Advance Directive brochure given to patient. HTN, goal to be determined 1 11/05/2008 Overview (09/05/2009): Modified per HTN protocol #16. Acute pharyngitis 02/24/2009 Overview (02/24/2009): Resolved per Benign Acute Dxs Protocol Diverticulitis of colon 10/15 Overview (11/11/2008): Resolved per Duplicate Protocol #2. HTN, goal to be determined 0 11/11/2008 Overview (11/11/2008): Resolved per Duplicate Protocol #2. documented as of this encounter (statuses as of 09/08/2024) Immunizations Name Administration Dates Next Due Covid-19 [...] Assigned at Male 05/08/2019 11:41 AM EDT Legal Sex Male 5:07 AM EST Gender Identity Male 05/08/2019 11:41 AM EDT Sexual Orientation Straight 05/08/2019 11 :41 AM EDT documented as of this encounter Miscellaneous Notes * Telephone Encounter - An Nevarez CPhT - 09/08/2024 8:27 AM EST Called [facility]- they are filling for pt Pt calling to request lorazepam. Informed pt that RX is available at their pharmacy. Pt verbalized understanding and stated they will check with their pharmacy regarding this medication. Thank you, An Nevarez CPhT II Video Game Developer [facility] ([facility]) 09/08/2024, 8:30 AM documented in this encounter Plan of Treatment Upcoming Encounters Date Type Department Care Team (Late st Contact Info) Description 03/04/2025 10:00 AM EDT Office Visit General Internal Medicine [facility] [place] [address] [place], [place] [address] Rashmi Lindo MD [address] [place] [address] Scheduled Procedures Name Priority Associated Diagnoses Date/Ti me ESOPHAGOGASTRODUODENOSCOPY ( EGD), FLEXIBLE, TRANSORAL, DIAGNOSTIC Recall Cirrhosis (HCC) COLONOSCOPY FLEXIBLE PROXIMAL DIAGNOSTIC Recall History of colon polyps Health Maintenance Due Date Last Done Comments Cologuard 2009 Fecal Occult Blood Test 2009 Sigmoidoscopy 2009 Hepatitis B Vaccine (3 of 3 - 19+ 3-dose series) 08/29/2023 03/29/2023, 02/26/2023 CKD HGB USE SMARTSET 30490 02/20/202402/19, 02/19/2023, 12/28/2022, Additional history exists CKD PHOS USE SMARTSET 05456 02/27/202402/11, 07/27/2022, 03/14/2021 Depression Screening 02/27/2024 02/26/2023 HbA1c 02/27/2024 02/26/2023, 02/05/2022, 03/14/2021, Additional history exists GFR 05/22/2024 11/22/2023, [...] Not on filedocumented as of this encounter Visit Diagnoses Diagnosis Anxiety Anxiety state, unspecified documented in this encounter Care Teams Planning Advisor Relationship Specialty Start Date End Date Rashmi Lindo MD [address] [place] [address] PCP - General Internal Medicine 06/11/14 documented as of this encounter
--- OUTSIDE RECORDS SUMMARY | 2024-11-25 05:23 | External Medical Summary | Summary of Care ---
Author Name Unknown Organization [facility] Address [address] [place] [address] Phone [phone] Care Team Providers Care Operation Supervisor Name Role Phone Cody Lindo MD Primary Care Provider + Reason for Visit * Reason Onset Date Comments Medication Refill 08/10/2024 Encounter Details Date Type Department Care Team (Late st Contact Info) Description 08/10/2024 Refill General Internal Medicine [facility] [address] [facility] [place] [address] Cody Lindo MD [address] [place] [address] Anxiety Allergies Active Allergy Reactions Criticality Noted Date Comments Alex Inhibitors 12/24/2012 Adverse reaction Lisinopril High 09/17/2019 documented as of this encounter (statuses as of 08/11/2024) Medications Medication Sig Dispensed Refills Start Date End Date Status MILK THISTLE 1000 MG PO CAPS Take 1 Capsule by mouth in the morning. Active SURGICAL COMPRESSION STOCKING 20 to 30mm knee high. 1 Each 5 08/29/2015 Active Multiple Vitamins-Minerals (MULTIVITAMIN ADULTS) TABS Take by mouth. 11/26/2018 Active polyethylene glycol 3350 (MIRALAX) packetIndications :as needed 1 Packet daily as needed for Constipation. Active fish oil concentrate (OMEGA-3) 1000 MG CAPSIndications:H yperlipidemia Take by mouth 1,200 mg 2 times a day . 60 Cap 5 09/16/2019 Active Acetaminophen 500 MG Oral Tablet (Tylenol) Take 2 Tablets by mouth every 6 hours as needed. Active Clindamycin Phosphate 1 % External GelIndications:Ot her acne APPLY TOPICALLY TO AFFECTED AREA OF SKIN TWICE DAILY 30 g 09/29/2022 Active Triamcinolone Acetonide 0.1 % External Ointment (Aristocort)Indic ations:Venous stasis dermatitis of left lower extremity APPLY TOPICALLY TO AFFECTED AREA 2 TIMES A DAY 60 g 1 10/01/2022 Active Clindamycin Phosphate 1 % External GelIndications:Ot her acne APPLY TOPICALLY TO AFFECTED AREA 2 TIMES A DAY DIRECTED 30 g 5 10/01/2022 Active Fluticasone-Salme terol 250-50 MCG/ACT Inhalation Aerosol Powder Breath Activated (Advair Diskus) Inhale 1 Puff by mouth in the morning and 1 Puff before bedtime. 60 Each 3 03/03/2024 Active hydroCHLOROthiazi de 25 MG Oral Tablet (Hydrodiuril)Ruba cations:HTN, goal below 140/90 TAKE 1 TABLET BY MOUTH IN THE MORNING 90 Tablet 3 05/08/2024 Active Sildenafil Citrate 50 MG Oral Tablet TAKE 1 TABLET BY MOUTH ONCE FOR 1 DOSE 1-4 HOURS BEFORE INTERCOURSE, NO MORE THAN 1 DOSE IN 24 HOURS 10 Tablet 3 06/12/2024 Active Albuterol Sulfate HFA 108 (90 Base) MCG/ACT Inhalation Aerosol Solution INHALE 2 PUFFS BY MOUTH 4 TIMES DAILY NEEDED FOR SHORTNESS OF BREATH 18 g 1 06/16/2024 Active Amoxicillin 500 MG Oral Capsule (Amoxil)Indicatio ns:Tooth pain Take 1 Capsule by mouth in the morning and 1 Capsule at noon and 1 Capsule before bedtime. 30 Capsule 07/02/2024 Active Fenofibrate 160 MG Oral Tablet (Lofibra)Indicati ons:Hyperlipidemi a TAKE 1 TABLET BY MOUTH ONCE DAILY WITH A MEAL 90 Tablet 1 08/10/2024 Active Atorvastatin Calcium 40 MG Oral Tablet (Lipitor) TAKE 1 TABLET BY MOUTH ONCE DAILY IN THE MORNING 90 Tablet 1 08/10/2024 Active LORazepam 0.5 MG Oral Tablet (Ativan)Indicatio ns:Anxiety TAKE 1 TABLET BY MOUTH AT BEDTIME NEEDED FOR ANXIETY 90 Tablet 08/11/2024 Active LORazepam 0.5 MG Oral Tablet (Ativan)Indicatio ns:Anxiety TAKE 1 TABLET BY MOUTH AT BEDTIME NEEDED FOR ANXIETY 90 Tablet 06/16/2024 08/10/2024 Discontinue d(Refill) documented as of this encounter (statuses as of 08/11/2024) Active Problems Problem Noted Date Diagnosed Date [...] as of this encounter (statuses as of 08/11/2024) Resolved Problems Problem Noted Date Diagnosed Date [...] as of this encounter (statuses as of 08/11/2024) Immunizations Name Administration Dates Next Due Covid-19 [...] encounter Miscellaneous Notes * Telephone Encounter - Cody Lindo MD - 08/11/2024 1:10 PM EDTSigned Prescriptions: Disp Refills LORazepam 0.5 MG Oral Tablet (Ativan) 90 Tab*0 Sig: TAKE 1 TABLET BY MOUTH AT BEDTIME NEEDED FOR ANXIETY Authorizing Provider: CODY LINDO * Telephone Encounter - Jannie Flannery [facility] - 08/11/2024 12:27 PM EDTPending Prescriptions: Disp Refills LORazepam 0.5 MG Oral Tablet (Ativan) 90 Tab*0 Sig: TAKE 1 TABLET BY MOUTH AT BEDTIME NEEDED FOR ANXIETY * Telephone Encounter - Jannie Flannery [facility] - 08/11/2024 12:24 PM EDT I have reviewed the patients controlled substance dispensing history in the Prescription Drug Monitoring Program in compliance with the [facility] regulations before prescribing a controlled substance. PDMP checked on 08/11/2024. Pending Prescriptions: Disp Refills LORazepam 0.5 MG Oral Tablet (Ativan) 90 Tab*0 Sig: TAKE 1 TABLET BY MOUTH AT BEDTIME NEEDED FOR ANXIETY Last Visit: 03/03/2024 (in office), Visit date not found (telemedicine) Next Visit: 03/04/2025 Date medication was last filled: 07/13/24 Date medication is due for refill: 08/11/24 Pharmacy: [facility] [address] [place] [address] KIERSTEN ARCHULETA Is this request for a controlled substance? Yes and Urine Drug Screen Not completed Toxicology results: Results for orders placed or performed in visit on 05/08/19 OPIOIDS/BENZO COMPLIANCE MONITORING W/INTERP Result Value COMPLIANCE INTERP (NOTE) URINE DRUG SCREEN RESULT Amphetamine NEGATIVE Benzodiazepines REFER TO CONFIRMATION RESULT (A) Cannabinoids NEGATIVE Cocaine Metabolite NEGATIVE HYDROCODONE NEGATIVE METHADONE METABOLITE NEGATIVE Morphine / Codeine NEGATIVE OXYCODONE NEGATIVE COMMENT THE ABOVE SCREENING RESULTS ARE PRESUMPTIVE AND CAN ONLY BE USED FOR MEDICAL PURPOSES. CONFIRMATORY TESTING IS AVAILABLE UPON REQUEST. Cutoff Concentration URINE VALID INTERP NORMAL CREATININE RACHEAL 39 Please approve if appropriate. Thank you, Jannie Flannery PharmD Clinical Pharmacist [facility] ([facility]) 08/11/24 12:24 PM [phone] * Telephone Encounter - Gareth Warner police chief deputy - 08/10/2024 8:33 AM EDT Did you pend patient's preferred pharmacy and medication before forwarding?yes Pharmacy: [facility] [address] [place] [address] Leon ARCHULETA Pending Prescriptions: Disp Refills LORazepam 0.5 MG Oral Tablet (Ativan) 90 Tab*0 Sig: TAKE 1 TABLET BY MOUTH AT BEDTIME NEEDED FOR ANXIETY Last Visit: 03/03/2024 (in office), Visit date not found (telemedicine) Next Visit: 03/04/2025 If no future appointments scheduled, and last appointment is greater than a year ago, please schedule patient for a follow-up appointment Last date the medication was ordered: 06/16/24 Is this request for a controlled substance?Yes, What was the last refill date 06/16/24 w/ quantity 90 and dosage 0.5 mg and Urine Drug Screen was completed Urine Drug Screen: Results for orders placed or performed in visit on 05/08/19 OPIOIDS/BENZO COMPLIANCE MONITORING W/INTERP Result Value COMPLIANCE INTERP (NOTE) URINE DRUG SCREEN RESULT Amphetamine NEGATIVE Benzodiazepines REFER TO CONFIRMATION RESULT (A) Cannabinoids NEGATIVE Cocaine Metabolite NEGATIVE HYDROCODONE NEGATIVE METHADONE METABOLITE NEGATIVE Morphine / Codeine NEGATIVE OXYCODONE NEGATIVE COMMENT THE ABOVE SCREENING RESULTS ARE PRESUMPTIVE AND CAN ONLY BE USED FOR MEDICAL PURPOSES. CONFIRMATORY TESTING IS AVAILABLE UPON REQUEST. Cutoff Concentration URINE VALID INTERP NORMAL CREATININE RACHEAL 39 Patient Phone Numbers Labs: Lab Results Component Value Date/Time CREAT 0.9 11/22/2023 09:04 AM CREAT 1.5 (H) 08/09/2020 12:50 PM POTASSIUM 4.2 11/22/2023 09:04 AM POTASSIUM 3.2 (L) 08/09/2020 12:50 PM TSH 1.23 07/05/2017 09:02 AM LDL 49 11/22/2023 09:04 AM LDL 103 08/09/2020 12:50 PM LDL NOT APPLICABLE 08/09/2020 12:50 PM ALT 45 11/22/2023 09:04 AM ALT 34 08/09/2020 12:50 PM HGBA1C 5.5 02/26/2023 12:13 PM HGBA1C 5.8 (H) 08/09/2020 12:50 PM documented in this encounter Plan of Treatment Upcoming Encounters Date Type Department Care Team (Late st Contact Info) Description 03/04/2025 10:00 AM EDT Office Visit General Internal Medicine [facility] [place] [address] [place] [address] Cody Lindo MD [address] [place] [address] Scheduled Procedures Name Priority Associated Diagnoses Date/Ti me ESOPHAGOGASTRODUODENOSCOPY ( EGD), FLEXIBLE, TRANSORAL, DIAGNOSTIC Recall Cirrhosis (HCC) COLONOSCOPY FLEXIBLE PROXIMAL DIAGNOSTIC Recall History of colon polyps Health Maintenance Due Date Last Done Comments Cologuard 2009 Fecal Occult Blood Test 2009 Sigmoidoscopy 2009 Hepatitis B Vaccine (3 of 3 - 19+ 3-dose series) 08/29/2023 03/29/2023, 02/26/2023 CKD HGB USE SMARTSET 66569 02/20/202402/19, 02/19/2023, 12/28/2022, Additional history exists CKD PHOS USE SMARTSET 21178 02/27/202402/11, 07/27/2022, 03/14/2021 Depression Screening 02/27/2024 02/26/2023 [...] unspecified documented in this encounter Care Teams Operation Supervisor Relationship Specialty Start Date End Date Cody Lindo MD [address] [facility] [place] [address] PCP - General Internal Medicine 06/11/14 documented as of this encounter
--- OUTSIDE RECORDS SUMMARY | 2024-11-25 05:23 | External Medical Summary | Summary of Care ---
Author Name Unknown Organization [facility] Address [address] [facility] [place] [address] Phone [phone] Care Team Providers Care Certified Energy Manager Name Role Phone Cody Lindo MD Primary Care Provider + Reason for Visit * Reason Comments eRx-Medication Refill Encounter Details Date Type Department Care Team (Late st Contact Info) Description 11/03/2024 Refill General Internal Medicine [facility] [address] [facility] [place] [address] Cody Lindo MD [address] [place] [address] Pain of right upper arm Allergies Active Allergy Reactions Criticality Noted Date Comments Alex Inhibitors 12/24/2012 Adverse reaction Lisinopril High 09/17/2019 documented as of this encounter (statuses as of 11/03/2024) Medications MILK THISTLE 1000 MG PO CAPS Take 1 Capsule by mouth in the morning. Active SURGICAL COMPRESSION STOCKING 20 to 30mm knee high. 1 Each 5 08/29/20 15 Active Multiple Vitamins-Minera ls (MULTIVITAMIN ADULTS) TABS Take by mouth. 11/26/19 19 Active polyethylene glycol 3350 (MIRALAX) packetIndicatio ns:as needed 1 Packet daily as needed for Constipation. Active fish oil concentrate (OMEGA-3) 1000 MG CAPSIndications :Hyperlipidemia Take by mouth 1,200 mg 2 times a day . 60 Cap 5 09/16/20 19 Active Acetaminophen 500 MG Oral Tablet (Tylenol) Take 2 Tablets by mouth every 6 hours as needed. Active Clindamycin Phosphate 1 % External GelIndications: Other acne APPLY TOPICALLY TO AFFECTED AREA OF SKIN TWICE DAILY 30 g 09/29/20 22 Active Triamcinolone Acetonide 0.1 % External Ointment (Aristocort)Ind ications:Venous stasis dermatitis of left lower extremity APPLY TOPICALLY TO AFFECTED AREA 2 TIMES A DAY 60 g 1 10/01/20 22 Active Clindamycin Phosphate 1 % External GelIndications: Other acne APPLY TOPICALLY TO AFFECTED AREA 2 TIMES A DAY DIRECTED 30 g 5 10/01/20 22 Active hydroCHLOROthia zide 25 MG Oral Tablet (Hydrodiuril)In dications:HTN, goal below 140/90 TAKE 1 TABLET BY MOUTH IN THE MORNING 90 Tablet 3 05/08/20 24 Active Sildenafil Citrate 50 MG Oral Tablet TAKE 1 TABLET BY MOUTH ONCE FOR 1 DOSE 1-4 HOURS BEFORE INTERCOURSE, NO MORE THAN 1 DOSE IN 24 HOURS 10 Tablet 3 06/12/20 24 Active Amoxicillin 500 MG Oral Capsule (Amoxil)Indicat ions:Tooth pain Take 1 Capsule by mouth in the morning and 1 Capsule at noon and 1 Capsule before bedtime. 30 Capsule 07/02/20 24 Active Fenofibrate 160 MG Oral Tablet (Lofibra)Indica tions:Hyperlipi demia TAKE 1 TABLET BY MOUTH ONCE DAILY WITH A MEAL 90 Tablet 1 08/10/20 24 Active Atorvastatin Calcium 40 MG Oral Tablet (Lipitor) TAKE 1 TABLET BY MOUTH ONCE DAILY IN THE MORNING 90 Tablet 1 08/10/20 24 Active LORazepam 0.5 MG Oral Tablet (Ativan)Indicat ions:Anxiety TAKE 1 TABLET BY MOUTH AT BEDTIME NEEDED FOR ANXIETY 90 Tablet 08/11/20 24 Active Albuterol Sulfate HFA 108 (90 Base) MCG/ACT Inhalation Aerosol Solution INHALE 2 PUFFS BY MOUTH 4 TIMES DAILY NEEDED FOR SHORTNESS OF BREATH 18 g 3 10/09/20 24 Active Fluticasone-Koko meterol 250-50 MCG/ACT Inhalation Aerosol Powder Breath Activated (Advair Diskus) INHALE 1 PUFF BY MOUTH ONCE DAILY IN THE MORNING AND 1 PUFF ONCE DAILY BEFORE BEDTIME 60 Each 3 10/19/19 25 Active Gabapentin 300 MG Oral Capsule (Neurontin)Ruba cations:Pain of right upper arm TAKE 1 CAPSULE BY MOUTH IN THE MORNING AND 1 AT NOON AND 1 AT BEDTIME 270 Capsule 1 11/03/19 25 Active Gabapentin 300 MG Oral Capsule (Neurontin)Ruba cations:Pain of right upper arm TAKE 1 CAPSULE BY MOUTH IN THE MORNING, THEN 1 CAP AT NOON AND 1 CAP AT BEDTIME 270 Capsule 08/10/20 24 025 Discontinued documented as of this encounter (statuses as of 11/03/2024) Active Problems Problem Noted Date Diagnosed Date [...] as of this encounter (statuses as of 11/03/2024) Resolved Problems Problem Noted Date Diagnosed Date [...] as of this encounter (statuses as of 11/03/2024) Immunizations Name Administration Dates Next Due Covid-19 [...] Telephone Encounter - Cody Lindo MD - 11/03/2024 1:39 PM ESTSigned Prescriptions: Disp Refills Gabapentin 300 MG Oral Capsule (Neurontin) 270 Ca*1 Sig: TAKE 1 CAPSULE BY MOUTH IN THE MORNING AND 1 AT NOON AND 1 AT BEDTIME Authorizing Provider: CODY LINDO * Telephone Encounter - Veronica Pink [facility] - 11/03/2024 1:06 PM ESTPending Prescriptions: Disp Refills Gabapentin 300 MG Oral Capsule (Neurontin) 270 Ca*1 Sig: TAKE 1 CAPSULE BY MOUTH IN THE MORNING AND 1 AT NOON AND 1 AT BEDTIME * Telephone Encounter - Veronica Pink, [facility] - 11/03/2024 1:05 PM EST [facility] is currently not authorized to approve refills for the pended medication(s) per refill protocol. Please approve if appropriate. Did you pend patient's preferred pharmacy and medication before forwarding?yes Pharmacy: [facility] [address] KIERSTEN ARCHULETA Pending Prescriptions: Disp Refills Gabapentin 300 MG Oral Capsule (Neurontin) 270 Ca*1 Sig: TAKE 1 CAPSULE BY MOUTH IN THE MORNING AND 1 AT NOON AND 1 AT BEDTIME Last Visit: 03/03/2024 (in office), Visit date not found (telemedicine) Next Visit: 03/04/2025 If no future appointments scheduled, and last appointment is greater than a year ago, please schedule patient for a follow-up appointment Last date the medication was ordered: 08/10/24 Is this request for a controlled substance?No Urine Drug Screen: Results for orders placed [...] PM HGBA1C 5.8 (H) 08/09/2020 12:50 PM Thank You, Veronica Pink [facility] Pharmacist Telepharmacy [phone] 11/03/2024, 1:05 PM documented in this encounter Plan of Treatment Upcoming Encounters Date Type Department Care Team (Late st Contact Info) Description 03/04/2025 10:00 AM EDT Office Visit General Internal Medicine [facility] [address] [place] [address] Cody Lindo MD [address] [facility] [place] [id number] Scheduled Procedures Name Priority Associated Diagnoses Date/Ti me ESOPHAGOGASTRODUODENOSCOPY ( EGD), FLEXIBLE, TRANSORAL, DIAGNOSTIC Recall Cirrhosis (HCC) COLONOSCOPY FLEXIBLE PROXIMAL DIAGNOSTIC Recall History of colon polyps Health Maintenance Due Date Last Done Comments Cologuard 2009 Fecal Occult Blood Test 2009 Sigmoidoscopy 2009 Hepatitis B Vaccine (3 of 3 - 19+ 3-dose series) 08/29/2023 03/29/2023, 02/26/2023 CKD HGB USE SMARTSET 88712 02/20/202402/19, 02/19/2023, 12/28/2022, Additional history exists CKD PHOS USE SMARTSET 35735 02/27/202402/11, 07/27/2022, 03/14/2021 Depression Screening 02/27/2024 02/26/2023 HbA1c 02/27/2024 02/26/2023, 02/0 05/2022, 03/14/2021, Additional history exists GFR 05/22/2024 11/22/2023, 02/11, 07/27/2022, Additional history exists Colonoscopy 06/10/2024 06/10/2019, 05/15, 10/29/2007, Additional history exists Colorectal Cancer Screening 06/10/2024 COVID-19 Vaccine ( season) 2024 03/15/2021 Influenza Vaccine (FLU shot) (#1) 2024 07/07/2020, 09/01/2019, 07/04/2018, Additional history exists Albumin/Creatinine Ratio 11/22/2024 024, 07/27/2022, 08/10/2020 Pneumococcal Vaccine: 50+ Years (3 of 3 - PCV20 or PCV21) 02/27/2028 02/26/2023, 08/09/2020 DTap/Tdap Vaccines (3 - Td or Tdap) 03/27/2028 03/27/2018, 08/30/2008 Zoster Vaccines Completed 12/05/2018, 07/04/2018 RETIRED - [...] as of this encounter Visit Diagnoses Diagnosis Pain of right upper arm Pain in limb documented in this encounter Care Teams Certified Energy Manager Relationship Specialty Start Date End Date Cody Lindo MD [address] [place], [place] [address] PCP - General Internal Medicine 06/11/14 documented as of this encounter
--- OUTSIDE RECORDS SUMMARY | 2024-11-25 05:23 | External Medical Summary | Summary of Care ---
Author Name Unknown Organization [facility] Address [address] [place] [address] Phone [phone] Care Team Providers Care Manager Community Name Role Phone Cody Lindo MD Primary Care Provider + Reason for Visit * Reason Comments eRx-Medication Refill Encounter Details Date Type Department Care Team (Late st Contact Info) Description 10/06/2024 Refill General Internal Medicine [facility] [address] [facility] [place] [address] Cody Lindo MD 200 [facility] [address] Allergies Active Allergy Reactions Criticality Noted Date Comments Alex Inhibitors 12/24/2012 Adverse reaction Lisinopril High 09/17/2019 documented as of this encounter (statuses as of 10/09/2024) Medications MILK THISTLE 1000 MG PO CAPS [...] DIRECTED 30 g 5 10/01/20 22 Active Fluticasone-Koko meterol 250-50 MCG/ACT Inhalation Aerosol Powder Breath Activated (Advair Diskus) Inhale 1 Puff by mouth in the morning and 1 Puff before bedtime. 60 Each 3 03/03/20 24 Active hydroCHLOROthia zide 25 MG Oral Tablet [...] before bedtime. 30 Capsule 07/02/20 24 Active Gabapentin 300 MG Oral Capsule (Neurontin)Ruba cations:Pain of right upper arm TAKE 1 CAPSULE BY MOUTH IN THE MORNING, THEN 1 CAP AT NOON AND 1 CAP AT BEDTIME 270 Capsule 08/10/20 24 Active Fenofibrate 160 MG Oral Tablet [...] BREATH 18 g 3 10/09/20 24 Active Albuterol Sulfate HFA 108 (90 Base) MCG/ACT Inhalation Aerosol Solution INHALE 2 PUFFS BY MOUTH 4 TIMES DAILY NEEDED FOR SHORTNESS OF BREATH 18 g 1 06/16/20 24 024 Discontinued documented as of this encounter (statuses as of 10/09/2024) Active Problems Problem Noted Date Diagnosed Date [...] as of this encounter (statuses as of 10/09/2024) Resolved Problems Problem Noted Date Diagnosed Date [...] as of this encounter (statuses as of 10/09/2024) Immunizations Name Administration Dates Next Due Covid-19 [...] encounter Miscellaneous Notes * Telephone Encounter - Ho Clark [facility] - 10/09/2024 1:58 AM ESTSigned Prescriptions: Disp Refills Albuterol Sulfate HFA 108 (90 Base) MCG/AC*18 g 3 Sig: INHALE 2 PUFFS BY MOUTH 4 TIMES DAILY NEEDED FOR SHORTNESS OF BREATHAuthorizing Provider: CODY LINDO User: HO CLARK documented in this encounter Plan of Treatment Upcoming Encounters Date Type Department Care Team (Late st Contact Info) Description 03/04/2025 10:00 AM EDT Office Visit General Internal Medicine [place] [address] [place] [address] [address] Cody Lindo MD [address] [place] [address] Scheduled Procedures Name Priority Associated Diagnoses Date/Ti me ESOPHAGOGASTRODUODENOSCOPY ( EGD), FLEXIBLE, TRANSORAL, DIAGNOSTIC Recall Cirrhosis (HCC) COLONOSCOPY FLEXIBLE PROXIMAL DIAGNOSTIC Recall History of colon polyps Health Maintenance Due Date Last Done Comments Cologuard 2009 Fecal Occult Blood Test 2009 Sigmoidoscopy 2009 Hepatitis B Vaccine (3 of 3 - 19+ 3-dose series) 08/29/2023 03/29/2023, 02/26/2023 CKD HGB USE SMARTSET 47755 02/20/202402/19, 02/19/2023, 12/28/2022, Additional history exists CKD PHOS USE SMARTSET 28549 02/27/202402/11, 07/27/2022, 03/14/2021 Depression Screening 02/27/2024 02/26/2023 [...] filedocumented as of this encounter Care Teams Manager Community Relationship Specialty Start Date End Date Cody Lindo MD 200 [facility] [place] [address] PCP - General Internal Medicine 06/11/14 documented as of this encounter
--- OUTSIDE RECORDS SUMMARY | 2024-11-25 05:23 | External Medical Summary | Summary of Care ---
Author Name Unknown Organization [facility] Address [address] [place] [address] Phone [phone] Care Team Providers Care Communications Professor Name Role Phone Cody Lindo MD Primary Care Provider + Reason for Visit * Reason Comments eRx-Medication Refill Encounter Details Date Type Department Care Team (Late st Contact Info) Description 10/15/2024 Refill General Internal Medicine [facility] 200 [facility] [place] [address] Cody Lindo MD [address] [facility] [address] Allergies Active Allergy Reactions Criticality Noted Date Comments Alex Inhibitors 12/24/2012 Adverse reaction Lisinopril High 09/17/2019 documented as of this encounter (statuses as of 10/19/2024) Medications MILK THISTLE 1000 MG PO CAPS [...] BEDTIME 60 Each 3 10/19/19 25 Active Fluticasone-Koko meterol 250-50 MCG/ACT Inhalation Aerosol Powder Breath Activated (Advair Diskus) Inhale 1 Puff by mouth in the morning and 1 Puff before bedtime. 60 Each 3 03/03/20 24 025 Discontinued documented as of this encounter (statuses as of 10/19/2024) Active Problems Problem Noted Date Diagnosed Date [...] as of this encounter (statuses as of 10/19/2024) Resolved Problems Problem Noted Date Diagnosed Date [...] as of this encounter (statuses as of 10/19/2024) Immunizations Name Administration Dates Next Due Covid-19 [...] Telephone Encounter - Cody Lindo MD - 10/19/2024 10:52 AM EST Signed Prescriptions: Disp Refills Fluticasone-Salmeterol 250-50 MCG/ACT Inha*60 Each3 Sig: INHALE 1 PUFF BY MOUTH ONCE DAILY IN THE MORNING AND 1 PUFF ONCE DAILY BEFORE BEDTIME Authorizing Provider: CODY LINDO * Telephone Encounter - Marshal Ignacio [facility] - 10/16/2024 3:10 PM EST Pending Prescriptions: Disp Refills Fluticasone-Salmeterol 250-50 MCG/ACT Inha*60 Each3 Sig: INHALE 1 PUFF BY MOUTH ONCE DAILY IN THE MORNING AND 1 PUFF ONCE DAILY BEFORE BEDTIME * Telephone Encounter - Marshal Ignacio RPh - 10/16/2024 3:10 PM EST Forwarding to provider for further evaluation. Please approve and authorize additional refills if you would like patient to continue this medication. Thanks, Marshal Ignacio, PharmD Clinical Pharmacist [facility] [phone] 10/16/2024,3:10 PM documented in this encounter Plan of Treatment Upcoming Encounters Date Type Department Care Team (Late st Contact Info) Description 03/04/2025 10:00 AM EDT Office Visit General Internal Medicine [facility] [place] [address] Cody Lindo MD 200 [facility] [address] Scheduled Procedures Name Priority Associated Diagnoses Date/Ti me ESOPHAGOGASTRODUODENOSCOPY ( EGD), FLEXIBLE, TRANSORAL, DIAGNOSTIC Recall Cirrhosis (HCC) COLONOSCOPY FLEXIBLE PROXIMAL DIAGNOSTIC Recall History of colon polyps Health Maintenance Due Date Last Done Comments Cologuard 2009 Fecal Occult Blood Test 2009 Sigmoidoscopy 2009 Hepatitis B Vaccine (3 of 3 - 19+ 3-dose series) 08/29/2023 03/29/2023, 02/26/2023 CKD HGB USE SMARTSET 62101 02/20/202402/19, 02/19/2023, 12/28/2022, Additional history exists CKD PHOS USE SMARTSET 96696 02/27/202402/11, 07/27/2022, 03/14/2021 Depression Screening 02/27/2024 02/26/2023 HbA1c 02/27/2024 02/26/2023, 02/0 05/2022, 03/14/2021, Additional history exists GFR 05/22/2024 11/22/2023, 02/11, 07/27/2022, Additional history exists Colonoscopy 06/10/2024 06/10/2019, 05/15, 10/29/2007, Additional history exists Colorectal Cancer Screening 06/10/2024 COVID-19 Vaccine (2 - season) 2024 03/15/2021 Influenza Vaccine (FLU shot) [...] filedocumented as of this encounter Care Teams Communications Professor Relationship Specialty Start Date End Date Cody Lindo MD [address] [place] [address] PCP - General Internal Medicine 06/11/14 documented as of this encounter
--- OUTSIDE RECORDS SUMMARY | 2024-11-25 05:23 | External Medical Summary | Summary of Care ---
Author Name Unknown Organization [facility] Address [address] [place] [address] Phone [phone] Care Team Providers Care Christmas Tree Grader Name Role Phone Cody Lindo MD Primary Care Provider + Reason for Visit * Reason Comments eRx-Medication Refill Encounter Details Date Type Department Care Team (Late st Contact Info) Description 08/07/2024 Refill General Internal Medicine [facility] 200 [facility] [place] [address] Cody Lindo MD [address] [place] [address] Pain of right upper arm; Hyperlipidemia Allergies Active Allergy Reactions Criticality Noted Date Comments Alex Inhibitors 12/24/2012 Adverse reaction Lisinopril High 09/17/2019 documented as of this encounter (statuses as of 08/10/2024) Medications Medication Sig Dispensed Refills Start Date [...] 24 HOURS 10 Tablet 3 06/12/2024 Active LORazepam 0.5 MG Oral Tablet (Ativan)Indicatio ns:Anxiety TAKE 1 TABLET BY MOUTH AT BEDTIME NEEDED FOR ANXIETY 90 Tablet 06/16/2024 Active Albuterol Sulfate HFA 108 (90 Base) MCG/ACT Inhalation Aerosol Solution INHALE 2 PUFFS BY MOUTH 4 TIMES DAILY NEEDED FOR SHORTNESS OF BREATH 18 g 1 06/16/2024 Active Amoxicillin 500 MG Oral Capsule (Amoxil)Indicatio ns:Tooth pain Take 1 Capsule by mouth in the morning and 1 Capsule at noon and 1 Capsule before bedtime. 30 Capsule 07/02/2024 Active Gabapentin 300 MG Oral Capsule (Neurontin)Indica tions:Pain of right upper arm TAKE 1 CAPSULE BY MOUTH IN THE MORNING, THEN 1 CAP AT NOON AND 1 CAP AT BEDTIME 270 Capsule 08/10/2024 Active Fenofibrate 160 MG Oral Tablet (Lofibra)Indicati ons:Hyperlipidemi a TAKE 1 TABLET BY MOUTH ONCE DAILY WITH A MEAL 90 Tablet 1 08/10/2024 Active Atorvastatin Calcium 40 MG Oral Tablet (Lipitor) TAKE 1 TABLET BY MOUTH ONCE DAILY IN THE MORNING 90 Tablet 1 08/10/2024 Active Atorvastatin Calcium 40 MG Oral Tablet (Lipitor) TAKE 1 TABLET BY MOUTH IN THE MORNING 90 Tablet 1 02/13/2024 4 Discontinued Fenofibrate 160 MG Oral Tablet (Lofibra)Indicati ons:Hyperlipidemi a TAKE 1 TABLET BY MOUTH ONCE DAILY WITH A MEAL 90 Tablet 1 02/13/2024 4 Discontinued Gabapentin 300 MG Oral Capsule (Neurontin)Indica tions:Pain of right upper arm TAKE 1 CAPSULE BY MOUTH IN THE MORNING, THEN 1 CAP AT NOON AND 1 CAP BEFORE BEDTIME 270 Capsule 02/24/2024 4 Discontinued documented as of this encounter (statuses as of 08/10/2024) Active Problems Problem Noted Date Diagnosed Date [...] as of this encounter (statuses as of 08/10/2024) Resolved Problems Problem Noted Date Diagnosed Date [...] as of this encounter (statuses as of 08/10/2024) Immunizations Name Administration Dates Next Due Covid-19 [...] Telephone Encounter - Cody Lindo MD - 08/10/2024 10:19 AM EDT Signed Prescriptions: Disp Refills Gabapentin 300 MG Oral Capsule (Neurontin) 270 Ca*0 Sig: TAKE 1 CAPSULE BY MOUTH IN THE MORNING, THEN 1 CAP AT NOON AND 1 CAP AT BEDTIME Authorizing Provider: CODY LINDO Fenofibrate 160 MG Oral Tablet (Lofibra) 90 Tab*1 Sig: TAKE 1 TABLET BY MOUTH ONCE DAILY WITH A MEAL Authorizing Provider: CODY LINDO Ord ering User: SIS ELLIS Atorvastatin Calcium 40 MG Oral Tablet (Li*90 Tab*1 Sig: TAKE 1 TABLET BY MOUTH ONCE DAILY IN THE MORNING Authorizing Provider: CODY LINDO Ordering User: SSI ELLIS * Telephone Encounter - Sis Ellis [facility] - 08/10/2024 6:17 AM EDT Pending Prescriptions: Disp Refills Gabapentin 300 MG Oral Capsule (Neurontin) 270 Ca*0 Sig: TAKE 1 CAPSULE BY MOUTH IN THE MORNING, THEN 1 CAP AT NOON AND 1 CAP AT BEDTIME Signed Prescriptions: Disp Refills Fenofibrate 160 MG Oral Tablet (Lofibra) 90 Tab*1 Sig: TAKE 1 TABLET BY MOUTH ONCE DAILY WITH A MEAL Authorizing Provider: Diana LINDO Ordering User: SIS ELLIS Atorvastatin Calcium 40 MG Oral Tablet (Li*90 Tab*1 Sig: TAKE 1 TABLET BY MOUTH ONCE DAILY IN THE MORNING Authorizing Provider: CODY LINDO Ordering User: SIS ELLIS * Telephone Encounter - Sis Ellis RPh - 08/10/2024 6:17 AM EDT Refill pharmacists currently not authorized to approve refills for this class of medication per refill protocol. Please approve if appropriate. Thank you, Sis Ellis, PharmD. Clinical Pharmacist Pharmacy Refill Call Center 08/10/2024, 6:17 AM documented in this encounter Plan of Treatment Upcoming Encounters Date Type Department Care Team (Late st Contact Info) Description 03/04/2025 10:00 AM EDT Office Visit General Internal Medicine [place] [address] [place] [address] [address] Cody Lindo MD [address] [place] [address] Scheduled Procedures Name Priority Associated Diagnoses Date/Ti me ESOPHAGOGASTRODUODENOSCOPY ( EGD), FLEXIBLE, TRANSORAL, DIAGNOSTIC Recall Cirrhosis (HCC) COLONOSCOPY FLEXIBLE PROXIMAL DIAGNOSTIC Recall History of colon polyps Health Maintenance Due Date Last Done Comments Cologuard 2009 Fecal Occult Blood Test 2009 Sigmoidoscopy 2009 Hepatitis B Vaccine (3 of 3 - 19+ 3-dose series) 08/29/2023 03/29/2023, 02/26/2023 CKD HGB USE SMARTSET 32191 02/20/202402/19, 02/19/2023, 12/28/2022, Additional history exists CKD PHOS USE SMARTSET 53340 02/27/202402/11, 07/27/2022, 03/14/2021 Depression Screening 02/27/2024 02/26/2023 HbA1c 02/27/2024 02/26/2023, 0205/2022, 03/14/2021, Additional history exists GFR 05/22/2024 11/22/2023, [...] of right upper arm Pain in limb Hyperlipidemia Other and unspecified hyperlipidemia documented in this encounter Care Teams Christmas Tree Grader Relationship Specialty Start Date End Date Cody Lindo MD [address] [place] [address] PCP - General Internal Medicine 06/11/14 documented as of this encounter
--- OUTSIDE RECORDS SUMMARY | 2024-11-25 05:24 | External Medical Summary | Summary of Care ---
Author Name Unknown Organization [facility] Address [address] [place] [address] Phone [phone] Care Team Providers Care Bakery Assistant Name Role Phone Rashmi Lindo MD Primary Care Provider + Reason for Visit * Reason Onset Date Comments Health Maintenance 06/10/2024 Encounter Details Date Type Department Care Team (Late st Contact Info) Description 06/10/2024 Telephone General Internal Medicine [facility] [address] [place] [address] Rashmi Lindo MD [address] [place] [address] Health Maintenance Allergies Active Allergy Reactions Criticality Noted Date Comments Alex Inhibitors 12/24/2012 Adverse reaction Lisinopril High 09/17/2019 documented as of this encounter (statuses as of 06/10/2024) Medications Medication Sig Dispensed Refills Start Date End Date Status MILK THISTLE 1000 MG PO CAPS Take 1 Capsule by mouth in the morning. Active SURGICAL COMPRESSION STOCKING 20 to 30mm knee high. 1 Each 5 08/29/2015 Active Multiple Vitamins-Minerals (MULTIVITAMIN ADULTS) TABS Take by mouth. 11/26/2018 Active polyethylene glycol 3350 (MIRALAX) packetIndications:a s needed 1 Packet daily as needed for Constipation. Active fish oil concentrate (OMEGA-3) 1000 MG CAPSIndications:Hyp erlipidemia Take by mouth 1,200 mg 2 times a day . 60 Cap 5 09/16/2019 Active Acetaminophen 500 MG Oral Tablet (Tylenol) Take 2 Tablets by mouth every 6 hours as needed. Active Clindamycin Phosphate 1 % External GelIndications:Othe r acne APPLY TOPICALLY TO AFFECTED AREA OF SKIN TWICE DAILY 30 g 09/29/2022 Active Triamcinolone Acetonide 0.1 % External Ointment (Aristocort)Indicat ions:Venous stasis dermatitis of left lower extremity APPLY TOPICALLY TO AFFECTED AREA 2 TIMES A DAY 60 g 1 10/01/2022 Active Clindamycin Phosphate 1 % External GelIndications:Othe r acne APPLY TOPICALLY TO AFFECTED AREA 2 TIMES A DAY DIRECTED 30 g 5 10/01/2022 Active Sildenafil Citrate 50 MG Oral Tablet TAKE 1 TABLET BY MOUTH ONCE FOR 1 DOSE 1-4 HOURS BEFORE INTERCOURSE, NO MORE THAN 1 DOSE IN 24 HOURS 10 Tablet 3 12/27/2023 Active Atorvastatin Calcium 40 MG Oral Tablet (Lipitor) TAKE 1 TABLET BY MOUTH IN THE MORNING 90 Tablet 1 02/13/2024 Active Fenofibrate 160 MG Oral Tablet (Lofibra)Indication s:Hyperlipidemia TAKE 1 TABLET BY MOUTH ONCE DAILY WITH A MEAL 90 Tablet 1 02/13/2024 Active Gabapentin 300 MG Oral Capsule (Neurontin)Indicati ons:Pain of right upper arm TAKE 1 CAPSULE BY MOUTH IN THE MORNING, THEN 1 CAP AT NOON AND 1 CAP BEFORE BEDTIME 270 Capsule 02/24/2024 Active Fluticasone-Salmete rol 250-50 MCG/ACT Inhalation Aerosol Powder Breath Activated (Advair Diskus) Inhale 1 Puff by mouth in the morning and 1 Puff before bedtime. 60 Each 3 03/03/2024 Active Albuterol Sulfate HFA 108 (90 Base) MCG/ACT Inhalation Aerosol Solution INHALE 2 PUFFS BY MOUTH 4 TIMES DAILY NEEDED FOR SHORTNESS OF BREATH 18 g 1 03/03/2024 Active hydroCHLOROthiazide 25 MG Oral Tablet (Hydrodiuril)Indica tions:HTN, goal below 140/90 TAKE 1 TABLET BY MOUTH IN THE MORNING 90 Tablet 3 05/08/2024 Active LORazepam 0.5 MG Oral Tablet (Ativan)Indications :Anxiety TAKE 1 TABLET BY MOUTH AT BEDTIME NEEDED FOR ANXIETY 90 Tablet 05/14/2024 Active documented as of this encounter (statuses as of 06/10/2024) Active Problems Problem Noted Date Diagnosed Date [...] as of this encounter (statuses as of 06/10/2024) Resolved Problems Problem Noted Date Diagnosed Date [...] as of this encounter (statuses as of 06/10/2024) Immunizations Name Administration Dates Next Due Covid-19 [...] encounter Miscellaneous Notes * Telephone Encounter - Radhika Pride LPN - 06/10/2024 9:02 AM EDT Care Gaps Comprehensive Care Outreach Last Office/Telemedicine Visit: 03/03/2024 (in office), Visit date not found (telemedicine) Next Office Visit: 03/04/2025 Hemoglobin AIC Results: Lab Results Component Value Date/Time HEMOGLOBIN A1C - [facility] 5.5 02/26/2023 12:13 PM HEMOGLOBIN A1C - [facility] 6.0 (H) 11/21/2021 03:20 PM HEMOGLOBIN A1C - [facility] 6.0 (H) 03/14/2021 02:50 PM HEMOGLOBIN A1C - [facility] 5.8 (H) 08/09/2020 12:50 PM HEMOGLOBIN A1C - [facility] 5.1 09/15/2019 11:29 AM HEMOGLOBIN A1C - [facility] 5.7 03/26/2018 08:56 AM BP Readings from Last 1 Encounters: 03/03/24 140/80 Reviewed Health Maintenance below: Health Maintenance Topic Date Due COVID-19 Vaccine ( season) 2023 Hepatitis B Vaccine (3 of 3 - 19+ 3-dose series) 08/29/2023 CKD HGB USE SMARTSET 14269 02/20/2024 HbA1c 02/27/2024 CKD PHOS USE SMARTSET 97466 02/27/2024 Depression Screening 02/27/2024 GFR 05/22/2024 Colorectal Cancer Screening 06/10/2024 Influenza Vaccine (FLU shot) (1) 06/14/2024 Labs already ordered Colon Care Gap Outreach Action Taken: Left message my g documented in this encounter Plan of Treatment Upcoming Encounters Date Type Department Care Team (Late st Contact Info) Description 03/04/2025 10:00 AM EDT Office Visit General Internal Medicine [place] [address] [place] [address] [address] Rashim Lindo MD [address] [place] [address] [address] Scheduled Procedures Name Priority Associated Diagnoses Date/Ti me ESOPHAGOGASTRODUODENOSCOPY ( EGD), FLEXIBLE, TRANSORAL, DIAGNOSTIC Recall Cirrhosis (HCC) COLONOSCOPY FLEXIBLE PROXIMAL DIAGNOSTIC Recall History of colon polyps Health Maintenance Due Date Last Done Comments Cologuard 2009 Fecal Occult Blood Test 2009 Sigmoidoscopy 2009 COVID-19 Vaccine (2 - 2022- season) 2023 03/15/2021 Hepatitis B Vaccine (3 of 3 - 19+ 3-dose series) 08/29/2023 03/29/2023, 02/26/2023 CKD HGB USE SMARTSET 13497 02/20/202402/19, 02/19/2023, 12/28/2022, Additional history exists CKD PHOS USE SMARTSET 58207 02/27/202402/11, 07/27/2022, 03/14/2021 Depression Screening 02/27/2024 02/26/2023 HbA1c 02/27/2024 02/26/2023, 02/0 05/2022, 03/14/2021, Additional history exists GFR 05/22/2024 11/22/2023, 02/11, 07/27/2022, Additional history exists Colonoscopy 06/10/2024 06/10/2019, 05/15, 10/29/2007, Additional history exists Colorectal Cancer Screening 06/10/2024 Influenza Vaccine (FLU shot) (#1) 2024 07/07/2020, [...] filedocumented as of this encounter Care Teams Bakery Assistant Relationship Specialty Start Date End Date Rashmi Lindo MD [address] [place] [address] PCP - General Internal Medicine 06/11/14 documented as of this encounter
--- OUTSIDE RECORDS SUMMARY | 2024-11-25 05:24 | External Medical Summary | Summary of Care ---
Author Name Unknown Organization [facility] Address [address] [place] [address] Phone [phone] Care Team Providers Care Endless Track Vehicle Mechanic Name Role Phone Cody Lindo MD Primary Care Provider + Reason for Visit * Reason Onset Date Comments Medication Refill 06/12/2024 Encounter Details Date Type Department Care Team (Late st Contact Info) Description 06/12/2024 Refill General Internal Medicine [facility] 200 [facility] [place] [address] Cody Lindo MD [address] [place] [address] Allergies Active Allergy Reactions Criticality Noted Date Comments Alex Inhibitors 12/24/2012 Adverse reaction Lisinopril High 09/17/2019 documented as of this encounter (statuses as of 06/16/2024) Medications Medication Sig Dispensed Refills Start Date [...] DAY DIRECTED 30 g 5 10/01/2022 Active Atorvastatin Calcium 40 MG Oral Tablet (Lipitor) TAKE 1 TABLET BY MOUTH IN THE MORNING 90 Tablet 1 02/13/2024 Active Fenofibrate 160 MG Oral Tablet (Lofibra)Indicati ons:Hyperlipidemi a TAKE 1 TABLET BY MOUTH ONCE DAILY WITH A MEAL 90 Tablet 1 02/13/2024 Active Gabapentin 300 MG Oral Capsule (Neurontin)Indica tions:Pain of right upper arm TAKE 1 CAPSULE BY MOUTH IN THE MORNING, THEN 1 CAP AT NOON AND 1 CAP BEFORE BEDTIME 270 Capsule 02/24/2024 Active Fluticasone-Salme terol 250-50 MCG/ACT Inhalation Aerosol [...] OF BREATH 18 g 1 06/16/2024 Active Albuterol Sulfate HFA 108 (90 Base) MCG/ACT Inhalation Aerosol Solution INHALE 2 PUFFS BY MOUTH 4 TIMES DAILY NEEDED FOR SHORTNESS OF BREATH 18 g 1 03/03/2024 Discontinue d(Refill) LORazepam 0.5 MG Oral Tablet (Ativan)Indicatio ns:Anxiety TAKE 1 TABLET BY MOUTH AT BEDTIME NEEDED FOR ANXIETY 90 Tablet 05/14/2024 4 Discontinue d(Refill) documented as of this encounter (statuses as of 06/16/2024) Active Problems Problem Noted Date Diagnosed Date [...] as of this encounter (statuses as of 06/16/2024) Resolved Problems Problem Noted Date Diagnosed Date [...] as of this encounter (statuses as of 06/16/2024) Immunizations Name Administration Dates Next Due Covid-19 [...] Telephone Encounter - Cody Lindo MD - 06/16/2024 8:16 AM EDTSigned Prescriptions: Disp Refills Albuterol Sulfate HFA 108 (90 Base) MCG/AC*18 g 1 Sig: INHALE 2 PUFFS BY MOUTH 4 TIMES DAILY NEEDED FOR SHORTNESS OF BREATH Authorizing Provider: CODY LINDO * Telephone Encounter - Guillermina Calles, keg raiser - 06/12/2024 12:35 PM EDT Pt requesting HIGH PRIORITY due to being out of medication. Did you pend patient's preferred pharmacy and medication before forwarding?yes Pharmacy: [facility] [id number] Pending Prescriptions: Disp Refills Albuterol Sulfate HFA 108 (90 Base) MCG/A*18 g 1 Sig: INHALE 2 PUFFS BY MOUTH 4 TIMES DAILY NEEDED FOR SHORTNESS OF BREATH Last Visit: 03/03/2024 (in office), Visit date not found (telemedicine) Next Visit: 03/04/2025 If no future appointments scheduled, and last appointment is greater than a year ago, please schedule patient for a follow-up appointment Last date the medication was ordered: 03/03/24 Is this request for a controlled substance?No [...] AM EDT Office Visit General Internal Medicine [facility] 200 [facility] [place] [address] Cody Lindo MD [address] [place] [address] Scheduled Procedures Name Priority Associated Diagnoses Date/Ti me ESOPHAGOGASTRODUODENOSCOPY ( EGD), FLEXIBLE, TRANSORAL, DIAGNOSTIC Recall Cirrhosis (HCC) COLONOSCOPY FLEXIBLE PROXIMAL DIAGNOSTIC Recall History of colon polyps Health Maintenance Due Date Last Done Comments Cologuard 2009 Fecal Occult Blood Test 2009 Sigmoidoscopy 2009 Hepatitis B Vaccine (3 of 3 - 19+ 3-dose series) 08/29/2023 03/29/2023, 02/26/2023 CKD HGB USE SMARTSET 31671 02/20/202402/19, 02/19/2023, 12/28/2022, Additional history exists CKD PHOS USE SMARTSET 03441 02/27/202402/11, 07/27/2022, 03/14/2021 Depression Screening 02/27/2024 02/26/2023 [...] filedocumented as of this encounter Care Teams Endless Track Vehicle Mechanic Relationship Specialty Start Date End Date Cody Lindo MD [address] [place] [address] PCP - General Internal Medicine 06/11/14 documented as of this encounter
--- OUTSIDE RECORDS SUMMARY | 2024-11-25 05:24 | External Medical Summary | Summary of Care ---
Author Name Unknown Organization [facility] Address [address] [place] [address] Phone [phone] Care Team Providers Care Armored Truck Driver Name Role Phone Cody Lindo MD Primary Care Provider + Reason for Visit * Reason Onset Date Comments Medication Refill 06/12/2024 Encounter Details Date Type Department Care Team (Late st Contact Info) Description 06/12/2024 Refill General Internal Medicine [facility] [address] [place] [address] Cody Lindo MD [address] [place] [address] Anxiety Allergies Active Allergy Reactions Criticality Noted [...] NEEDED FOR ANXIETY 90 Tablet 06/16/2024 Active Sildenafil Citrate 50 MG Oral Tablet TAKE 1 TABLET BY MOUTH ONCE FOR 1 DOSE 1-4 HOURS BEFORE INTERCOURSE, NO MORE THAN 1 DOSE IN 24 HOURS 10 Tablet 3 12/27/2023 Discontinue d(Refill) Albuterol Sulfate HFA 108 (90 Base) MCG/ACT Inhalation Aerosol Solution INHALE 2 PUFFS BY MOUTH 4 TIMES DAILY NEEDED FOR SHORTNESS OF BREATH 18 g 1 03/03/2024 4 Discontinue d(Refill) LORazepam 0.5 MG Oral Tablet [...] Encounter - Cody Lindo MD - 06/16/2024 8:15 AM EDTSigned Prescriptions: Disp Refills Sildenafil Citrate 50 MG Oral Tablet 10 Tab*3 Sig: TAKE 1 TABLET BY MOUTH ONCE FOR 1 DOSE 1-4 HOURS BEFORE INTERCOURSE, NO MORE THAN 1 DOSE IN 24 HOURS Authorizing Provider: CODY LINDO Ordering User: HUA JIMENEZ LORazepam 0.5 MG Oral Tablet (Ativan) 90 Tab*0 Sig: TAKE 1 TABLET BY MOUTH AT B EDTIME NEEDED FOR ANXIETY Authorizing Provider: CODY LINDO * Telephone Encounter - Hua Jimenez [facility] - 06/12/2024 12:49 PM EDT Pending Prescriptions: Disp Refills LORazepam 0.5 MG Oral Tablet (Ativan) 90 Tab*0 Sig: TAKE 1 TABLET BY MOUTH AT BEDTIME NEEDED FOR ANXIETY Signed Prescriptions: Disp Refills Sildenafil Citrate 50 MG Oral Tablet 10 Tab*3 Sig: TAKE 1 TABLET BY MOUTH ONCE FOR 1 DOSE 1-4 HOURS BEFORE INTERCOURSE, NO MORE THAN 1 DOSE IN 24 HOURS Authorizing Provider: CODY LINDO Ordering User: HUA JIMENEZ * Telephone Encounter - Hua Jimenez RP - 06/12/2024 12:49 PM EDT I have reviewed the patients controlled substance dispensing history in the Prescription Drug Monitoring Program in compliance with the [facility] regulations before prescribing a controlled substance. PDMP checked on 06/12/2024. Pending Prescriptions: Disp Refills LORazepam 0.5 MG Oral Tablet (Ativan) 90 Tab*0 Sig: TAKE 1 TABLET BY MOUTH AT BEDTIME NEEDED FOR ANXIETY Signed Prescriptions: Disp Refills Sildenafil Citrate 50 MG Oral Tablet 10 Tab*3 Sig: TAKE 1 TABLET BY MOUTH ONCE FOR 1 DOSE 1-4 HOURS BEFORE INTERCOURSE, NO MORE THAN 1 DOSE IN 24 HOURS Authorizing Provider: CODY LINDO Ordering User: HUA JIMENEZ Last Visit: 03/03/2024 (in office), Visit date not found (telemedicine) Next Visit: 03/04/2025 Date medication was last filled: 05/14/24 Date medication is due for refill: 06/12/24 Pharmacy: [facility] [address] [id number] [address] Is this request for a [...] CREATININE RACHEAL 39 Please approve if appropriate. Thanks, Hua Jimenez [facility] Clinical Pharmacist [facility] ([facility]) [phone] * Telephone Encounter - Guillermina Calles PHARM Tech - 06/12/2024 12:32 PM EDT Pt requesting HIGH PRIORITY due to being out of medication because of holiday. Did you pend patient's preferred pharmacy and medication before forwarding?yes Pharmacy: [facility] [place] Pending Prescriptions: Disp Refills Sildenafil Citrate 50 MG Oral Tablet 10 Tab*3 Sig: TAKE 1 TABLET BY MOUTH ONCE FOR 1 DOSE 1-4 HOURS BEFORE INTERCOURSE, NO MORE THAN 1 DOSE IN 24 HOURS LORazepam 0.5 MG Oral Tablet (Ativan) 90 Tab*0 Sig: TAKE 1 TABLET BY MOUTH AT BEDTIME NEEDED FOR ANXIETY Last Visit: 03/03/2024 (in office), Visit date not found (telemedicine) Next Visit: 03/04/2025 If no future appointments scheduled, and last appointment is greater than a year ago, please schedule patient for a follow-up appointment Last date the medication was ordered: 05/14/24-12/27/23 Is this request for a controlled substance?Yes, What was the last refill date 05/14/24 w/ quantity 90and dosage 0.5 mg and Urine Drug Screen [...] Office Visit General Internal Medicine [facility] [place] [address] [place] [address] Cody Lindo MD [address] [facility] [place] [address] Scheduled Procedures Name Priority Associated Diagnoses Date/Ti me ESOPHAGOGASTRODUODENOSCOPY ( EGD), FLEXIBLE, TRANSORAL, DIAGNOSTIC Recall Cirrhosis (HCC) COLONOSCOPY FLEXIBLE PROXIMAL DIAGNOSTIC Recall History of colon polyps Health Maintenance Due Date Last Done Comments Cologuard 2009 Fecal Occult Blood Test 2009 Sigmoidoscopy 2009 Hepatitis B Vaccine (3 of 3 - 19+ 3-dose series) 08/29/2023 03/29/2023, 02/26/2023 CKD HGB USE SMARTSET 72416 02/20/202402/19, 02/19/2023, 12/28/2022, Additional history exists CKD PHOS USE SMARTSET 16305 02/27/202402/11, 07/27/2022, 03/14/2021 Depression Screening 02/27/2024 02/26/2023 HbA1c 02/27/2024 02/26/2023, 0205/2022, 03/14/2021, Additional history exists GFR 05/22/2024 11/22/2023, 02/11, 07/27/2022, Additional history exists Colonoscopy 06/10/2024 06/10/2019, 05/15, 10/29/2007, Additional history exists Colorectal Cancer Screening 06/10/2024 COVID-19 Vaccine (2 - 2022- season) 2024 03/15/2021 Influenza Vaccine (FLU shot) [...] unspecified documented in this encounter Care Teams Armored Truck Driver Relationship Specialty Start Date End Date Cody Lindo MD [address] [place] [address] PCP - General Internal Medicine 06/11/14 documented as of this encounter
--- OUTSIDE RECORDS SUMMARY | 2024-11-25 05:24 | External Medical Summary | Summary of Care ---
Author Name Unknown Organization [facility] Address [address] [place] [address] Phone [phone] Care Team Providers Care Iron Setter Name Role Phone Cody Lindo MD Primary Care Provider + Reason for Visit * Reason Onset Date Comments Medication Refill 06/29/2024 Encounter Details Date Type Department Care Team (Late st Contact Info) Description 06/29/2024 Refill General Internal Medicine [facility] [address] [place] [address] Cody Lindo MD [address] [place] [address] Tooth pain Allergies Active Allergy Reactions Criticality Noted Date Comments Alex Inhibitors 12/24/2012 Adverse reaction Lisinopril High 09/17/2019 documented as of this encounter (statuses as of 07/02/2024) Medications Medication Sig Dispensed Refills Start Date [...] 06/12/2024 Active LORazepam 0.5 MG Oral Tablet (Ativan)Indications :Anxiety TAKE 1 TABLET BY MOUTH AT BEDTIME NEEDED FOR ANXIETY 90 Tablet 06/16/2024 Active Albuterol Sulfate HFA 108 (90 Base) MCG/ACT Inhalation Aerosol Solution INHALE 2 PUFFS BY MOUTH 4 TIMES DAILY NEEDED FOR SHORTNESS OF BREATH 18 g 1 06/16/2024 Active Amoxicillin 500 MG Oral Capsule (Amoxil)Indications :Tooth pain Take 1 Capsule by mouth in the morning and 1 Capsule at noon and 1 Capsule before bedtime. 30 Capsule 07/02/2024 Active documented as of this encounter (statuses as of 07/02/2024) Active Problems Problem Noted Date Diagnosed Date [...] as of this encounter (statuses as of 07/02/2024) Resolved Problems Problem Noted Date Diagnosed Date [...] as of this encounter (statuses as of 07/02/2024) Immunizations Name Administration Dates Next Due Covid-19 [...] Telephone Encounter - Cody Lindo MD - 07/02/2024 8:22 AM EDTSigned Prescriptions: Disp Refills Amoxicillin 500 MG Oral Capsule (Amoxil) 30 Cap*0 Sig: Take 1 Capsule by mouth in the morning and 1 Capsule at noon and 1 Capsule before bedtime. Authorizing Provider: CODY LINDO * Telephone Encounter - Nilda Springer CMA - 07/01/2024 5:57 PM EDT Did you pend patient's preferred pharmacy and medication before forwarding?yes Pharmacy: [facility] [id number] Pending Prescriptions: Disp Refills Amoxicillin 500 MG Oral Capsule (Amoxil) 30 Cap*0 Sig: Take 1 Capsule by mouth in the morning and 1 Capsule at noon and 1 Capsule before bedtime. Last Visit: 03/03/2024 (in office), Visit date not found (telemedicine) Next Visit: 03/04/2025 If no future appointments scheduled, and last appointment is greater than a year ago, please schedule patient for a follow-up appointment Last date the medication was ordered: 09/27/23 Is this request for a controlled substance?No [...] PM HGBA1C 5.8 (H) 08/09/2020 12:50 PM * Telephone Encounter - Yvonne Donis CPhT - 06/29/2024 8:50 AM EDT Pt requesting HIGH PRIORITY due to needing med by 07/09/24, Pt stated he has his dentist on 07/09 Patient requesting refills for Amoxicillin 500 MG Oral Capsule (Amoxil) . Upon chart review, medication is listed as as of 09/27/23 . Please advise if you wish to continue this therapy for the patient. Thank you, Yvonne Donis CPhT Lighting Designer II [facility] ([facility]) (Formerly Telepharmacy) 06/29/2024,8:50 AM documented in this encounter Plan of Treatment Upcoming Encounters Date Type Department Care Team (Late st Contact Info) Description 03/04/2025 10:00 AM EDT Office Visit General Internal Medicine [facility] [address] [place] [id number] Cody Lindo MD [address] [place] [address] Scheduled Procedures Name Priority Associated Diagnoses Date/Ti me ESOPHAGOGASTRODUODENOSCOPY ( EGD), FLEXIBLE, TRANSORAL, DIAGNOSTIC Recall Cirrhosis (HCC) COLONOSCOPY FLEXIBLE PROXIMAL DIAGNOSTIC Recall History of colon polyps Health Maintenance Due Date Last Done Comments Cologuard 2009 Fecal Occult Blood Test 2009 Sigmoidoscopy 2009 Hepatitis B Vaccine (3 of 3 - 19+ 3-dose series) 08/29/2023 03/29/2023, 02/26/2023 CKD HGB USE SMARTSET 25824 02/20/202402/19, 02/19/2023, 12/28/2022, Additional history exists CKD PHOS USE SMARTSET 40164 02/27/202402/11, 07/27/2022, 03/14/2021 Depression Screening 02/27/2024 02/26/2023 [...] as of this encounter Visit Diagnoses Diagnosis Tooth pain Unspecified disorder of the teeth and supporting structures documented in this encounter Care Teams Iron Setter Relationship Specialty Start Date End Date Cody Lindo MD [address] [place] [address] PCP - General Internal Medicine 06/11/14 documented as of this encounter
--- OUTSIDE RECORDS SUMMARY | 2024-11-25 05:24 | External Medical Summary | Summary of Care ---
Author Name Unknown Organization [facility] Address [address] [place] [address] Phone [phone] Care Team Providers Care Computer Game Tester Name Role Phone Rashmi Lindo MD Primary Care Provider + Reason for Visit * Reason Onset Date Comments Medication Refill 07/13/2024 Encounter Details Date Type Department Care Team (Late st Contact Info) Description 07/13/2024 Refill General Internal Medicine [facility] [address] [place] [address] Rashmi Lindo MD [address] [place] [address] Anxiety Allergies Active Allergy Reactions Criticality Noted Date Comments Alex Inhibitors 12/24/2012 Adverse reaction Lisinopril High 09/17/2019 documented as of this encounter (statuses as of 07/13/2024) Medications Medication Sig Dispensed Refills Start Date [...] as of this encounter (statuses as of 07/13/2024) Active Problems Problem Noted Date Diagnosed Date [...] as of this encounter (statuses as of 07/13/2024) Resolved Problems Problem Noted Date Diagnosed Date [...] as of this encounter (statuses as of 07/13/2024) Immunizations Name Administration Dates Next Due Covid-19 [...] encounter Miscellaneous Notes * Telephone Encounter - Franca Shaffer PHARM Tech - 07/13/2024 8:28 AM EDT Pt calling to request LORazepam 0.5 MG Oral Tablet (Ativan) . Informed pt that RX is available at their pharmacy. Pt verbalized understanding and stated they will check with their pharmacy regarding this medication. Thank you, Franca Shaffer CPhT Fiberglass Boat Builder II [facility] ([facility]) 07/13/2024, 9:09 AM documented in this encounter Plan of Treatment Upcoming Encounters Date Type Department Care Team (Late st Contact Info) Description 03/04/2025 10:00 AM EDT Office Visit General Internal Medicine [facility] [place] [address] [place] [address] Rashmi Lindo MD [address] [facility] [place] [address] Scheduled Procedures Name Priority Associated Diagnoses Date/Ti me ESOPHAGOGASTRODUODENOSCOPY ( EGD), FLEXIBLE, TRANSORAL, DIAGNOSTIC Recall Cirrhosis (HCC) COLONOSCOPY FLEXIBLE PROXIMAL DIAGNOSTIC Recall History of colon polyps Health Maintenance Due Date Last Done Comments Cologuard 2009 Fecal Occult Blood Test 2009 Sigmoidoscopy 2009 Hepatitis B Vaccine (3 of 3 - 19+ 3-dose series) 08/29/2023 03/29/2023, 02/26/2023 CKD HGB USE SMARTSET 94957 02/20/202402/19, 02/19/2023, 12/28/2022, Additional history exists CKD PHOS USE SMARTSET 90039 02/27/2024 0503/2023, 07/27/2022, 03/14/2021 Depression Screening 02/27/2024 02/26/2023 HbA1c [...] unspecified documented in this encounter Care Teams Computer Game Tester Relationship Specialty Start Date End Date Rashmi Lindo MD [facility] [place] [address] PCP - General Internal Medicine 06/11/14 documented as of this encounter
--- NOTE | 2024-11-25 06:53 | History & Physical Report ---
Date of Service November 24, 2024 Assessment & Plan (1) Atrial flutter with rapid ventricular response: Plan: 59-year-old male with past medical history significant for prediabetes, asthma, hypertension, CKD stage III, history of diverticulitis of colon, hydrocele, left foot drop, anxiety, history of tobacco use comes because of new onset flutter and CHF. Patient says having bilateral extremity swelling going on for last 2 weeks. Progressively worsening. He has left lower extremity edema on and off from lymphedema but now has edema in both legs. His scrotum is also swollen. He thinks he also has right inguinal hernia. No pain at inguinal hernia site. He is also getting short of breath on exertion. Sometimes in the night he is getting up gasping for breath. He does not lie flat. Sometimes feeling dizzy last 2 weeks. Went to PCP and found to be in rapid A flutter and was advised to come to the ER. Hemodynamics are okay. Denies any chest pain. No nausea. Afebrile. No cough. Vision is okay. No runny nose or sore throat. Says currently he is drinking alcohol only once in a while. A flutter with rapid ventricular response New onset Troponin 34 and repeat 38 and repeat is 35 Started on Cardizem drip 5 to 10milligram per hour Metoprolol 25 mg p.o. 4 times daily IV heparin N.p.o. for now Telemetry Will follow serial enzymes and echo Cardiology consult for further recommendation Acute CHF Bilateral lower extremity edema Dyspnea on exertion Chest x-ray moderate cardiomegaly with pulmonary venous hypertension No DVT on Dopplers of lower extremity Received IV Lasix 40 mg in the ER Will Continue with IV Lasix 40 mg twice daily Daily weights and I's and O's Will follow echo Telemetry Cardiology consult in a.m. further recommendation History of CKD stage III Presented with creatinine 1.2 We will follow labs History of alcoholism Currently denies regular alcohol use Thiamine and folic acid IV Ativan as needed Will monitor Hypertension Not on meds We will monitor Prediabetes Will follow HbA1c levels History of asthma Continue home inhalers Hyperlipidemia Statin Right inguinal hernia Needs follow-up DVT prophylaxis On IV heparin Disposition Telemetry Full code. History of Present Illness Chief Complaint: New onset a flutter and CHF Primary Care Provider: Rashmi Lindo MD 59-year-old male with past medical history significant for prediabetes, asthma, hypertension, CKD stage III, history of diverticulitis of colon, hydrocele, left foot drop, anxiety, history of tobacco use comes because of new onset flutter and CHF. Patient says having bilateral extremity swelling going on for last 2 weeks. Progressively worsening. He has left lower extremity edema on and off from lymphedema but now has edema in both legs. His scrotum is also swollen. He thinks he also has right inguinal hernia. No pain at inguinal hernia site. He is also getting short of breath on exertion. Sometimes in the night he is getting up gasping for breath. He does not lie flat. Sometimes feeling dizzy last 2 weeks. Went to PCP and found to be in rapid A flutter and was advised to come to the ER. Hemodynamics are okay. Denies any chest pain. No nausea. Afebrile. No cough. Vision is okay. No runny nose or sore throat. Says currently he is drinking alcohol only once in a while. Past medical history. As mentioned above Past surgical history. Colonoscopy. Disc repair L4/L5. EGD. EGD with biopsy. Sigmoid colectomy in 2006. Reduction of bowel obstruction at age 11. Throat surgery age 7. Hydrocele repair age 31. Social history. Quit smoking 2010. Smoked 1 pack a day for 2 years. Currently drinking alcohol once in a while. No drug use. Family history. Father had heart disorder. Mother had heart disorder. Hypertension. Allergies Allergy/AdvReac Type Severity Reaction Status Date / Time lisinopril Allergy Severe ANGIOEDEMA Verified 12/09/19 12:32 Home Medications Medication Instructions Recorded Confirmed Type albuterol sulfate 90 mcg/actuation 2 puff inhalation Q4H PRN sob 11/24/24 11/24/24 History aerosol inhaler atorvastatin 40 mg tablet 40 mg PO DAILY 11/24/24 11/24/24 History fenofibrate 160 mg tablet 160 mg PO DAILY 11/24/24 11/24/24 History fluticasone 250 mcg-salmeterol 50 1 inh inhalation BID 11/24/24 11/24/24 History mcg/dose blistr powdr for inhalation gabapentin 300 mg capsule 300 mg PO TID 11/24/24 11/24/24 History lorazepam 0.5 mg tablet 0.5 mg PO HS PRN Anxiety 11/24/24 11/24/24 History milk thistle 500 mg capsule 1,000 mg PO DAILY 11/24/24 11/24/24 History multivitamin 1 tab PO DAILY 11/24/24 11/24/24 History omega-3 fatty acids 1,000 mg 1,000 mg PO DAILY 11/24/24 11/24/24 History capsule Past Med/Surg History Problem List Atrial flutter with rapid ventricular response Wound dehiscence S/P tendon repair Alcohol use disorder Post-operative infection Rupture of right triceps tendon (Acute) Lymphedema (Chronic) Left foot drop (Chronic) Pre-diabetes (Chronic) DVT prophylaxis History of tonsillectomy (Chronic) HTN (hypertension) (Chronic) Anxiety (Chronic) History of lumbar surgery (Chronic) L4-L5 decompression, residual drop left foot Medical History (Updated 11/25/24 @ 06:57 by Jorge Nguyen MD) Seasonal allergies inhaler PRN listed on medications/no hx asthma/copd noted per RN phone assessment Surgical History Hx of lumbar discectomy x2 Hx of colonoscopy Family History Father Stroke AAA (abdominal aortic aneurysm) Smoker Mother Coronary heart disease Hypertension Smoker Uncle Prostate cancer Diverticulitis Social History Smoking Status: Never smoker packs per day: 1; Second Hand Exposure: No; Do You Dip or Chew Tobacco: No; Hx Alcohol Use: Yes Alcohol type: beer Alcohol Intake Frequency Comment: significant alcohol hx. reportedly decreased to 6 pack daily Hx Substance Use: No Preferred Language: Czech Communication Ability: Effective Supervisor [employer] Required: No Beliefs That Will Affect Care: None marital status: Current Living Situation: Alone Feels Safe at Home: Yes Safety Concerns: Feels Safe At This Time Childhood Exposure to Second-Hand Smoke: Yes Assistive Devices: None Review of Systems Review of Systems: All systems reviewed & are unremarkable except as noted in HPI & below Physical Exam Physical Exam: General- Not in acute distress Head- atraumatic Eyes- PERRL. ENT- oropharynx clear Neck- supple, no JVD. Lungs- clear to auscultation no wheezing or crackles. Heart- irregular rhythm; tachycardia, no murmur, no gallop. Abdomen- normal bowel sounds, soft, nontender, no distension Extremities- b/l lower extremity gross edema present, mild erythema in lower e xtremity seen. Neuro- alert, oriented PERRL, no facial palsy; no dysarthria; moves extremities Results & Data Results & Data Vital Signs (Past 12 Hours) Vital Signs Temp Pulse Pulse Resp BP BP Pulse Ox 11/24/24 18:37 142 H 122/93 11/24/24 18:18 141 H 11/24/24 18:12 99 H 18 11/24/24 17:59 99 11/24/24 17:59 142 H 15 119/84 99 11/24/24 16:45 36.4 C L 140 H 22 136/89 98 O2 Del Method 11/24/24 18:37 11/24/24 18:18 11/24/24 18:12 11/24/24 17:59 Room Air 11/24/24 17:59 Room Air 11/24/24 16:45 Room Air Diagnostic Findings Laboratory Results WBC 4.11 K/ul (4.8-10.8) L 11/25/24 03:27 RBC 3.96 M/uL (4.70-6.10) L 11/25/24 03:27 Hgb 12.5 g/dl (14.0-18.0) L 11/25/24 03:27 Hct 36.6 % (42.0-52.0) L 11/25/24 03:27 MCV 92.4 fL (80.0-100.0) 11/25/24 03:27 MCH 31.6 pg (25.0-34.0) 11/25/24 03:27 MCHC 34.2 g/dL (32.0-36.0) 11/25/24 03:27 RDW Std Deviation 51.2 fL (36.4-46.3) H 11/25/24 03:27 RDW Coeff of Tamera 15.2 % (11.5-14.5) H 11/25/24 03:27 Plt Count 209 K/uL (130-400) 11/25/24 03:27 MPV 9.6 fL (9.4-12.4) 11/25/24 03:27 Immature Gran % (Auto) 0.5 % 11/25/24 03: Neut % (Auto) 49.7 % 11/25/24 03:27 Lymph % (Auto) 31.6 % 11/25/24 03:27 Bureau % (Auto) 14.8 % 11/25/24 03:27 Eos % (Auto) 2.7 % 11/25/24 03:27 Baso % (Auto) 0.7 % 11/25/24 03:27 Neut # (Auto) 2.04 K/uL (1.40-6.50) 11/25/24 03:27 Lymph # (Auto) 1.30 K/uL (1.20-3.40) 11/25/24 03:27 Bureau # (Auto) 0.61 K/uL (0.11-0.59) H 11/25/24 03: Eos # (Auto) 0.11 K/uL (0.00-0.50) 11/25/24 03:27 Baso # (Auto) 0.03 K/uL (0.00-0.20) 11/25/24 03:27 Immature Gran # (Auto) 0.02 K/uL (0.01-0.20) 11/25/24 03:27 PT 14.6 Seconds (9.0-12.0) H 11/24/24 18:30 INR 1.4 (0.9-1.1) H 11/24/24 18:30 APTT 26 Seconds (21-31) 11/24/24 18:30 PTT Ratio 1.0 11/24/24 18:30 Heparin Anti-Xa, Unfract 0.41 IU/ml (0.3-0.7) 11/25/24 03:27 Sodium 139 mmol/L (136-145) 11/25/24 03:27 Potassium 3.5 mmol/L (3.5-5.1) 11/25/24 03:27 Chloride 105 mmol/L (98-107) 11/25/24 03:27 Carbon Dioxide 28 mmol/L (21-32) 11/25/24 03:27 Anion Gap 6 (3-11) 11/25/24 03:27 BUN 24 mg/dl (6-23) H 11/25/24 03:27 Creatinine 1.18 mg/dl (0.6-1.4) 11/25/24 03:27 Est Cr Clr Drug Dosing 84.3 ml/min 11/25/24 03:27 eGFR 70.64 11/25/24 03:27 BUN/Creatinine Ratio 20.3 (10-20) H 11/25/24 03:27 Glucose 109 mg/dl (70-99(Fasting)) H 11/25/24 03:27 Calcium 9.2 mg/dl (8.6-10.3) 11/25/24 03:27 Magnesium 1.8 mg/dl (1.7-2.4) 11/25/24 03:27 Total Bilirubin 0.6 mg/dl (0.2-1.0) 11/24/24 17:00 AST 43 U/L (13-39) H 11/24/24 17:00 ALT 27 U/L (7-52) 11/24/24 17:00 Alkaline Phosphatase 37 U/L (34-104) 11/24/24 17:00 Troponin I High Sens 35.6 pg/ml (0-20) H 11/25/24 03:27 Total Protein 6.4 gm/dl (6.0-8.3) 11/24/24 17:00 Albumin 3.7 gm/dl (3.4-5.0) 11/24/24 17:00 Globulin 2.7 gm/dl (2.5-4.0) 11/24/24 17:00 Albumin/Globulin Ratio 1.4 (0.9-2) 11/24/24 17:00 TSH 3.764 uIu/ml (0.300-4.500) 11/24/24 17:00 Impressions Chest X-Ray 11/24/24 16:50 Exam: Chest one view Reason for exam: Chest pain Previous study: None Findings there is moderate cardiomegaly with pulmonary venous hypertension but no mary lou edema or lung infiltrate. No pleural effusion or pneumothorax is evident. IMPRESSION: Moderate cardiomegaly with pulmonary venous hypertension. Otherwise negative for acute disease. Electronically signed by Zay Campbell 11-24-2024 7:15 PM Venous Doppler Study 11/24/24 18:22 DVT ULTRASOUND BILATERAL LOWER EXTREMITY INDICATION: Pain TECHNIQUE: Grayscale and color Doppler evaluation of the BILATERAL femoral-popliteal venous system was performed. A duplex Doppler study was performed, consisting of integrated two-dimensional (2D) real-time imaging: Color flow Doppler and Doppler spectral analysis. COMPARISON: None FINDINGS: RIGHT common femoral, femoral and popliteal veins: Normal compressibility, color flow, respiratory variation. No intraluminal echogenic material. LEFT common femoral, femoral and popliteal veins: Normal compressibility, color flow, respiratory variation. No intraluminal echogenic material. Subcutaneous edema of both lower extremities. IMPRESSION: No evidence of deep venous thrombus in bilateral femoral-popliteal venous systems. Subcutaneous edema of both lower extremities. Electronically signed by Zan Caballero 11-24-2024 8:04 PM ECG Additional Comments: ECG. A flutter with variable AV block with rate of 126. Nonspecific T wave abnormality in lateral leads. Code Status & VTE Plan VTE Prophylaxis Plan VTE Prophylaxis will be ordered: Yes
--- NOTE | 2024-11-25 08:41 | Cardiology Consultation ---
Date of Consultation November 25, 2024 Assessment & Plan (1) Atrial flutter with rapid ventricular response: (2) Acute on chronic heart failure with reduced ejection fraction and diastolic dysfunction: (3) HTN (hypertension): Plan Patient admitted with newly diagnosed atrial flutter RVR. Duration unknown, but based on symptoms of dyspnea and worsening edema, likely present for at least 1 month. Continue IV heparin. Heart rates improved with oral metoprolol and IV diltiazem gtt overnight. Diltiazem discontinued due to atrial flutter with slow rates and findings of reduced LVEF. Echo this morning revealed moderate global hypokinesis with LVEF 37%. Likely tachyinduced. CHADSVASC score of 2-3 (CHF, HTN, and borderline DM - not currently treated). [facility] anticoagulation will be needed with Eliquis 5 mg BID on discharge. Long discussion with patient about treatment options for atrial flutter. Given his newly diagnosed cardiomyopathy and difficult to control rates, recommend proceeding with TEJAS/CV in attempts to restore NSR. Post cardioversion, will transition oral metoprolol tartrate to metoprolol succinate. He is agreeable. Currently NPO. In regards to treatment for his newly diagnosed cardiomyopathy; HFrEF Ongoing diuretic therapy recommended for LE edema. Venous duplex negative for DVT Increase lasix to 60 mg IV BID. Add spironolactone 12.5 mg daily Monitor electrolytes Monitor I+O's Daily weight with standing scale. Start metoprolol succinate If BP allows, would benefit from Entresto. Case discussed with Dr. Ross. Further recommendations recommended I spent a total of 60 minutes on the date of service in preparation, delivery, and documentation of the care provided to this patient, excluding any time spent in the performance of separately billed services. Padmini Red PA-C Department of Cardiology, [facility] This chart was completed in part utilizing Speech Voice Recognition Software. Grammatical errors, random word insertions, pronoun errors, and incomplete sentences are an occasional consequence of this system due to software limitations, ambient noise, and hardware issues. Any formal questions or concerns about the content, text, or information contained within the body of this dictation should be directly addressed to the provider for clarification. Supervising Physician Co-Signing Physician Notes Attending attestation: Case reviewed with the advanced practitioner. I have personally performed a history and physical examination on the patient. I have reviewed the advanced practitioner's documentation on the date of service referenced in note, and I agree with, and take responsibility for the plan of care. Subjective: Patient describes dizziness, progressive lower extremity edema easy fatigability over the last 4 weeks. Noted lots of psychosocial stressors at home over the last 2 months. Exam: Cardiovascular the rhythm, left greater than right lower extremity edema, 1-2+ to the thigh Data: EKG performed on presentation 11/24/2024 at 1652 and interpret independently revealed atrial flutter with rapid ventricular sponsor 126 bpm. Pattern consistent with a right-sided flutter with sawtooth pattern noted in the inferior leads II, III, aVF.Computer interpretation raise concerns for inferior ST segment ovation, I think that this is just the morphology of the flutter waves are not reflective of ischemia. Repeat tracing this morning reveals ongoing atrial flutter with one-to-one conduction, ventricular rate 69 bpm. Transthoracic echocardiogram performed today revealed moderate diffuse left ventricular hypokinesis, LVEF 37%, moderate tricuspid regurgitation, no pulmonary pretension Impression/ Plan: Acute heart failure, reduced ejection fraction, perhaps tachycardia induced cardiomyopathy Newly recognized atrial flutter, EKG compatible with a right-sided atrial flutter -Mild troponin elevation, flat trend, consistent with CHF and tachycardia rather than acute coronary syndrome. -Patient agreeable to TEJAS guided direct-current cardioversion. Informed consent was obtained. Patient elects to proceed. IV diltiazem discontinued in favor of ongoing treatment with metoprolol. Unfractioned heparin for rate control. Furosemide and atorvastatin. I spent a total of 20 minutes coordinating, documenting, and providing care for this patient excluding time spent in the performance of separately billed services or time spent by another provider. Alexis Ross, History of Present Illness Reason for Consultation: Atrial flutter RVR [facility] Att[facility]: Dr. Ross History of Present Illness Patient is a 59 year old male who presented to from PCP office after being diagnosed with Atrial flutter RVR. Patient has been noticing increasing SOB, increased LE edema, weight gain and dizziness for the last few weeks prompting his PCP visit. History includes: 1. HTN 2. Borderline DM 3. Dyslipidemia 4. prior alcohol abuse - in remission 5. history of diverticulitis s/p partial colectomy No prior cardiovascular history. He did have an echocardiogram in 2014 demonstrating Normal LVEF without significant valvular disease and small insignificant right to left shunt, consistent with small PFO only with Valsalva. Upon arrival to the ER with findings of persistent atrial flutter RVR, patient was started on IV heparin for stroke prophylaxis, IV diltiazem gtt for rate control, and metoprolol tartrate. He was also treated with several doses IV Lasix due to LE edema, pulm vascular congestion and symptoms CHF. HS troponin minimally elevated but flat in the 30's. At time of consult, patient resting in bed comfortably. He reports his "palpitations" have improved. SOB also improved. Comfortable at rest. No hypoxia. No orthopnea. Ongoing LE edema noted. He reports he has chronic lymphedema but has recently worsened and noted about 5-10 lb weight gain recently with abdominal bloating. Also reports scrotal swelling. Echco completed this morning demonstrated Reduced LVEF at 37%. 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 He admits to urination since admission, but he denies a significant change from his baseline output. he denies chest pain. Allergies Allergy/AdvReac Type Severity Reaction Status Date / Time lisinopril Allergy Severe ANGIOEDEMA Verified 12/09/19 12:32 Home Medications Medication Instructions Recorded Confirmed Type albuterol sulfate 90 mcg/actuation 2 puff inhalation Q4H PRN sob 11/24/24 11/24/24 History aerosol inhaler atorvastatin 40 mg tablet 40 mg PO DAILY 11/24/24 11/24/24 History fenofibrate 160 mg tablet 160 mg PO DAILY 11/24/24 11/24/24 History fluticasone 250 mcg-salmeterol 50 1 inh inhalation BID 11/24/24 11/24/24 History mcg/dose blistr powdr for inhalation gabapentin 300 mg capsule 300 mg PO TID 11/24/24 11/24/24 History lorazepam 0.5 mg tablet 0.5 mg PO HS PRN Anxiety 11/24/24 11/24/24 History milk thistle 500 mg capsule 1,000 mg PO DAILY 11/24/24 11/24/24 History multivitamin 1 tab PO DAILY 11/24/24 11/24/24 History omega-3 fatty acids 1,000 mg 1,000 mg PO DAILY 11/24/24 11/24/24 History capsule Patient History Medical History (Updated 11/25/24 @ 11:02 by Padmini Red PA-C) Seasonal allergies inhaler PRN listed on medications/no hx asthma/copd noted per RN phone assessment Surgical History Hx of lumbar discectomy x2 Hx of colonoscopy Family History Father Stroke AAA (abdominal aortic aneurysm) Smoker Mother Coronary heart disease Hypertension Smoker Uncle Prostate cancer Diverticulitis Social History Smoking Status: Never smoker packs per day: 1; Second Hand Exposure: No; Do You Dip or Chew Tobacco: No; Hx Alcohol Use: Yes Alcohol type: beer Alcohol Intake Frequency Comment: significant alcohol hx. reportedly decreased to 6 pack daily Hx Substance Use: No Preferred Language: Bulgarian Communication Ability: Effective Advertising Copywriter Required: No Beliefs That Will Affect Care: None marital status: Current Living Situation: Alone Feels Safe at Home: Yes Safety Concerns: Feels Safe At This Time Childhood Exposure to Second-Hand Smoke: Yes Assistive Devices: None Review of Systems Review of Systems: All systems reviewed & are unremarkable except as noted in HPI & below Physical Exam Constitutional: WD/WN, vitals as above well nourished; no acute distress Neck: normal visual inspection Respiratory: normal respiratory effort Auscultation: + diminished lung sounds; no crackles and no rales Cardiovascular: Rate/Rhythm: + irregularly irregular Heart Sounds: normal S1 and normal S2; no murmur Vessels: no JVD Extremities: + edema (2+ LE edema to thighs) Gastrointestinal (Abdomen): normal bowel sounds, soft, nontender, no hepatosplenomegaly Musculoskeletal: no cyanosis or clubbing, extremities motor strength 5/5 Results & Data Vital Signs (Past 12 Hours) Vital Signs Temp Pulse Pulse Resp BP Pulse Ox O2 Del Method 11/25/24 08:15 36.6 C 70 18 111/78 99 Room Air 11/25/24 04:02 70 11/25/24 03:07 36.4 C L 139 H 19 105/64 96 Room Air 11/25/24 00:10 113/40 L 11/24/24 23:10 36.6 C 138 H 20 123/78 96 Room Air 11/24/24 23:00 Room Air 11/24/24 23:00 36.6 C 124 H 18 123/78 96 Room Air 11/24/24 22:06 130 H 11/24/24 21:39 139 H 16 126/100 Laboratory Results Cardiac Enzymes 11/24/24 11/24/24 11/25/24 Range/Units 17:00 18:30 03:27 AST 43 H (13-39) U/L Troponin I High Sens 34.2 H 38.0 H 35.6 H (0-20) pg/ml Coagulation 11/24/24 11/24/24 Range/Units 17:00 18:30 PT Cancelled 14.6 H APTT Cancelled 26 CBC 11/24/24 11/25/24 Range/Units 17:00 03:27 WBC 4.63 L 4.11 L (4.8-10.8) K/ul RBC 3.97 L 3.96 L (4.70-6.10) M/uL Hgb 12.4 L 12.5 L (14.0-18.0) g/dl Hct 37.2 L 36.6 L (42.0-52.0) % Plt Count 235 209 (130-400) K/uL Neut # (Auto) 2.94 2.04 (1.40-6.50) K/uL Lymph # (Auto) 0.98 L 1.30 (1.20-3.40) K/uL [place] # (Auto) 0.58 0.61 H (0.11-0.59) K/uL Eos # (Auto) 0.07 0.11 (0.00-0.50) K/uL Baso # (Auto) 0.03 0.03 (0.00-0.20) K/uL Comprehensive Metabolic Panel 11/24/24 11/25/24 Range/Units 17:00 03:27 Sodium 139 139 (136-145) mmol/L Potassium 3.6 3.5 (3.5-5.1) mmol/L Chloride 103 105 (98-107) mmol/L Carbon Dioxide 32 28 (21-32) mmol/L BUN 22 24 H (6-23) mg/dl Creatinine 1.21 1.18 (0.6-1.4) mg/dl Glucose 106 H 109 H (70-99(Fasting)) mg/dl Calcium 9.3 9.2 (8.6-10.3) mg/dl AST 43 H (13-39) U/L ALT 27 (7-52) U/L Alkaline Phosphatase 37 (34-104) U/L Total Protein 6.4 (6.0-8.3) gm/dl Albumin 3.7 (3.4-5.0) gm/dl Intake and Output 11/24/24 11/25/24 11/25/24 22:59 06:59 14:59 Intake Total 418.333 / 418.333 15.333 / 15.333 Output Total 300 / 300 Balance 118.333 / 118.333 15.333 / 15.333 Intake: IV 418.333 / 418.333 15.333 / 15.333 Heparin 64739 Unit/500 ml 25, 330 / 330 000 units In 500 ml @ 1,650 UNITS/HR 33 mls/hr IV .[id number] ALYSE Rx#:[id number] dilTIAZem HCL 125 mg In 88.333 / 88.333 15.333 / 15.333 Dextrose 5% 100 ml @ 10 MG/HR 10 mls/hr IV .[id number] ALYSE Rx#: [id number] Output: Urine 300 / 300 Other: Weight 114.9 kg 110.9 kg Weight Measurement Method Standing Scale Diagnostic Findings Telemetry reviewed: Atrial flutter with controlled rates overnight (on dilt gtt). Currently in the 60's. This morning he had transient episode of atrial flutter with slow ventricular rates in the 30's lasting about 15 seconds. Diltiazem stopped. EKG reviewed from admission at 11/24/24 16:52: Atrial flutter with RVR at 126 bmp T wave abnormality in lateral leads EKG reviewed from this morning 11/25/24: Atrial flutter RVR Improved T wave abnormality in lateral l aye Echo reviewed form today 11/25/24: atrial flutter present during echo Mild concentric LVH Moderate global hypokinesis LVEF reduced at 37% LA is moderately dilated RA is mildly dilated Moderate TR Chest X-Ray 11/24/24 16:50 Exam: Chest one view IMPRESSION: Moderate cardiomegaly with pulmonary venous hypertension. Otherwise negative for acute disease. Electronically signed by Zay Campbell 11-24-2024 7:15 PM Venous Doppler Study 11/24/24 18:22 DVT ULTRASOUND BILATERAL LOWER EXTREMITY IMPRESSION: No evidence of deep venous thrombus in bilateral femoral-popliteal venous systems. Subcutaneous edema of both lower extremities. Electronically signed by Zan Caballero 11-24-2024 8:04 PM Medications Administered Current Inpatient Medications Acetaminophen (Acetaminophen 325 Mg Tab) 650 mg PO Q4H PRN PRN Reason: Pain or Fever Stop: 12/24/24 22:56 Albuterol (Albuterol Hfa 8 Gm Inhaler) 2 puffs INH Q4H PRN PRN Reason: sob Stop: 12/24/24 22:56 Atorvastatin Calcium (Atorvastatin 40 Mg Tab) 40 mg PO DAILY [facility] Stop: 12/25/24 08:59 Fluticasone/Vilanterol (Fluticasone/Vilanterol 200/25mcg 14 Puffs/Inhaler) 1 puffs INH DAILY ALYSE Stop: 12/25/24 08:59 Folic Acid (Folic Acid 1 Mg Tab) 1 mg PO QAM [facility] Stop: 12/25/24 08:59 Furosemide (Furosemide 40 Mg/4 Ml Vial) 40 mg IV BID [facility] Stop: 12/25/24 08:59 Gabapentin (Gabapentin 300 Mg Cap) 300 mg PO TID [facility] Stop: 12/24/24 22:56 Last Admin: 11/25/24 00:08 Dose: 300 mg Heparin Sodium/Dextrose (Heparin 82005 Unit/500 Ml) 25,000 units in 500 mls @ 33 mls/hr IV .[id number] [facility]; Protocol Stop: 12/24/24 20:44 Last Titration: 11/25/24 06:59 Dose: 1,650 units/hr, 33 mls/hr Magnesium Sulfate/Dextrose (Magnesium Sulfate / D5w) 1 gm in 100 mls @ 50 mls/hr IV Q2H [facility] Stop: 11/25/24 12:44 Lorazepam (Lorazepam 0.5 Mg Tab) 0.5 mg PO HS PRN PRN Reason: Anxiety Stop: 12/24/24 22:56 Lorazepam (Lorazepam 2 Mg/1 Ml Vial) 0.5 mg IV Q4H PRN PRN Reason: Anxiety/Agitation Stop: 12/24/24 22:56 Metoprolol Tartrate (Metoprolol Tartrate 25 Mg Tab) 25 mg PO QID [facility] Stop: 12/24/24 20:59 Last Admin: 11/25/24 00:08 Dose: 25 mg Miscellaneous (Fenofibrate 160 Mg Tablet--Order Awaiting Action) 1 each N/A QS [facility] Stop: 12/25/24 05:59 Last Admin: 11/25/24 00:44 Dose: Not Given Multivitamins (Multivitamin Tab) 1 tab PO DAILY [facility] Stop: 12/25/24 08:59 Nitroglycerin (Nitroglycerin Sl 0.4 Mg/Tab Tab) 0.4 mg SL Q5M PRN PRN Reason: Chest Pain Stop: 12/24/24 22:56 Polyethylene Glycol (Polyethylene (Miralax) 17 Gm Pack) 17 gm PO DAILY PRN PRN Reason: Constipation Stop: 12/24/24 22:56 Potassium Chloride (Potassium Chloride Crtab 20 Meq Tabcr) 40 meq PO NOW ONE Stop: 11/25/24 08:45 Thiamine HCl (Thiamine Hcl 50 Mg Tablet) 50 mg PO QAM [facility] Stop: 12/25/24 08:59
[2024-11-25] MEDS: MAGNESIUM SULFATE / D5W 1 GM/100 ML BAG IV SCH (09:44)
[2024-11-25] MEDS: POTASSIUM CHLORIDE CRTAB 20 MEQ TABCR PO ONE (09:44)
[2024-11-25] MEDS: FLUTICASONE/VILANTEROL 200/25MCG 14 PUFFS/INHALER INH SCH (09:46)
[2024-11-25] MEDS: MULTIVITAMIN TAB PO SCH (09:46)
[2024-11-25] MEDS: ATORVASTATIN 40 MG TAB PO SCH (09:46)
[2024-11-25] MEDS: FOLIC ACID 1 MG TAB PO SCH (09:47)
[2024-11-25] MEDS: THIAMINE HCL 50 MG TABLET PO SCH (09:47)
[2024-11-25] MEDS: FUROSEMIDE 40 MG/4 ML VIAL IV SCH ×2 (09:50→13:33)
[2024-11-25] MEDS ORDERED: LIDOCAINE 2% 2 ML VIAL/AMP(20MG/ML) INFIL ONE ×3 (11:02)
[2024-11-25] MEDS ORDERED: PROPOFOL IV EMULSION 10 MG/ML 20 ML VIAL IV ONE (11:04)
--- NOTE | 2024-11-25 11:24 | History & Physical Bridge Note ---
Date of Service November 25, 2024 History & Physical Bridge Note I have examined the patient, reviewed the History & Physical and in the interval since the performance of the History & Physical I have noted the following changes of clinical significance: no changes noted
--- NOTE | 2024-11-25 11:35 | Anesthesiology Consultation ---
Date of Service November 25, 2024 Assessment & Plan Chart Review Chart Review: Acceptable Risk for Surgery Consults Requested none History Surgery Operation Date: 11/25/24 11:15 Proposed Procedures p Transesophageal Echo w/Anesthesia - Alexis Ross DO Height/Weight Height: 5 ft 11 in Weight: 110.9 kg Allergies Allergy/AdvReac Type Severity Reaction Status Date / Time lisinopril Allergy Severe ANGIOEDEMA Verified 11/25/24 11:25 Medications Home Medications Medication Instructions Recorded Confirmed Last Taken albuterol sulfate 90 mcg/actuation 2 puff inhalation Q4H PRN sob 11/24/24 11/24/24 Unknown aerosol inhaler atorvastatin 40 mg tablet 40 mg PO DAILY 11/24/24 11/24/24 Unknown fenofibrate 160 mg tablet 160 mg PO DAILY 11/24/24 11/24/24 Unknown fluticasone 250 mcg-salmeterol 50 1 inh inhalation BID 11/24/24 11/24/24 Unknown mcg/dose blistr powdr for inhalation gabapentin 300 mg capsule 300 mg PO TID 11/24/24 11/24/24 Unknown lorazepam 0.5 mg tablet 0.5 mg PO HS PRN Anxiety 11/24/24 11/24/24 Unknown milk thistle 500 mg capsule 1,000 mg PO DAILY 11/24/24 11/24/24 Unknown multivitamin 1 tab PO DAILY 11/24/24 11/24/24 Unknown omega-3 fatty acids 1,000 mg 1,000 mg PO DAILY 11/24/24 11/24/24 Unknown capsule Active Medications Generic Name Dose Route Start Last Admin Trade Name Freq PRN Reason Stop Dose Admin Atorvastatin Calcium 40 mg 11/25/24 09:00 11/25/24 09:46 Atorvastatin 40 Mg Tab PO 12/25/24 08:59 40 mg DAILY ALYSE Administration Fluticasone/Vilanterol 1 puffs 11/25/24 09:00 11/25/24 09:46 Fluticasone/Vilanterol 200/25mcg 14 Puffs/Inhaler INH 12/25/24 08:59 1 puffs DAILY ALYSE Administration Folic Acid 1 mg 11/25/24 09:00 11/25/24 09:47 Folic Acid 1 Mg Tab PO 12/25/24 08:59 1 mg QAM ALYSE Administration Gabapentin 300 mg 11/24/24 22:57 11/25/24 09:46 Gabapentin 300 Mg Cap PO 12/24/24 22:56 300 mg TID ALYSE Administration Heparin Sodium/Dextrose 25,000 units in 500 mls @ 33 mls/hr 11/24/24 20:45 11/25/24 06:59 Heparin 95127 Unit/500 Ml IV 12/24/24 20:44 1,650 units/hr .[id number] ALYSE 33 mls/hr Titration Protocol 1,650 UNITS/HR Magnesium Sulfate/Dextrose 1 gm in 100 mls @ 50 mls/hr 11/25/24 09:00 11/25/24 11:15 Magnesium Sulfate / D5w IV 11/25/24 12:59 0 mls/hr Q2H ALYSE Infusion Metoprolol Tartrate 25 mg 11/24/24 21:00 11/25/24 09:45 Metoprolol Tartrate 25 Mg Tab PO 12/24/24 20:59 25 mg QID ALYSE Administration Miscellaneous 1 each 11/25/24 06:00 11/25/24 09:46 Fenofibrate 160 Mg Tablet--Order Awaiting Action N/A 12/25/24 05:59 Not Given QS ALYSE Multivitamins 1 tab 11/25/24 09:00 11/25/24 09:46 Multivitamin Tab PO 12/25/24 08:59 1 tab DAILY ALYSE Administration Thiamine HCl 50 mg 11/25/24 09:00 11/25/24 09:47 Thiamine Hcl 50 Mg Tablet PO 12/25/24 08:59 50 mg QAM ALYSE Administration Past Medical History Medical History (Updated 11/25/24 @ 11:02 by Padmini Red PA-C) Seasonal allergies inhaler PRN listed on medications/no hx asthma/copd noted per RN phone assessment Past Family History Family History Father Stroke AAA (abdominal aortic aneurysm) Smoker Mother Coronary heart disease Hypertension Smoker Uncle Prostate cancer Diverticulitis Past Surgical History Surgical History Hx of lumbar discectomy x2 Hx of colonoscopy Social History Smoking Status: Never smoker tobacco type: cigarettes Do You Dip or Chew Tobacco: No Hx Alcohol Use: Yes Alcohol type: beer alcohol intake frequency: 3 or more drinks per day Alcohol Intake Frequency Comment: pt. states he is a recovering drinker Hx Substance Use: No substance use type: does not use Physical Exam Vital Signs Last Vital Signs Temp 36.6 C 11/25/24 11:18 Pulse 77 11/25/24 11:18 Resp 20 11/25/24 11:18 BP 119/85 11/25/24 11:18 Pulse Ox 99 11/25/24 11:18 O2 Del Method Room Air 11/25/24 11:18 Testing Laboratory Results 11/25/24 03:27 11/25/24 03:27 PT 14.6 Seconds (9.0-12.0) H 11/24/24 18:30 INR 1.4 (0.9-1.1) H 11/24/24 18:30 APTT 26 Seconds (21-31) 11/24/24 18:30
--- NOTE | 2024-11-25 11:57 | Post Operative Brief Note ---
Cardiology Brief Post Op Date of Surgery November 25, 2024 Pre & Post Diagnosis Operation Date: 11/25/24 11:15 Procedure Preprocedure diagnosis: Rule out left atrial/left atrial appendage thrombus, atrial flutter Postprocedure diagnosis: No left atrial or left atrial appendage thrombus, successful conversion to sinus rhythm Transesophageal echocardiogram guided direct-current cardioversion procedure n ote: The patient's vital signs were monitored via the standard fashion. After informed consent was obtained and a timeout was performed the patient was sedated with the assistance of the anesthesia service receiving a total of 230 mg of IV propofol 125 mg with lidocaine. Patient underwent a focused transesophageal echocardiogram for restratification. There was no left atrial or left atrial appendage thrombus. The interatrial septum was not immobile with a mild right to left interatrial shunt documented with demonstration of entrance saline contrast. The patient underwent direct-current cardioversion receiving 200 J of synchronized biphasic energy with successful conversion to sinus rhythm. Planner Intern Alexis Ross DO Ditch Repairer Agatha Cat, RCS Estimated Blood Loss 0 Findings Consistent with Post-Op Diagnosis as noted above Anesthesia Type MAC Complications No complications were immediately apparent
--- NOTE | 2024-11-25 12:00 | Cardioversion ---
Date of Service November 25, 2024 Electrical Cardioversion Rpt Electrical Cardioversion Report Operation Date: 11/25/24 11:15 Procedure Preprocedure diagnosis: Rule out left atrial/left atrial appendage thrombus, atrial flutter Postprocedure diagnosis: No left atrial or left atrial appendage thrombus, successful conversion to sinus rhythm Transesophageal echocardiogram guided direct-current cardioversion procedure note: The patient's vital signs were monitored via the standard fashion. After informed consent was obtained and a timeout was performed the patient was sedated with the assistance of the anesthesia service receiving a total of 230 mg of IV propofol 125 mg with lidocaine. Patient underwent a focused transesophageal echocardiogram for restratification. There was no left atrial or left atrial appendage thrombus. The interatrial septum was not immobile with a mild right to left interatrial shunt documented with demonstration of entrance saline contrast. The patient underwent direct-current cardioversion receiving 200 J of synchronized biphasic energy with successful conversion to sinus rhythm. Log Chipper Operator Alexis Ross DO Gravity Prospecting Observer MELBA Neil Findings as noted above Anesthesia Type MAC Complications No complications were immediately apparent
[2024-11-25] MEDS: BENZOCAINE/TETRACAIN/BUTAM 50 APPLN/5 GM CAN EXT ONE (12:13)
--- NOTE | 2024-11-25 12:22 | Anesthesiology Progress Note ---
Date of Service November 25, 2024 Anesthesia Post Procedure Vital Signs Vital Signs: Temp Pulse Pulse Pulse Resp BP BP 11/25/24 12:15 80 14 100/64 11/25/24 12:00 77 14 110/61 11/25/24 11:18 36.6 C 77 20 119/85 11/25/24 08:15 36.6 C 70 18 111/78 11/25/24 04:02 70 11/25/24 03:07 36.4 C L 139 H 19 105/64 11/25/24 00:10 113/40 L 11/24/24 23:10 36.6 C 138 H 20 123/78 11/24/24 23:00 11/24/24 23:00 36.6 C 124 H 18 123/78 11/24/24 22:06 130 H 11/24/24 21:39 139 H 16 126/100 11/24/24 18:37 142 H 122/93 11/24/24 18:18 141 H 11/24/24 18:12 99 H 18 11/24/24 17:59 11/24/24 17:59 142 H 15 119/84 11/24/24 16:45 36.4 C L 140 H 22 136/89 Pulse Ox O2 Del Method 11/25/24 12:15 100 Room Air 11/25/24 12:00 100 Room Air 11/25/24 11:18 99 Room Air 11/25/24 08:15 99 Room Air 11/25/24 04:02 11/25/24 03:07 96 Room Air 11/25/24 00:10 11/24/24 23:10 96 Room Air 11/24/24 23:00 Room Air 11/24/24 23:00 96 Room Air 11/24/24 22:06 11/24/24 21:39 11/24/24 18:37 11/24/24 18:18 11/24/24 18:12 11/24/24 17:59 99 Room Air 11/24/24 17:59 99 Room Air 11/24/24 16:45 98 Room Air Transfer of Care Handoff Completed per policy Notes Mental Status: alert / awake / arousable and participated in evaluation Patient Amnestic to Procedure: Yes Nausea / Vomiting: adequately controlled Pain: adequately controlled Airway Patency, RR, SpO2: stable & adequate BP & HR: stable & adequate Hydration State: stable & adequate Anesthetic Complications: no major complications apparent
--- NOTE | 2024-11-25 12:42 | Electrocardiogram Report ---
Test Reason : Blood Pressure : */* mmHG Vent. Rate : 126 BPM Atrial Rate : 286 BPM P-R Int : * ms QRS Dur : 94 ms QT Int : 314 ms P-R-T Axes : * 58 95 degrees QTcB Int : 454 ms Atrial flutter with variable A-V block Minimal voltage criteria for LVH, may be normal variant Abnormal ECG When compared with ECG of 13-Oct-2019 15:57, Atrial flutter has replaced Sinus rhythm Vent. rate has increased by [address] elevation now present in Inferior leads Nonspecific T wave abnormality now evident in Lateral leads Confirmed by Geoff Higginbotham ([id number]) on 11/25/2024 12:41:38 PM Referred By: Virginia Olivo Confirmed By: Geoff Higginbotham
--- NOTE | 2024-11-25 12:45 | Electrocardiogram Report ---
Test Reason : Blood Pressure : */* mmHG Vent. Rate : 140 BPM Atrial Rate : 140 BPM P-R Int : 88 ms QRS Dur : 108 ms QT Int : 376 ms P-R-T Axes : * 44 82 degrees QTcB Int : 574 ms Atrial flutter with 2 to 1 block Minimal voltage criteria for LVH, may be normal variant ST elevation, consider early repolarization, pericarditis, or injury Abnormal ECG When compared with ECG of 24-Nov-2024 16:52, (unconfirmed) No significant change Confirmed by Geoff Higginbotham ([id number]) on 11/25/2024 12:45:44 PM Referred By: Virginia Olivo Confirmed By: Geoff Higginbotham
--- NOTE | 2024-11-25 12:50 | Electrocardiogram Report ---
Test Reason : Blood Pressure : */* mmHG Vent. Rate : 69 BPM Atrial Rate : 276 BPM P-R Int : * ms QRS Dur : 94 ms QT Int : 416 ms P-R-T Axes : 254 33 82 degrees QTcB Int : 445 ms Atrial flutter with 4:1 A-V conduction Minimal voltage criteria for LVH, may be normal variant Nonspecific T wave abnormality Abnormal ECG When compared with ECG of 24-Nov-2024 21:24, (unconfirmed) Vent. rate has decreased by [address] no longer elevated in Inferior leads ST no longer elevated in Anterior leads T wave inversion now evident in Anterior leads Confirmed by Geoff Higginbotham ([id number]) on 11/25/2024 12:50:34 PM Referred By: Virginia Olivo Confirmed By: Goeff Higginbotham
--- NOTE | 2024-11-25 13:03 | Electrocardiogram Report ---
Test Reason : Blood Pressure : */* mmHG Vent. Rate : 80 BPM Atrial Rate : 80 BPM P-R Int : 280 ms QRS Dur : 98 ms QT Int : 398 ms P-R-T Axes : * 49 55 degrees QTcB Int : 459 ms Sinus rhythm with occasional Premature atrial complexes Anterior infarct , age undetermined Abnormal ECG When compared with ECG of 25-Nov-2024 05:54, (unconfirmed) Sinus rhythm has replaced Atrial flutter Confirmed by Geoff Higginbotham ([id number]) on 11/25/2024 1:03:02 PM Referred By: Virginia Olivo Confirmed By: Geoff Higginbotham
--- NOTE | 2024-11-25 14:11 | Emergency Department Note ---
Impression & Plan Atrial flutter with rapid ventricular response, VILLAREAL (dyspnea on exertion), Fluid overload, Pedal edema, Elevated troponin ED Provider Note NAME: BARBARA OSULLIVAN AGE: 59 SEX: M : 1965 ARRIVES VIA: Walk-In INFORMANT: [Patient] ED PROVIDER(S): [Tyree Hunter MD] CHIEF COMPLAINT: Short of breath, Dr. Referred HISTORY OF PRESENT ILLNESS: The patient is a 59-year-old male who states that he has noticed some swelling of his legs for 2 weeks. The swelling seems to extend to his groin. He also has been short of breath. He noticed he felt dizzy and short of breath with exertion and with going up stairs. He noticed some palpitations at times. No chest pain, no fever. No vomiting or diarrhea. The patient went to the [facility] office today and was referred to the ER as he was tachycardic and quite fluid overloaded. Of note, the patient is not on blood thinning agents. He has no history of dysrhythmia. PMHx/PSHx/Social Hx: See Below PHYSICAL EXAM: GENERAL: Patient is in no acute distress. HEENT: No acute trauma, normocephalic atraumatic, mucous membranes moist, no nasal congestion. NECK: No stridor, no adenopathy, no meningismus, trachea is midline. LUNGS: Diminished breath sounds bilaterally, no respiratory distress. HEART: Tachycardic and somewhat irregular. ABDOMEN: Soft, nontender, no peritonitis. EXTREMITIES: No cyanosis, full range of motion of all the joints without pain or difficulty. Marked bilateral pedal edema that extends up to the thighs/groin. NEUROLOGIC: Oriented x 3, no acute motor or sensory deficits, no focal weakness. SKIN: No jaundice, no diaphoresis. DIFFERENTIAL DIAGNOSIS: CHF, NH, dysrhythmia, anemia, electrolyte imbalance, among others. EMERGENCY DEPARTMENT PROCEDURES: MEDICAL DECISION MAKING: There is no leukocytosis. A mild anemia was seen but this appears baseline when looking back at previous testing. There was a normal platelet count. INR somewhat elevated at 1.4, PTT was normal. There was no renal failure or significant electrolyte abnormality. No concerning liver enzyme elevation. ECG showed rapid atrial flutter. Cardiac enzyme testing x 1 was slightly elevated. This troponin elevation could be secondary to cardiac injury or just mismatch from the tachycardia. The patient appeared to be in a euthyroid state. Chest x-ray showed cardiomegaly, no worrisome CHF. On exam, the patient was tachycardic and quite fluid overloaded, he had significant pedal edema up to the groin. The patient was given IV metoprolol to help slow the heart rate. He received IV Lasix to help with diuresis. The patient is in need of a hospital stay. He is in a new onset rapid atrial flutter, he is significantly fluid overloaded. He presents dyspneic, there is a mild troponin elevation. Further cardiac workup/care is warranted. I spoke with the patient and rn case manager. The on-call hospitalist was consulted. Prior/Outside records/notes reviewed: None ECG per my interpretation: Indication was shortness of breath. The ECG shows a rapid atrial flutter with a rate of 126. No concerning ST elevation, no PVCs. The QTc was 454. Continuous Cardiac Monitoring per my interpretation: An order was placed for continuous cardiac monitoring. The monitor shows a rate of 115 with atrial flutter. Imaging/x-ray results per my interpretation: Chest x-ray shows some cardiomegaly and some mild pulmonary congestion. No pneumothorax or pneumonia. Chronic Medical/Social conditions affecting care: None Care/Management discussed with: Case management, the on-call hospitalist. Level of care consideration(s): After review of the information above and other included data: --I believe the patient requires escalation of care to admission Critical Care Note: I have personally spent 45 minutes of critical care time in the direct management of this patient. This includes bedside care, interpretation of diagnostic studies, and testing, discussion with consultants, patient, and family members, and other required patient management activities. This 45 minutes is in excess of all separately billable procedures. DISPOSITION: Admission Past Med/Surg History Problem List Elevated troponin (Acute) Pedal edema (Acute) Fluid overload (Acute) VILLAREAL (dyspnea on exertion) (Acute) Atrial flutter with rapid ventricular response (Acute) Acute on chronic heart failure with reduced ejection fraction and diastolic dysfunction Atrial flutter with rapid ventricular response Wound dehiscence S/P tendon repair Alcohol use disorder Post-operative infection Rupture of right triceps tendon (Acute) Lymphedema (Chronic) Left foot drop (Chronic) Pre-diabetes (Chronic) DVT prophylaxis History of tonsillectomy (Chronic) HTN (hypertension) (Chronic) Anxiety (Chronic) History of lumbar surgery (Chronic) L4-L5 decompression, residual drop left foot Medical History (Updated 11/25/24 @ 14:11 by Tyree Hunter MD) Seasonal allergies inhaler PRN listed on medications/no hx asthma/copd noted per RN phone assessment Surgical History Hx of lumbar discectomy x2 Hx of colonoscopy Family History Father Stroke AAA (abdominal aortic aneurysm) Smoker Mother Coronary heart disease Hypertension Smoker Uncle Prostate cancer Diverticulitis Social History Smoking Status: Never smoker packs per day: 1; Second Hand Exposure: No; Do You Dip or Chew Tobacco: No; Hx Alcohol Use: Yes Alcohol type: beer Alcohol Intake Frequency Comment: significant alcohol hx. reportedly decreased to 6 pack daily Hx Substance Use: No Preferred Language: Maldivian Communication Ability: Effective Leaflet Or Newspaper Deliverer Required: No Beliefs That Will Affect Care: None marital status: Current Living Situation: Alone Feels Safe at Home: Yes Safety Concerns: Feels Safe At This Time Childhood Exposure to Second-Hand Smoke: Yes Assistive Devices: None Allergies Allergies Allergy/AdvReac Type Severity Reaction Status Date / Time lisinopril Allergy Severe ANGIOEDEMA Verified 11/25/24 11:25 Home Meds Home Medications Medication Instructions Recorded Confirmed albuterol sulfate 90 mcg/actuation 2 puff inhalation Q4H PRN sob 11/24/24 11/24/24 aerosol inhaler atorvastatin 40 mg tablet 40 mg PO DAILY 11/24/24 11/24/24 fenofibrate 160 mg tablet 160 mg PO DAILY 11/24/24 11/24/24 fluticasone 250 mcg-salmeterol 50 1 inh inhalation BID 11/24/24 11/24/24 mcg/dose blistr powdr for inhalation gabapentin 300 mg capsule 300 mg PO TID 11/24/24 11/24/24 lorazepam 0.5 mg tablet 0.5 mg PO HS PRN Anxiety 11/24/24 11/24/24 milk thistle 500 mg capsule 1,000 mg PO DAILY 11/24/24 11/24/24 multivitamin 1 tab PO DAILY 11/24/24 11/24/24 omega-3 fatty acids 1,000 mg 1,000 mg PO DAILY 11/24/24 11/24/24 capsule Results & Data (ED) Vital Signs Vital Signs - 24 hr 11/24/24 16:45 11/24/24 17:59 11/24/24 17:59 Temperature 36.4 C L Temperature Source Skin Pulse Rate 140 H Pulse Rate [Right Finger] 142 H Pulse Rhythm [Right Finger] Regular Pulse Strength [Right Finger] Normal Respiratory Rate 22 15 Respiratory Effort / Characteristics Spontaneous Short of Breath Non-Labored Respiratory Depth Normal Normal Respiratory Pattern Regular Regular Blood Pressure 136/89 Blood Pressure [Right Arm] 119/84 Blood Pressure Mean 104 Blood Pressure Mean [Right Arm] 95 Blood Pressure Position [Right Arm] Lying Pulse Oximetry 98 99 99 Oxygen Delivery Method Room Air Room Air Room Air Sepsis Recent Fever Within 48 Hours No Sepsis New/Unexplained Change in Mental Status N/A Sepsis Action Taken by Nursing No Action Required 11/24/24 18:12 11/24/24 18:18 11/24/24 18:37 Temperature Temperature Source Pulse Rate 141 H 142 H Pulse Rate [Right Finger] 99 H Pulse Rhythm [Right Finger] Pulse Strength [Right Finger] Respiratory Rate 18 Respiratory Effort / Characteristics Respiratory Depth Respiratory Pattern Blood Pressure 122/93 Blood Pressure [Right Arm] Blood Pressure Mean Blood Pressure Mean [Right Arm] Blood Pressure Position [Right Arm] Pulse Oximetry Oxygen Delivery Method Sepsis Recent Fever Within 48 Hours Sepsis New/Unexplained Change in Mental Status Sepsis Action Taken by Long-Term Medications Current Medication List: was personally reviewed by me Laboratory Data Attestation: I reviewed the patient's lab results. 11/25/24 03:27 11/25/24 03:27 Lab Results 11/24/24 11/24/24 Range/Units 17:00 18:30 WBC 4.63 L (4.8-10.8) K/ul RBC 3.97 L (4.70-6.10) M/uL Hgb 12.4 L (14.0-18.0) g/dl Hct 37.2 L (42.0-52.0) % MCV 93.7 (80.0-100.0) fL MCH 31.2 (25.0-34.0) pg MCHC 33.3 (32.0-36.0) g/dL RDW Std Deviation 52.6 H (36.4-46.3) fL RDW Coeff of Tamera 15.2 H (11.5-14.5) % Plt Count 235 (130-400) K/uL MPV 9.7 (9.4-12.4) fL Immature Gran % (Auto) 0.6 % Neut % (Auto) 63.6 % Lymph % (Auto) 21.2 % [place] % (Auto) 12.5 % Eos % (Auto) 1.5 % Baso % (Auto) 0.6 % Neut # (Auto) 2.94 (1.40-6.50) K/uL Lymph # (Auto) 0.98 L (1.20-3.40) K/uL [place] # (Auto) 0.58 (0.11-0.59) K/uL Eos # (Auto) 0.07 (0.00-0.50) K/uL Baso # (Auto) 0.03 (0.00-0.20) K/uL Immature Gran # (Auto) 0.03 (0.01-0.20) K/uL PT Cancelled 14.6 H INR Cancelled 1.4 H APTT Cancelled 26 PTT Ratio Cancelled 1.0 Sodium 139 (136-145) mmol/L Potassium 3.6 (3.5-5.1) mmol/L Chloride 103 (98-107) mmol/L Carbon Dioxide 32 (21-32) mmol/L Anion Gap 4 (3-11) BUN 22 (6-23) mg/dl Creatinine 1.21 (0.6-1.4) mg/dl Est Cr Clr Drug Dosing 83.7 ml/min eGFR 68.55 BUN/Creatinine Ratio 18.2 (10-20) Glucose 106 H (70-99(Fasting)) mg/dl Calcium 9.3 (8.6-10.3) mg/dl Magnesium 1.8 (1.7-2.4) mg/dl Total Bilirubin 0.6 (0.2-1.0) mg/dl AST 43 H (13-39) U/L ALT 27 (7-52) U/L Alkaline Phosphatase 37 (34-104) U/L Troponin I High Sens 34.2 H 38.0 H (0-20) pg/ml Total Protein 6.4 (6.0-8.3) gm/dl Albumin 3.7 (3.4-5.0) gm/dl Globulin 2.7 (2.5-4.0) gm/dl Albumin/Globulin Ratio 1.4 (0.9-2) TSH 3.764 (0.300-4.500) uIu/ml Administered Medications Atorvastatin Calcium (Atorvastatin 40 Mg Tab) 40 mg PO DAILY ALYSE Stop: 12/25/24 08:59 Last Admin: 11/25/24 09:46 Dose: 40 mg Documented By: ALEXANDRA Fluticasone/Vilanterol (Fluticasone/Vilanterol 200/25mcg 14 Puffs/Inhaler) 1 puffs INH DAILY ALYSE Stop: 12/25/24 08:59 Last Admin: 11/25/24 09:46 Dose: 1 puffs Documented By: ALEXANDRA Folic Acid (Folic Acid 1 Mg Tab) 1 mg PO QAM ALYSE Stop: 12/25/24 08:59 Last Admin: 11/25/24 09:47 Dose: 1 mg Documented By: ALEXANDRA Furosemide (Furosemide 40 Mg/4 Ml Vial) 60 mg IV [id number] ALYSE Stop: 12/25/24 13:59 Last Admin: 11/25/24 13:33 Dose: 60 mg Documented By: ALEXANDRA Gabapentin (Gabapentin 300 Mg Cap) 300 mg PO TID [facility] Stop: 12/24/24 22:56 Last Admin: 11/25/24 13:33 Dose: 300 mg Documented By: Admin: 11/25/24 09:46 Dose: 300 mg Documented By: Admin: 11/25/24 00:08 Dose: 300 mg Documented By: PREET Heparin Sodium/Dextrose (Heparin 23487 Unit/500 Ml D5w) 25,000 units in 500 mls @ 33 mls/hr IV .[id number] [facility]; Protocol Stop: 11/25/24 21:00 Last Admin: 11/25/24 13:10 Dose: 1,650 units/hr, 33 mls/hr Documented By: ALEXANDRA Co-signed By: SIMONE Titration: 11/25/24 12:09 Dose: Infused Documented By: ALEXANDRA Co-signed By: SIMONE Titration: 11/25/24 06:59 Dose: 1,650 units/hr, 33 mls/hr Documented By: ALEXANDRA Co-signed By: PREET Admin: 11/24/24 20:59 Dose: 1,650 units/hr, 33 mls/hr Documented By: JEREMI Co-signed By: HI Miscellaneous (Fenofibrate 160 Mg Tablet--Order Awaiting Action) 1 each N/A QS [facility] Stop: 12/25/24 05:59 Last Admin: 11/25/24 09:46 Dose: Not Given Documented By: Admin: 11/25/24 00:44 Dose: Not Given Documented By: PREET Multivitamins (Multivitamin Tab) 1 tab PO DAILY [facility] Stop: 12/25/24 08:59 Last Admin: 11/25/24 09:46 Dose: 1 tab Documented By: ALEXANDRA Thiamine HCl (Thiamine Hcl 50 Mg Tablet) 50 mg PO QAM [facility] Stop: 12/25/24 08:59 Last Admin: 11/25/24 09:47 Dose: 50 mg Documented By: ALEXANDRA Discontinued Medications Benzocaine/Butamben/Tetracaine HCl (Benzocaine/Tetracain/Butam 50 Appln/5 Gm Can) Confirm Administered Dose 50 appln EXT .STK-MED ONE Stop: 11/25/24 11:20 Last Admin: 11/25/24 12:13 Dose: 50 appln Documented By: JOSE Furosemide (Furosemide 40 Mg/4 Ml Vial) 40 mg IV ONE ONE Stop: 11/24/24 18:23 Last Admin: 11/24/24 18:38 Dose: 40 mg Documented By: JEREMI Furosemide (Furosemide 40 Mg/4 Ml Vial) 40 mg IV BID [facility] Stop: 12/25/24 08:59 Last Admin: 11/25/24 09:50 Dose: 40 mg Documented By: ALEXANDRA Heparin Sodium (Porcine) (Heparin Sod (Porcine) 1000 Unit/Ml) 7,000 units IV NOW ONE Stop: 11/24/24 20:40 Last Admin: 11/24/24 21:00 Dose: 7,000 units Documented By: JEREMI Co-signed By: HI Heparin Sodium/Dextrose (Heparin Iv Adult Wt-Based Standard W/ Initial Bolus Protocol) 1 each IV NOW STA; Protocol Stop: 11/24/24 20:25 Last Admin: 11/24/24 21:03 Dose: Not Given Documented By: JEREMI Diltiazem HCl 125 mg/ Dextrose 125 mls @ 5 mls/hr IV .Q24H [facility]; Protocol Stop: 12/24/24 20:29 Last Titration: 11/25/24 09:11 Dose: Infused Documented By: ALEXANDRA Co-signed By: SIMONE Titration: 11/25/24 08:31 Dose: 5 mg/hr, 5 mls/hr Documented By: ALEXANDRA Co-signed By: SIMONE Titration: 11/25/24 06:59 Dose: 10 mg/hr, 10 mls/hr Documented By: ALEXANDRA Co-signed By: PREET Titration: 11/24/24 23:15 Dose: 10 mg/hr, 10 mls/hr Documented By: PREET Co-signed By: MARTIR Admin: 11/24/24 21:03 Dose: 5 mg/hr, 5 mls/hr Documented By: JEREMI Co-signed By: HI Folic Acid 1 mg/ Syringe 10 mls @ 5 mls/min IV 2044 ONE Stop: 11/24/24 20:46 Last Admin: 11/24/24 22:00 Dose: 5 mls/min Documented By: JEREMI Thiamine HCl 100 mg/ Syringe 10 mls @ 2 mls/min IV 2044 ONE Stop: 11/24/24 20:49 Last Admin: 11/24/24 21:01 Dose: 2 mls/min Documented By: JEREMI Magnesium Sulfate/Dextrose (Magnesium Sulfate / D5w) 1 gm in 100 mls @ 50 mls/hr IV Q2H [facility] Stop: 11/25/24 12:59 Last Admin: 11/25/24 13:32 Dose: 50 mls/hr Documented By: Infusion: 11/25/24 13:12 Dose: Infused Documented By: Infusion: 11/25/24 12:42 Dose: 50 mls/hr Documented By: Infusion: 11/25/24 11:15 Dose: 0 mls/hr Documented By: Admin: 11/25/24 09:44 Dose: 50 mls/hr Documented By: ALEXANDRA Metoprolol Tartrate (Metoprolol Tartrate 1 Mg/Ml Vial) 5 mg IV NOW STA Stop: 11/24/24 18:25 Last Admin: 11/24/24 18:37 Dose: 5 mg Documented By: JEREMI Metoprolol Tartrate (Metoprolol Tartrate 25 Mg Tab) 25 mg PO QID [facility] Stop: 12/24/24 20:59 Last Admin: 11/25/24 09:45 Dose: 25 mg Documented By: Admin: 11/25/24 00:08 Dose: 25 mg Documented By: PREET Potassium Chloride (Potassium Chloride Crtab 20 Meq Tabcr) 40 meq PO NOW ONE Stop: 11/25/24 08:45 Last Admin: 11/25/24 09:44 Dose: 40 meq Documented By: ALEXANDRA Discharge Plan Visit Data Chief Complaint: Cardiac Assessment Stated Complaint: AFIB, SENT BY PROVIDER, SOB, ED Provider: Tyree Hunter Discharge Problem: Atrial flutter with rapid ventricular response, VILLAREAL (dyspnea on exertion), Fluid overload, Pedal edema, Elevated troponin Patient Disposition: Admitted As Inpatient Condition: Serious Discharge Instructions Interventions: ED Discharge Assessment Last Done: 11/24/24 22:19 Discharge Problem: Fluid overload Qualifiers: Hypervolemia type: unspecified Qualified Code(s): E87.70 - Fluid overload, unspecified
--- NOTE | 2024-11-25 15:18 | Hospitalist Progress Note ---
Date of Service November 25, 2024 Assessment & Plan (1) Atrial flutter with rapid ventricular response: Plan: per admitting service notes with addendum: 59-year-old male with past medical history significant for prediabetes, asthma, hypertension, CKD stage III, history of diverticulitis of colon, hydrocele, left foot drop, anxiety, history of tobacco use comes because of new onset flutter and CHF. Patient says having bilateral extremity swelling going on for last 2 weeks. Progressively worsening. He has left lower extremity edema on and off from lymphedema but now has edema in both legs. His scrotum is also swollen. He thinks he also has right inguinal hernia. No pain at inguinal hernia site. He is also getting short of breath on exertion. Sometimes in the night he is getting up gasping for breath. He does not lie flat. Sometimes feeling dizzy last 2 weeks. Went to PCP and found to be in rapid A flutter and was advised to come to the ER. Hemodynamics are okay. Denies any chest pain. No nausea. Afebrile. No cough. Vision is okay. No runny nose or sore throat. Says currently he is drinking alcohol only once in a while. A flutter with rapid ventricular response New onset Troponin 34 and repeat 38 and repeat is 35 Started on Cardizem drip 5 to 10milligram per hour Metoprolol 25 mg p.o. 4 times daily IV heparin N.p.o. for now Telemetry Will follow serial enzymes and echo Cardiology consult for further recommendation 11/25 s/p Cardioversion converted to SR Metoprolol XL 50mg BID transitioned from heparin to Eliquis Acute CHF Bilateral lower extremity edema Dyspnea on exertion Chest x-ray moderate cardiomegaly with pulmonary venous hypertension No DVT on Dopplers of lower extremity Received IV Lasix 40 mg in the ER Will Continue with IV Lasix 40 mg twice daily Daily weights and I's and O's Will follow echo Telemetry Cardiology consult in a.m. further recommendation 11/25 on Lasix 60mg IV BID History of CKD stage III Presented with creatinine 1.2 We will follow labs History of alcoholism Currently denies regular alcohol use Thiamine and folic acid IV Ativan as needed Will monitor Hypertension Not on meds We will monitor Prediabetes Will follow HbA1c levels History of asthma Continue home inhalers Hyperlipidemia Statin Right inguinal hernia Needs follow-up DVT prophylaxis Eliquis Disposition lives at home with family Full code. Admission and Anticipated Discharge Date Admission Date: November 24, 2024 Subjective ff up for a fib, etc seen resting in bed, comfortable sp cardioversion today in good spirits no chest pain, dyspnea, palpitations, dizziness no other symptoms Review of Systems Review of Systems: all noted and negative except for above Results & Data Results & Data Vital Signs (Past 12 Hours) Vital Signs Temp Pulse Pulse Resp BP Pulse Ox O2 Del Method 11/25/24 12:58 88 16 106/60 100 Room Air 11/25/24 12:15 80 14 100/64 100 Room Air 11/25/24 12:00 77 14 110/61 100 Room Air 11/25/24 11:18 36.6 C 77 20 119/85 99 Room Air 11/25/24 08:15 36.6 C 70 18 111/78 99 Room Air 11/25/24 04:02 70 all noted and reviewed including below
[2024-11-25] MEDS: APIXABAN 5 MG TABLET PO SCH (20:29)
[2024-11-25] MEDS: METOPROLOL SUCC 50MG EXT REL TAB PO SCH (20:29)
[2024-11-25] MEDS: [UNRECOGNIZED DRUG - REMARK] ONE (20:29)
[2024-11-26 07:32] LABS: Hematocrit (blood only) 39.5 % (42.0-52.0); Hemoglobin 13.1 g/dl (14.0-18.0); Mean Corpuscular Hgb Conc 33.2 g/dL (32.0-36.0); Mean Corpuscular Volume 93.4 fL (80.0-100.0); Mean Platelet Volume 9.7 fL (9.4-12.4); Platelet Count 210 K/uL (130-400); RDW Coefficient of Variation 15.6 % (11.5-14.5); RDW Standard Deviation 53.3 fL (36.4-46.3); Red Blood Count 4.23 M/uL (4.70-6.10); White Blood Count 4.38 K/ul (4.8-10.8)
[2024-11-26 07:54] LABS: ANTI-Xa, UFH(UnfractionatedHep 0.32 IU/ml (0.3-0.7)
[2024-11-26 07:58] LABS: Albumin Globulin Ratio 1.3 (0.9-2); Albumin Level 3.9 gm/dl (3.4-5.0); BUN Creatinine Ratio 21.1 (10-20); Bilirubin,Total 0.9 mg/dl (0.2-1.0); Calcium 9.4 mg/dl (8.6-10.3); Creatinine Clr Calc Pharmacy 74.9 ml/min; Globulin 3.1 gm/dl (2.5-4.0)
[2024-11-26] MEDS: FENOFIBRATE NANOCRYSTALLIZED 145 MG TABLET PO SCH (08:34)
[2024-11-26 09:30] LABS: Estimated Average Glucose 108 mg/dl; Hemoglobin A1C 5.4 % (4.5-5.6)
[2024-11-26] MEDS: SPIRONOLACTONE 12.5 MG TAB PO SCH (11:59)
--- NOTE | 2024-11-26 14:14 | Cardiology Progress Note ---
Date of Service November 26, 2024 Assessment & Plan (1) Atrial flutter with rapid ventricular response: (2) Acute on chronic heart failure with reduced ejection fraction and diastolic dysfunction: (3) HTN (hypertension): (4) Mobitz (type) I (Wenckebach's) atrioventricular block: Plan 11/25/24 Patient admitted with newly diagnosed atrial flutter RVR. Duration unknown, but based on symptoms of dyspnea and worsening edema, likely present for at least 1 month. Continue IV heparin. Heart rates improved with oral metoprolol and IV diltiazem gtt overnight. Diltiazem discontinued due to atrial flutter with slow rates and findings of reduced LVEF. Echo this morning revealed moderate global hypokinesis with LVEF 37%. Likely tachyinduced. CHADSVASC score of 2-3 (CHF, HTN, and borderline DM - not currently treated). [facility] anticoagulation will be needed with Eliquis 5 mg BID on discharge. Long discussion with patient about treatment options for atrial flutter. Given his newly diagnosed cardiomyopathy and difficult to control rates, recommend proceeding with TEJAS/CV in attempts to restore NSR. Post cardioversion, will transition oral metoprolol tartrate to metoprolol succinate. He is agreeable. Currently NPO. In regards to treatment for his newly diagnosed cardiomyopathy; HFrEF Ongoing diuretic therapy recommended for LE edema. Venous duplex negative for DVT Increase lasix to 60 mg IV BID. Add spironolactone 12.5 mg daily Monitor electrolytes Monitor I+O's Daily weight with standing scale. Start metoprolol succinate If BP allows, would benefit from Entresto. 11/26/24: Patient underwent successful TEJAS guided cardioversion yesterday and NSR rest ored. Maintaining NSR today. Continue metoprolol 50 mg BID. Transitioned to Eliquis 5 mg BID. (outpatient script sent to [facility] and to verify cost and make sure it is affordable) He has ongoing LE edema b/l. Likely multifactorial given his HFrEF, high dose gabapentin and he does have significant varicosities noted. Recommend one additional day of IV diuretics. Monitor I+O's He is negative 2.7 L since admission Continue furosemide 60 mg IV BID today. Spironolactone 12.5 mg daily added. Monitor renal function and electrolytes He will need oral furosemide upon discharge. Findings of new cardiomyopathy upon admission, Likely tachyinduced, LVEF 37%. GDMT initiated Continue metoprolol succinate. He has allergy to lisinopril (angioedema) - therefore, trial of MIRIAM/ARB or Entresto is contraindicated. Spironolactone initiated will transition to loop diuretic on discharge. Consider outpatient nuclear lexiscan to further evaluation LVEF as well. He may benefit from outpatient vascular evaluation with [facility] due to his significant varicosities Case discussed with Dr. Ross. I spent a total of 30 minutes on the date of service in preparation, delivery, and documentation of the care provided to this patient, excluding any time spent in the performance of separately billed services. Padmini Red PA-C Department of Cardiology, [facility] This chart was completed in part utilizing Speech Voice Recognition Software. Grammatical errors, random word insertions, pronoun errors, and incomplete sentences are an occasional consequence of this system due to software li mitations, ambient noise, and hardware issues. Any formal questions or concerns about the content, text, or information contained within the body of this dictation should be directly addressed to the provider for clarification. Admission and Anticipated Discharge Date Admission Date: November 24, 2024 Supervising Physician Co-Signing Physician Notes Attending attestation: Case reviewed with the advanced practitioner. I have personally performed a history and physical examination on the patient. I have reviewed the advanced practitioner's documentation on the date of service referenced in note, and I agree with, and take responsibility for the plan of care. Patient remains in sinus rhythm. Rates 80s to 90s with minimal walking in his room. EKG performed 11/26/2024 at 4 AM revealed sinus rhythm at 90 bpm with Mobitz type I second-degree AV block. Still with significant bilateral lower extremity edema, varicose veins noted in the right lower extremity. 4.7 L of urinary output measured in the last 24 hours. Continue metoprolol succinate 50 mg twice daily, Eliquis 5 mg twice daily. Spironolactone 12.5 mg added. Avoiding MIRIAM inhibitor/ARB/ARNI due to history of angioedema. Continue atorvastatin and fenofibrate for history of dyslipidemia with hypertriglyceridemia. I spent a total of 20 minutes coordinating, documenting, and providing care for this patient excluding time spent in the performance of separately billed ser vices or time spent by another provider. Alexis Ross, DO Subjective Patient reports feeling "well" today. Anxious for discharge but admits to on going LE edema b/l. SOB improved. Palpitations improved. Successful TEJAS guided CV yesterday. Currently maintaining NSR Review of Systems Review of Systems: All systems reviewed & are unremarkable except as noted in HPI & below Physical Exam Constitutional: WD/WN, vitals as above well nourished; no acute distress Neck: normal visual inspection Respiratory: normal respiratory effort Auscultation: + diminished lung sounds; no crackles and no rales Cardiovascular: Rate/Rhythm: + irregularly irregular Heart Sounds: normal S1 and normal S2; no murmur Vessels: no JVD Extremities: + edema (2+ LE edema to thighs) and + varicosities Gastrointestinal (Abdomen): normal bowel sounds, soft, nontender, no hepatosplenomegaly Musculoskeletal: no cyanosis or clubbing, extremities motor strength 5/5 Results & Data Vital Signs (Past 12 Hours) Vital Signs Temp Pulse Resp BP Pulse Ox O2 Del Method 11/26/24 12:00 54 L 20 149/99 H 98 Room Air 11/26/24 08:18 36.3 C L 95 H 18 153/81 H 99 Room Air 11/26/24 03:56 36.8 C 95 H 18 129/87 95 Room Air Laboratory Results Cardiac Enzymes 11/26/24 Range/Units 07:12 AST 41 H (13-39) U/L CBC 11/26/24 Range/Units 07:12 WBC 4.38 L (4.8-10.8) K/ul RBC 4.23 L (4.70-6.10) M/uL Hgb 13.1 L (14.0-18.0) g/dl Hct 39.5 L (42.0-52.0) % Plt Count 210 (130-400) K/uL Comprehensive Metabolic Panel 11/26/24 Range/Units 07:12 Sodium 139 (136-145) mmol/L Potassium 4.0 (3.5-5.1) mmol/L Chloride 103 (98-107) mmol/L Carbon Dioxide 34 H (21-32) mmol/L BUN 28 H (6-23) mg/dl Creatinine 1.33 (0.6-1.4) mg/dl Glucose 104 H (70-99(Fasting)) mg/dl Calcium 9.4 (8.6-10.3) mg/dl AST 41 H (13-39) U/L ALT 28 (7-52) U/L Alkaline Phosphatase 34 (34-104) U/L Total Protein 7.0 (6.0-8.3) gm/dl Albumin 3.9 (3.4-5.0) gm/dl Intake and Output 11/25/24 11/26/24 11/26/24 22:59 06:59 14:59 Intake Total 800.0 / 1588.666 300 / 300 Output Total 1150 / 2300 250 / 2300 2501 / 2501 Balance -350.0 / -711.334 -250 / -711.334 -2201 / -2201 Intake: IV 600.0 / 888.666 Heparin 22480 Unit/500 ml D5w 500.0 / 670.0 25,000 units In 500 ml @ 1,650 UNITS/HR 33 mls/hr IV .[id number] [facility] Rx#:[id number] Magnesium Sulfate / D5w 1 gm In 100 / 200.000 100 ml @ 50 mls/hr IV Q2H [facility] Rx#:[id number] Oral 200 / 700 300 / 300 Output: Urine 1150 / 2300 250 / 2300 2500 / 2500 # Bowel Movements / Other: Weight 111.2 kg Diagnostic Findings Telemetry reviewed: NSR, no recurrent Atrial flutter Occ PAC's noted Medications Administered Current Inpatient Medications Acetaminophen (Acetaminophen 325 Mg Tab) 650 mg PO Q4H PRN PRN Reason: Pain or Fever Stop: 12/24/24 22:56 Albuterol (Albuterol Hfa 8 Gm Inhaler) 2 puffs INH Q4H PRN PRN Reason: sob Stop: 12/24/24 22:56 Apixaban (Apixaban 5 Mg Tablet) 5 mg PO BID [facility] Stop: 12/25/24 20:59 Last Admin: 11/26/24 08:34 Dose: 5 mg Atorvastatin Calcium (Atorvastatin 40 Mg Tab) 40 mg PO DAILY [facility] Stop: 12/25/24 08:59 Last Admin: 11/26/24 08:34 Dose: 40 mg Fenofibrate (Fenofibrate Nanocrystallized 145 Mg Tablet) 145 mg PO DAILY [facility]; Protocol Stop: 12/26/24 08:59 Last Admin: 11/26/24 08:34 Dose: 145 mg Fluticasone/Vilanterol (Fluticasone/Vilanterol 200/25mcg 14 Puffs/Inhaler) 1 puffs INH DAILY [facility] Stop: 12/25/24 08:59 Last Admin: 11/26/24 08:35 Dose: 1 puffs Folic Acid (Folic Acid 1 Mg Tab) 1 mg PO QAM [facility] Stop: 12/25/24 08:59 Last Admin: 11/26/24 08:35 Dose: 1 mg Furosemide (Furosemide 40 Mg/4 Ml Vial) 60 mg IV [id number] [facility] Stop: 12/25/24 13:59 Last Admin: 11/26/24 13:18 Dose: 60 mg Gabapentin (Gabapentin 300 Mg Cap) 300 mg PO TID [facility] Stop: 12/24/24 22:56 Last Admin: 11/26/24 13:18 Dose: 300 mg Lorazepam (Lorazepam 0.5 Mg Tab) 0.5 mg PO HS PRN PRN Reason: Anxiety Stop: 12/24/24 22:56 Lorazepam (Lorazepam 2 Mg/1 Ml Vial) 0.5 mg IV Q4H PRN PRN Reason: Anxiety/Agitation Stop: 12/24/24 22:56 Metoprolol Succinate (Metoprolol Succ 50mg Ext Rel Tab) 50 mg PO BID [facility] Stop: 12/25/24 20:59 Last Admin: 11/26/24 08:35 Dose: 50 mg Multivitamins (Multivitamin Tab) 1 tab PO DAILY [facility] Stop: 12/25/24 08:59 Last Admin: 11/26/24 08:36 Dose: 1 tab Nitroglycerin (Nitroglycerin Sl 0.4 Mg/Tab Tab) 0.4 mg SL Q5M PRN PRN Reason: Chest Pain Stop: 12/24/24 22:56 Polyethylene Glycol (Polyethylene (Miralax) 17 Gm Pack) 17 gm PO DAILY PRN PRN Reason: Constipation Stop: 12/24/24 22:56 Spironolactone (Spironolactone 12.5 Mg Tab) 12.5 mg PO DAILY [facility] Stop: 12/26/24 11:44 Last Admin: 11/26/24 11:59 Dose: 12.5 mg Thiamine HCl (Thiamine Hcl 50 Mg Tablet) 50 mg PO QAM [facility] Stop: 12/25/24 08:59 Last Admin: 11/26/24 08:36 Dose: 50 mg
--- NOTE | 2024-11-26 15:12 | Hospitalist Progress Note ---
Date of Service November 26, 2024 Assessment & Plan (1) Atrial flutter with rapid ventricular response: Plan: 59-year-old male with past medical history significant for prediabetes, asthma, hypertension, CKD stage III, history of diverticulitis of colon, hydrocele, left foot drop, anxiety, history of tobacco use comes because of new onset flutter and CHF. A flutter with rapid ventricular response Acute on chronic CHF with reduced EF Possible tachycardia induced cardiomyopathy Possible Demand Ischemia Patient presented with bilateral lower extremity edema and weight gain of 35 pounds Echocardiogram showed EF of 37% with moderate global hypokinesis High-sensitivity troponin mildly elevated with flat trend Chest x-ray on admission showed cardiomegaly with pulmonary edema Status post TEJAS and cardioversion on 11/25/2024 Continue on metoprolol, Eliquis Continue on IV diuretics Continue telemonitoring History of CKD stage III Presented with creatinine 1.2 monitor Hypertension Not on meds We will monitor Prediabetes Hba1c of 5.4% History of asthma Continue home inhalers Hyperlipidemia Statin, continue Right inguinal hernia surgical follow up DVT prophylaxis Eliquis Disposition lives at home with family Full code. Time spent evaluating patient, direct bedside care, chart review, placing orders, interpretation of diagnostic studies, discussion with consultants, patient, and family members, as well as other required patient management activities is 50 minutes Please note the above document was generated using voice recognition software. It may contain grammatical, syntax or spelling errors. Any formal questions or concerns about the content, text or information contained within the body of this dictation should be directly addressed to the provider for clarification Admission and Anticipated Discharge Date Admission Date: November 24, 2024 Subjective Patient seen and examined at bedside. He reports that he is feeling much better; shortness of breath has significantly improved He continues to have 3+ edema in bilateral lower extremity Telemetry shows normal sinus rhythm Review of Systems Review of Systems: All systems reviewed & are unremarkable except as noted in Subjective Physical Exam Physical Exam: General- Not in acute distress Head- atraumatic Eyes- PERRL. ENT- oropharynx clear Neck- supple, no JVD. Lungs- clear to auscultation no wheezing or crackles. Heart- irregular rhythm; tachycardia, no murmur, no gallop. Abdomen- normal bowel sounds, soft, nontender, no distension Extremities-3+ pitting edema in bilateral lower extremity Neuro- alert, oriented PERRL, no facial palsy; no dysarthria; moves extremities Results & Data Results & Data Vital Signs (Past 12 Hours) Vital Signs Temp Pulse Resp BP Pulse Ox O2 Del Method 11/26/24 12:00 54 L 20 149/99 H 98 Room Air 11/26/24 08:18 36.3 C L 95 H 18 153/81 H 99 Room Air 11/26/24 03:56 36.8 C 95 H 18 129/87 95 Room Air
--- NOTE | 2024-11-26 15:20 | Electrocardiogram Report ---
Test Reason : Blood Pressure : */* mmHG Vent. Rate : 98 BPM Atrial Rate : 98 BPM P-R Int : 256 ms QRS Dur : 98 ms QT Int : 382 ms P-R-T Axes : 30 88 82 degrees QTcB Int : 487 ms Sinus rhythm with 1st degree A-V block with 2nd degree A-V block (Mobitz I) Premature atrial complexes Low voltage QRS QTcB >= 480 msec Abnormal ECG When compared with ECG of 25-Nov-2024 11:53, Premature atrial complexes are now Present Nonspecific T wave abnormality now evident in Lateral leads Confirmed by Geoff Higginbotham ([id number]) on 11/26/2024 3:20:13 PM Referred By: Virginia Olivo Confirmed By: Geoff Higginbotham
[2024-11-26 20:12] VITALS: RESP 18
[2024-11-26] MEDS: LORazepam 0.5 MG TAB PO PRN (21:13)
[2024-11-27 04:23] VITALS: TEMP 97.7
[2024-11-27 08:03] VITALS: BP 128/82; O2SAT 100
[2024-11-27 10:10] LABS: BUN Creatinine Ratio 18.9 (10-20); Calcium 9.8 mg/dl (8.6-10.3); Creatinine Clr Calc Pharmacy 81.7 ml/min; Potassium 3.6 mmol/L (3.5-5.1)
--- NOTE | 2024-11-27 11:18 | Cardiology Progress Note ---
Date of Service November 27, 2024 Assessment & Plan (1) Atrial flutter with rapid ventricular response: (2) Acute on chronic heart failure with reduced ejection fraction and diastolic dysfunction: (3) HTN (hypertension): (4) Mobitz (type) I (Wenckebach's) atrioventricular block: Plan 11/25/24 Patient admitted with newly diagnosed atrial flutter RVR. Duration unknown, but based on symptoms of dyspnea and worsening edema, likely present for at least 1 month. Continue IV heparin. Heart rates improved with oral metoprolol and IV diltiazem gtt overnight. Diltiazem discontinued due to atrial flutter with slow rates and findings of reduced LVEF. Echo this morning revealed moderate global hypokinesis with LVEF 37%. Likely tachyinduced. CHADSVASC score of 2-3 (CHF, HTN, and borderline DM - not currently treated). group home anticoagulation will be needed with Eliquis 5 mg BID on discharge. Long discussion with patient about treatment options for atrial flutter. Given his newly diagnosed cardiomyopathy and difficult to control rates, recommend proceeding with TEJAS/CV in attempts to restore NSR. Post cardioversion, will transition oral metoprolol tartrate to metoprolol succinate. He is agreeable. Currently NPO. In regards to treatment for his newly diagnosed cardiomyopathy; HFrEF Ongoing diuretic therapy recommended for LE edema. Venous duplex negative for DVT Increase lasix to 60 mg IV BID. Add spironolactone 12.5 mg daily Monitor electrolytes Monitor I+O's Daily weight with standing scale. Start metoprolol succinate If BP allows, would benefit from Entresto. 11/26/24: Patient underwent successful TEJAS guided cardioversion yesterday and NSR rest ored. Maintaining NSR today. Continue metoprolol 50 mg BID. Transitioned to Eliquis 5 mg BID. (outpatient script sent to [facility] and to verify cost and make sure it is affordable) He has ongoing LE edema b/l. Likely multifactorial given his HFrEF, high dose gabapentin and he does have significant varicosities noted. Recommend one additional day of IV diuretics. Monitor I+O's He is negative 2.7 L since admission Continue furosemide 60 mg IV BID today. Spironolactone 12.5 mg daily added. Monitor renal function and electrolytes He will need oral furosemide upon discharge. Findings of new cardiomyopathy upon admission, Likely tachyinduced, LVEF 37%. GDMT initiated Continue metoprolol succinate. He has allergy to lisinopril (angioedema) - therefore, trial of MIRIAM/ARB or Entresto is contraindicated. Spironolactone initiated will transition to loop diuretic on discharge. Consider outpatient nuclear lexiscan to further evaluation LVEF as well. He may benefit from outpatient vascular evaluation with [facility] due to his significant varicosities 11/27/24: Ongoing diuresis over the last 24 hours noted. Edema persists but improved. Edema multifactorial with CHF, venous insufficiency with chronic lymphedema, and high dose gabapentin. Stable cardiac symptoms for discharge today. Transition to oral diuretics with torsemide 20 mg daily on discharge along with spironolactone 12.5 mg daily Continue metoprolol 50 mg BID and Eliquis 5 mg BID on discharge. care services manager verified cost of Eliquis is $12 per month, with first month free. Avoid MIRIAM/ARB or Entresto given history of angioedema with lisinopril. Consider outpatient nuclear stress test then repeat echo after several months of medical therapies given reduced LVEF. Continue statin Stable for discharge today. Should have f/u BMP next week given changes to medications and diuretics. Will arrange 2-4 week cardiology hospital f/u as well lat Dianelys Pineda Case discussed with Dr. Ross. I spent a total of 30 minutes on the date of service in preparation, delivery, and documentation of the care provided to this patient, excluding any time spent in the performance of separately billed services. Padmini Red PA-C Department of Cardiology, [facility] This chart was completed in part utilizing Speech Voice Recognition Software. Grammatical errors, random word insertions, pronoun errors, and incomplete se ntences are an occasional consequence of this system due to software limitations, ambient noise, and hardware issues. Any formal questions or concerns about the content, text, or information contained within the body of this dictation should be directly addressed to the provider for clarification. Admission and Anticipated Discharge Date Admission Date: November 24, 2024 Supervising Physician Co-Signing Physician Notes Attending attestation: Case reviewed with the advanced practitioner. I have personally performed a history and physical examination on the patient. I have reviewed the advanced practitioner's documentation on the date of service referenced in note, and I agree with, and take responsibility for the plan of care. Stable for discharge with medication plan as outlined by Kvng Red PA-C. I spent a total of 20 minutes coordinating, documenting, and providing care for this patient excluding time spent in the performance of separately billed services or time spent by another provider. Alexis Ross DO Subjective Patient resting comfortably in bed. Hoping and anxious for discharge today. reports significant urination over the last 24 hours. Edema still persistent but improved from admission. No orthopnea, PND. No chest pain or SOB. No palpitations. Maintaining NSR. Review of Systems Review of Systems: All systems reviewed & are unremarkable except as noted in HPI & below Physical Exam Constitutional: WD/WN, vitals as above well nourished; no acute distress Neck: normal visual inspection Respiratory: normal respiratory effort Auscultation: + diminished lung sounds; no crackles and no rales Cardiovascular: Rate/Rhythm: regular rate and regular rhythm Heart Sounds: normal S1 and normal S2; no murmur Vessels: no JVD Extremities: + edema (2+ LE edema to knees) and + varicosities Gastrointestinal (Abdomen): normal bowel sounds, soft, nontender, no hepatosplenomegaly Musculoskeletal: no cyanosis or clubbing, extremities motor strength 5/5 Results & Data Vital Signs (Past 12 Hours) Vital Signs Temp Pulse Resp BP Pulse Ox O2 Del Method 11/27/24 08:00 36.5 C 81 18 128/82 100 Room Air 11/27/24 04:23 36.5 C 85 18 150/88 H 97 Room Air Laboratory Results Comprehensive Metabolic Panel 11/27/24 Range/Units 09:04 Sodium 141 (136-145) mmol/L Potassium 3.6 (3.5-5.1) mmol/L Chloride 100 (98-107) mmol/L Carbon Dioxide 34 H (21-32) mmol/L BUN 23 (6-23) mg/dl Creatinine 1.22 (0.6-1.4) mg/dl Glucose 123 H (70-99(Fasting)) mg/dl Calcium 9.8 (8.6-10.3) mg/dl Intake and Output 11/26/24 11/27/24 11/27/24 22:59 06:59 14:59 Intake Total 300 / 1100 500 / 1100 Output Total 1700 / 6301 1100 / 6301 1700 / 1700 Balance -1400 / -5201 -600 / -5201 -1700 / -1700 Intake: Oral 300 / 1100 500 / 1100 Output: Urine 1700 / 6300 1100 / 6300 1700 / 1700 Diagnostic Findings Telemetry reviewed: NSR with frequent atrial ectopy. HR ranging 80-100 bmp Medications Administered Current Inpatient Medications Acetaminophen (Acetaminophen 325 Mg Tab) 650 mg PO Q4H PRN PRN Reason: Pain or Fever Stop: 12/24/24 22:56 Albuterol (Albuterol Hfa 8 Gm Inhaler) 2 puffs INH Q4H PRN PRN Reason: sob Stop: 12/24/24 22:56 Apixaban (Apixaban 5 Mg Tablet) 5 mg PO BID [facility] Stop: 12/25/24 20:59 Last Admin: 11/27/24 09:05 Dose: 5 mg Atorvastatin Calcium (Atorvastatin 40 Mg Tab) 40 mg PO DAILY [facility] Stop: 12/25/24 08:59 Last Admin: 11/27/24 09:05 Dose: 40 mg Fenofibrate (Fenofibrate Nanocrystallized 145 Mg Tablet) 145 mg PO DAILY [facility]; Protocol Stop: 12/26/24 08:59 Last Admin: 11/27/24 09:06 Dose: 145 mg Fluticasone/Vilanterol (Fluticasone/Vilanterol 200/25mcg 14 Puffs/Inhaler) 1 puffs INH DAILY [facility] Stop: 12/25/24 08:59 Last Admin: 11/27/24 09:05 Dose: 1 puffs Folic Acid (Folic Acid 1 Mg Tab) 1 mg PO QAM [facility] Stop: 12/25/24 08:59 Last Admin: 11/27/24 09:06 Dose: 1 mg Gabapentin (Gabapentin 300 Mg Cap) 300 mg PO TID [facility] Stop: 12/24/24 22:56 Last Admin: 11/27/24 09:06 Dose: 300 mg Lorazepam (Lorazepam 0.5 Mg Tab) 0.5 mg PO HS PRN PRN Reason: Anxiety Stop: 12/24/24 22:56 Last Admin: 11/26/24 21:13 Dose: 0.5 mg Lorazepam (Lorazepam 2 Mg/1 Ml Vial) 0.5 mg IV Q4H PRN PRN Reason: Anxiety/Agitation Stop: 12/24/24 22:56 Metoprolol Succinate (Metoprolol Succ 50mg Ext Rel Tab) 50 mg PO BID [facility] Stop: 12/25/24 20:59 Last Admin: 11/27/24 09:06 Dose: 50 mg Multivitamins (Multivitamin Tab) 1 tab PO DAILY [facility] Stop: 12/25/24 08:59 Last Admin: 11/27/24 09:06 Dose: 1 tab Nitroglycerin (Nitroglycerin Sl 0.4 Mg/Tab Tab) 0.4 mg SL Q5M PRN PRN Reason: Chest Pain Stop: 12/24/24 22:56 Polyethylene Glycol (Polyethylene (Miralax) 17 Gm Pack) 17 gm PO DAILY PRN PRN Reason: Constipation Stop: 12/24/24 22:56 Spironolactone (Spironolactone 12.5 Mg Tab) 12.5 mg PO DAILY [facility] Stop: 12/26/24 11:44 Last Admin: 11/27/24 09:06 Dose: 12.5 mg Thiamine HCl (Thiamine Hcl 50 Mg Tablet) 50 mg PO QAM [facility] Stop: 12/25/24 08:59 Last Admin: 11/27/24 09:06 Dose: 50 mg Torsemide (Torsemide 20 Mg Tab) 20 mg PO QAM [facility] Stop: 12/28/24 08:59
[2024-11-27 12:09] VITALS: PULSE 77
--- NOTE | 2024-11-27 14:08 | Discharge Summary ---
Date of Service November 27, 2024 Admission HPI Per Admitting Provider 59-year-old male with past medical history significant for prediabetes, asthma, hypertension, CKD stage III, history of diverticulitis of colon, hydrocele, left foot drop, anxiety, history of tobacco use comes because of new onset flutter and CHF. Patient says having bilateral extremity swelling going on for last 2 weeks. Progressively worsening. He has left lower extremity edema on and off from lymphedema but now has edema in both legs. His scrotum is also swollen. He thinks he also has right inguinal hernia. No pain at inguinal hernia site. He is also getting short of breath on exertion. Sometimes in the night he is getting up gasping for breath. He does not lie flat. Sometimes feeling dizzy last 2 weeks. Went to PCP and found to be in rapid A flutter and was advised to come to the ER. Hemodynamics are okay. Denies any chest pain. No nausea. Afebrile. No cough. Vision is okay. No runny nose or sore throat. Says currently he is drinking alcohol only once in a while. Past medical history. As mentioned above Past surgical history. Colonoscopy. Disc repair L4/L5. EGD. EGD with biopsy. Sigmoid colectomy in 2006. Reduction of bowel obstruction at age 11. Throat surgery age 7. Hydrocele repair age 31. Social history. Quit smoking 2010. Smoked 1 pack a day for 2 years. Currently drinking alcohol once in a while. No drug use. Family history. Father had heart disorder. Mother had heart disorder. Hypertension. Admission Exam Per Admitting Provider General- Not in acute distress Head- atraumatic Eyes- PERRL. ENT- oropharynx clear Neck- supple, no JVD. Lungs- clear to auscultation no wheezing or crackles. Heart- irregular rhythm; tachycardia, no murmur, no gallop. Abdomen- normal bowel sounds, soft, nontender, no distension Extremities- b/l lower extremity gross edema present, mild erythema in lower extremity seen. Neuro- alert, oriented PERRL, no facial palsy; no dysarthria; moves extremities Principal Diagnosis A flutter with rapid ventricular response Acute on chronic CHF with reduced EF Possible tachycardia induced cardiomyopathy Possible Demand Ischemia Discharge Exam General- Not in acute distress Head- atraumatic Eyes- PERRL. ENT- oropharynx clear Neck- supple, no JVD. Lungs- clear to auscultation no wheezing or crackles. Heart- regular rhythm; tachycardia, no murmur, no gallop. Abdomen- normal bowel sounds, soft, nontender, no distension Extremities-3+ pitting edema in bilateral lower extremity Neuro- alert, oriented PERRL, no facial palsy; no dysarthria; moves extremities Discharge Data Allergies Allergy/AdvReac Type Severity Reaction Status Date / Time lisinopril Allergy Severe ANGIOEDEMA Verified 11/25/24 11:25 Consultations 11/24/24 19:07 ED Decision to Admit Stat 11/25/24 08:00 Consult Cardiology Routine 11/25/24 10:47 Consult Anesthesiology Routine Procedures Performed Operation Date: 11/25/24 11:15 Actual Procedures p Echo Transesophageal - DO fiorella Muller Cardioversion - DO fiorella Muller Echo Color Flow - DO fiorella Muller Echo Doppler Complete - Alexis Ross DO Ordered Studies 11/24/24 18:22 US venous doppler [facility] Hospital Course (1) Atrial flutter with rapid ventricular response: 59-year-old male with past medical history significant for prediabetes, asthma, hypertension, CKD stage III, history of diverticulitis of colon, hydrocele, left foot drop, anxiety, history of tobacco use comes because of new onset flutter and CHF. A flutter with rapid ventricular response Acute on chronic CHF with reduced EF Possible tachycardia induced cardiomyopathy Possible Demand Ischemia Patient presented with bilateral lower extremity edema and weight gain of 35 pounds Echocardiogram showed EF of 37% with moderate global hypokinesis High-sensitivity troponin mildly elevated with flat trend Chest x-ray on admission showed cardiomegaly with pulmonary edema During the hospitalization, patient underwent TEJAS and cardioversion by cardiology on November 25, 2024. He was diuresed with IV Lasix with -7.4 L on discharge. Patient's bilateral edema improved as well. Patient maintained sinus rhythm after cardioversion. He was discharged home on oral diuretics, metoprolol and Eliquis. Discussed adverse reactions/side effects of Eliquis. Patient verbalized understanding. Patient to follow-up with PCP and cardiology Please note the above document was generated using voice recognition software. It may contain grammatical, syntax or spelling errors. Any formal questions or concerns about the content, text or information contained within the body of this dictation should be directly addressed to the provider for clarification Total Time Total Time Spent Total Time Spent (In Minutes): 45 Total Time Includes: Examination of the Patient, Discharge Planning, Medication Reconciliation, Communication With Other Providers and Other Discharge Plan Discharge Items Patient Disposition: Home - Self-Care Reason For Visit: NEW ONSET A FLUTTER, CHF Discharge Diagnosis: A flutter with rapid ventricular response Acute on chronic CHF with reduced EF Possible tachycardia induced cardiomyopathy Possible Demand Ischemia Condition on Discharge: Serious Activity: Resume your previous activity Non-emergency contact: Primary Care Provider Call non-emergency contact if: you have any medication questions and your symptoms worsen Follow-up/Referrals: Rashmi Lindo MD [Primary Care Provider] - (Date & Time 12/02/2024 10:00 AM Provider: Patricia العراقي MD General Internal Medicine [facility] ) Diet: Regular Addtl Attending Provider Instructions: You were admitted to the hospital with irregular hear rhythm and heart failure. You were evaluated by cardiology. You are prescribed following medications: 1) Take metoprolol 50mg twice a day. 2) Take Eliquis 5mg twice a day. 3) Spironolactone 12.5mg once a day. 4) Torsemide 20mg once a day. Follow up with PCP as scheduled. Measure your weights daily at the same time. If your weight goes up by 3 to 5lbs, take extra dose of torsemide in the afternoon and contact your PCP. Pending Studies at Discharge: No Stand-Alone Forms: My [facility] [employer], Smoking Cessation Medications and DC Order Prescriptions: New Eliquis 5 mg Tablet 5 mg PO BID Qty: 60 0RF torsemide 20 mg Tablet 20 mg PO QAM 30 Days Qty: 30 0RF metoprolol succinate 50 mg Tablet Extended Release 24 Hr 50 mg PO BID 30 Days Qty: 60 0RF spironolactone 25 mg Tablet 12.5 mg PO DAILY 30 Days Qty: 15 0RF Continued atorvastatin 40 mg tablet 40 mg PO DAILY fluticasone propion-salmeterol 250-50 mcg/dose blister with device 1 inh INHALATION BID lorazepam 0.5 mg tablet 0.5 mg PO HS PRN (Reason: Anxiety) gabapentin 300 mg capsule 300 mg PO TID albuterol sulfate 90 mcg/actuation HFA aerosol inhaler 2 puff INHALATION Q4H PRN (Reason: sob) fenofibrate 160 mg tablet 160 mg PO DAILY omega-3 fatty acids 1,000 mg Capsule 1,000 mg PO DAILY multivitamin Tablet 1 tab PO DAILY milk thistle 500 mg Capsule 1,000 mg PO DAILY Rx Instructions: give with meal/snack Discharge Orders: Discharge Order (Routine); Ordered 11/27/24 Ordered By: Pietro Amleida Admission Data Admit Date/Time: 11/24/24 20:28 Attending Provider: Pietro Almeida Admit Provider: Jorge Nguyen Primary Care Provider: Rashmi Lindo Other Providers: Jorge Nguyen; Silvio Dorman Other Interventions: Discharge Summary Assessment (RN) Last Done: 11/27/24 12:07
[2024-11-28] MEDS ORDERED: TORSEMIDE 20 MG TAB PO SCH (09:00)
== END 2024-11-27 12:45 | disposition home or self-care (01) | DRG 308 ==
LOC: ED 16:33 → SUATTDRO 20:28 → 4W 20:28